=== PATIENT | female | born 1950 | race Caucasian/White ===

== ENCOUNTER 2019-11-30 09:42 | Outpatient (CLI) | payer MEDICARE, OTHER, SELFPAY ==
[2019-11-30 10:26] LABS: Alanine Aminotransferase 16 U/L (4-35); Alkaline Phosphatase 58 U/L (38-126); Aspartate Amino Transferase 25 U/L (14-36); Bilirubin,Total 0.6 mg/dL (0.2-1.3); Blood Urea Nitrogen 17 mg/dL (7-17); Calcium 9.2 mg/dL (8.4-10.2); Carbon Dioxide 34 mmol/L (22-30); Chloride 98 mmol/L (98-107); Estimated Glomerular Filt Rate > 60; Glucose 92 mg/dL (65-105); Phosphorus 3.5 mg/dL (2.5-4.5); Potassium 4.1 mmol/L (3.4-5.0); Sodium 140 mmol/L (137-145)
[2019-11-30 10:38] LABS: Parathyroid Intact 86.3 pg/mL (7.5-53.5)
[2019-11-30 11:07] LABS: Free T4 Free Thyroxine 0.92 ng/mL (0.78-2.19); Vitamin D 25 Hydroxy 61.5 ng/mL
[2019-11-30 13:35] LABS: Cortisol Baseline 7.72 ug/dL
[2019-12-02 04:16] LABS: Ionized Calcium 5.2 mg/dL (4.8-5.6)
[2019-12-02 13:38] LABS: Adrenocorticotropic Hormone 12 pg/mL (6-50)
[2019-12-03 05:27] LABS: Triiodothyronine T3 Free 2.4 pg/mL (2.3-4.2)
[2019-12-03 12:36] LABS: C-Peptide 1.03 ng/mL (0.80-3.85)
== END 2019-11-30 09:43 | disposition home or self-care (01) ==
PROVIDERS: PCP Family Medicine; Visit Provider Internal Medicine Endocrinology, Diabetes & Metabolism
DX: E03.9 Hypothyroidism, unspecified (principal); E21.3 Hyperparathyroidism, unspecified; E16.2 Hypoglycemia, unspecified; E04.9 Nontoxic goiter, unspecified
CPT/HCPCS: 36415; 80053; 80069; 82024; 82306; 82330; 82533; 83970; 84100; 84439; 84443; 84481; 84681

== ENCOUNTER 2020-06-14 13:51 | Outpatient (CLI) | payer MEDICARE, OTHER, SELFPAY ==
[2020-06-14 14:33] LABS: Basophils Percent Auto 0.6 % (0.2-1.2); Eosinophils Absolute Auto 0.1 K/mm3 (0-0.3); Eosinophils Percent Auto 2.2 % (0-4.4); Hematocrit 43.8 % (37.0-47.0); Hemoglobin 14.8 g/dL (12.0-15.0); Immature Granulocyte Absolute 0.01 K/mm3 (0.00-0.031); Immature Granulocyte Percent A 0.2 % (0-0.5); Lymphocytes Absolute Auto 1.14 K/mm3 (0.9-3.2); Lymphocytes Percent Auto 22.4 % (18.3-44.2); Mean Corpuscular HGB Conc 33.8 g/dl (32-36); Mean Corpuscular Hemoglobin 33.1 pg (26-34); Mean Platelet Volume 10.2 fl (7.4-10.4); Monocytes Absolute Auto 0.4 K/mm3 (0.1-0.6); Monocytes Percent Auto 8.4 % (2.6-8.5); Neutrophils Absolute Auto 3.4 K/mm3 (1.3-6.7); Neutrophils Percent Auto 66.2 % (45.5-73.1); Platelet Count Result 189 k/mm3 (150-375); Red Blood Count 4.47 M/mm3 (4.2-5.4); Red Cell Distribution Width 12.4 % (11.5-14.5); White Blood Count 5.1 K/mm3 (4.5-10.0)
[2020-06-14 16:43] LABS: Albumin Level 4.3 g/dL (3.5-5.1); Anion Gap 6 mmol/L (8-16); Blood Urea Nitrogen 19 mg/dL (7-17); Calcium 9.3 mg/dL (8.4-10.2); Carbon Dioxide 31 mmol/L (22-30); Chloride 99 mmol/L (98-107); Estimated Glomerular Filt Rate > 60; Glucose 97 mg/dL (65-105); Sodium 136 mmol/L (137-145)
[2020-06-14 16:55] LABS: Parathyroid Intact 64.6 pg/mL (7.5-53.5)
[2020-06-14 17:02] LABS: Free T4 Free Thyroxine 0.99 ng/mL (0.78-2.19); Vitamin D 25 Hydroxy 66.4 ng/mL
[2020-06-17 05:48] LABS: Triiodothyronine T3 Free 2.3 pg/mL (2.3-4.2)
[2020-06-17 05:50] LABS: Ionized Calcium 5.2 mg/dL (4.8-5.6)
[2020-06-20 23:47] LABS: Calcium/Creatinine Ratio, Ur 328 mg/g creat (10-320); Urine Calcium, Random 4.1 mg/dL (***); Urine Creatinine, Random 13 mg/dL (20-275)
== END 2020-06-14 13:52 | disposition home or self-care (01) ==
PROVIDERS: Internal Medicine Endocrinology, Diabetes & Metabolism; PCP Family Medicine; Visit Provider Internal Medicine Hematology & Oncology
DX: R71.8 Other abnormality of red blood cells (principal); E03.9 Hypothyroidism, unspecified; E21.3 Hyperparathyroidism, unspecified
CPT/HCPCS: 36415; 80069; 82306; 82310; 82330; 82570; 82607; 83970; 84439; 84443; 84481; 85025

== ENCOUNTER 2020-06-28 10:29 | Outpatient (CLI) | payer MEDICARE, OTHER, SELFPAY ==
--- NOTE | 2020-06-28 10:37 | EST_ITS ---
Patient Info Name: Oralia العراقي Age: 69 years : 1950 Gender: Female Ht: 60 in Wt: 109 lbs BSA: 1.45 m2 HR: 48 bpm BP: 152 / 72 mmHg Heart Rhythm: Sinus Rhythm Technical Quality: Excellent Exam Date: 06/28/2020 10:59 AM Exam Location: [facility] Pulmonary Patient Status: Outpatient Admit Date: 06/28/2020 Staff Ordering Physician: Lisy Gayle MD Machine Grainer: Esther Guzman RDCS Attending Provider: Corazon Jameson ANP Referring Physician: Nalini FRANKLIN; Exercise Technologist: Abner Avila RDCS, RT Exam Type: CA stress echo Study Info Indications R07.9 - Chest pain, unspecified Treadmill exercise stress echocardiogram is performed. Summary 1. No abnormal ST/T wave changes with exercise. 2. No arrhythmias were observed during the examination. 3. Normal left ventricular systolic function with no regional wall motion abnormalities noted at rest and estimated EF of 65%. 4. Left ventricular ejection fraction is hyperdynamic with smaller cavity size no wall motion abnormalities, and ejection fraction of 80%.. 5. Atypical stress-induced L breast sensation. 6. Good exercise capacity for age. 7. Normal heart rate blood pressure response to exercise. 8. Overall normal study without evidence of myocardial ischemia by electrocardiogram or by echocardiogram. Stress Echo Findings Left Ventricle Normal left ventricular systolic function with no regional wall motion abnormalities noted at rest and estimated EF of 65%. Left ventricular ejection fraction is hyperdynamic with smaller cavity size no wall motion abnormalities, and ejection fraction of 80%.. Protocol: John Stress ECG Details Stage: REST Duration (min): 5 min : 1 sec Speed (mph): 0.0 Grade (%): 0 HR (bpm): 55 SBP (mmHg): 152 DBP (mmHg): 72 METS: --- Stage: REST Duration (min): 5 min : 40 sec Speed (mph): 0.0 Grade (%): 0 HR (bpm): 49 SBP (mmHg): 152 DBP (mmHg): 72 METS: --- Stage: REST Duration (min): 21 min : 17 sec Speed (mph): 0.0 Grade (%): 0 HR (bpm): 59 SBP (mmHg): 152 DBP (mmHg): 72 METS: --- Stage: STAGE 1 Duration (min): 1 min : 0 sec Speed (mph): 1.7 Grade (%): 10 HR (bpm): 87 SBP (mmHg): 152 DBP (mmHg): 72 METS: --- Stage: STAGE 1 Duration (min): 2 min : 0 sec Speed (mph): 1.7 Grade (%): 10 HR (bpm): 104 SBP (mmHg): 152 DBP (mmHg): 72 METS: --- Stage: STAGE 1 Duration (min): 3 min : 0 sec Speed (mph): 1.7 Grade (%): 10 HR (bpm): 117 SBP (mmHg): 192 DBP (mmHg): 86 METS: --- Stage: STAGE 2 Duration (min): 1 min : 0 sec Speed (mph): 2.5 Grade (%): 12 HR (bpm): 126 SBP (mmHg): 192 DBP (mmHg): 86 METS: --- Stage: STAGE 2 Duration (min): 2 min : 0 sec Speed (mph): 2.5 Grade (%): 12 HR (bpm): 129 SBP (mmHg): 182 DBP (mmHg): 90 METS: --- Stage: STAGE 2 Duration (min): 2 min : 59 sec Speed (mph): 2.5 Grade (%): 12 HR (bpm): 133 SBP (mmHg): 182 DBP (mmHg): 90 METS:
== END 2020-06-28 10:30 | disposition home or self-care (01) ==
PROVIDERS: PCP Family Medicine; Visit Provider Family Medicine
DX: R07.9 Chest pain, unspecified (principal); R53.83 Other fatigue; R60.0 Localized edema
CPT/HCPCS: 93351

== ENCOUNTER 2021-03-02 11:41 | Outpatient (CLI) | payer MEDICARE, OTHER, SELFPAY ==
[2021-03-02 11:59] LABS: Basophils Percent Auto 0.5 % (0.2-1.2); Eosinophils Absolute Auto 0.1 K/mm3 (0-0.3); Hematocrit 45.1 % (37.0-47.0); Hemoglobin 15.3 g/dL (12.0-15.0); Immature Granulocyte Absolute 0.01 K/mm3 (0.00-0.031); Immature Granulocyte Percent A 0.2 % (0-0.5); Lymphocytes Absolute Auto 1.02 K/mm3 (0.9-3.2); Lymphocytes Percent Auto 18.3 % (18.3-44.2); Mean Corpuscular HGB Conc 33.9 g/dl (32-36); Mean Corpuscular Hemoglobin 33.8 pg (26-34); Mean Corpuscular Volume 99.6 fl (80-100); Mean Platelet Volume 10.3 fl (7.4-10.4); Monocytes Absolute Auto 0.5 K/mm3 (0.1-0.6); Monocytes Percent Auto 8.1 % (2.6-8.5); Neutrophils Percent Auto 70.9 % (45.5-73.1); Platelet Count Result 182 k/mm3 (150-375); Red Blood Count 4.53 M/mm3 (4.2-5.4); Red Cell Distribution Width 12.8 % (11.5-14.5); White Blood Count 5.6 K/mm3 (4.5-10.0)
== END 2021-03-02 11:42 | disposition home or self-care (01) ==
LOC: ANHLAB 11:43
PROVIDERS: PCP Family Medicine; Visit Provider Internal Medicine Hematology & Oncology
DX: D75.89 Other specified diseases of blood and blood-forming organs (principal)
CPT/HCPCS: 36415; 82607; 85025

== ENCOUNTER 2021-08-24 11:19 | Outpatient (CLI) | payer MEDICARE, OTHER, SELFPAY ==
[2021-08-24 13:19] LABS: Creatinine Urine 44.3 mg/dL
[2021-08-24 13:25] LABS: Creatinine 24 Hour Urine 0.8 gm/24 (0.8-1.8); Total Volume 24 Hour Urine 1900 ml
[2021-08-29 06:29] LABS: Total Volume 1900 mL; Urine Calcium 6.6 mg/dL
== END 2021-08-24 11:20 | disposition home or self-care (01) ==
PROVIDERS: PCP Family Medicine; Visit Provider Internal Medicine Endocrinology, Diabetes & Metabolism
DX: E21.3 Hyperparathyroidism, unspecified (principal); E21.5 Disorder of parathyroid gland, unspecified; E03.9 Hypothyroidism, unspecified; R82.994 Hypercalciuria
CPT/HCPCS: 81050; 82340; 82570

== ENCOUNTER 2021-10-23 14:14 | Outpatient (CLI) | payer MEDICARE, OTHER, SELFPAY ==
[2021-10-23 15:28] LABS: Free T4 Free Thyroxine 1.28 ng/mL (0.78-2.19)
== END 2021-10-23 14:15 | disposition home or self-care (01) ==
PROVIDERS: PCP Hospitalist; Visit Provider Internal Medicine Endocrinology, Diabetes & Metabolism
DX: E03.9 Hypothyroidism, unspecified (principal)
CPT/HCPCS: 36415; 84439; 84443

== ENCOUNTER 2022-03-01 09:54 | Outpatient (CLI) | payer MEDICARE, OTHER, SELFPAY ==
[2022-03-01 10:52] LABS: Basophils Percent Auto 0.6 % (0.2-1.2); Eosinophils Absolute Auto 0.1 K/mm3 (0-0.3); Eosinophils Percent Auto 1.6 % (0-4.4); Hematocrit 43.9 % (37.0-47.0); Hemoglobin 14.6 g/dL (12.0-15.0); Immature Granulocyte Absolute 0.01 K/mm3 (0.00-0.031); Immature Granulocyte Percent A 0.3 % (0-0.5); Lymphocytes Absolute Auto 0.83 K/mm3 (0.9-3.2); Lymphocytes Percent Auto 26.3 % (18.3-44.2); Mean Corpuscular HGB Conc 33.3 g/dl (32-36); Mean Corpuscular Hemoglobin 34.2 pg (26-34); Mean Corpuscular Volume 102.8 fl (80-100); Mean Platelet Volume 10.8 fl (7.4-10.4); Monocytes Absolute Auto 0.4 K/mm3 (0.1-0.6); Monocytes Percent Auto 11.4 % (2.6-8.5); Neutrophils Absolute Auto 1.9 K/mm3 (1.3-6.7); Neutrophils Percent Auto 59.8 % (45.5-73.1); Platelet Count Result 149 k/mm3 (150-375); Red Blood Count 4.27 M/mm3 (4.2-5.4); Red Cell Distribution Width 12.9 % (11.5-14.5); White Blood Count 3.2 K/mm3 (4.5-10.0)
[2022-03-01 11:04] LABS: Alanine Aminotransferase 19 U/L (6-35); Albumin Level 4.3 g/dL (3.5-5.1); Alkaline Phosphatase 80 U/L (38-126); Anion Gap 6 mmol/L (8-16); Aspartate Amino Transferase 32 U/L (14-36); Bilirubin,Total 0.8 mg/dL (0.2-1.3); Blood Urea Nitrogen 13 mg/dL (7-17); Carbon Dioxide 31 mmol/L (22-30); Chloride 102 mmol/L (98-107); Estimated Glomerular Filt Rate > 60; Glucose 95 mg/dL (65-110); Sodium 139 mmol/L (137-145)
[2022-03-01 12:09] LABS: Vitamin B12 > 1000.0 pg/mL (239-931)
== END 2022-03-01 09:55 | disposition home or self-care (01) ==
LOC: ANHLAB 09:57
PROVIDERS: PCP Hospitalist; Visit Provider Internal Medicine Hematology & Oncology
DX: D75.89 Other specified diseases of blood and blood-forming organs (principal)
CPT/HCPCS: 36415; 80053; 82607; 82746; 85025

== ENCOUNTER 2022-08-29 09:00 | Outpatient (CLI) | payer MEDICARE, OTHER, SELFPAY ==
[2022-08-29 10:15] LABS: Albumin Level 4.3 g/dL (3.5-5.1); Anion Gap 11 mmol/L (8-16); Blood Urea Nitrogen 12 mg/dL (7-17); Calcium 9.1 mg/dL (8.4-10.2); Carbon Dioxide 31 mmol/L (22-30); Chloride 97 mmol/L (98-107); Estimated Glomerular Filt Rate > 60; Glucose 87 mg/dL (65-110); Phosphorus 3.5 mg/dL (2.5-4.5); Potassium 3.8 mmol/L (3.4-5.0); Sodium 139 mmol/L (137-145)
[2022-08-29 10:27] LABS: Parathyroid Intact 78.3 pg/mL (7.5-53.5)
[2022-08-29 13:16] LABS: Vitamin D 25 Hydroxy 72.7 ng/mL
== END 2022-08-29 09:01 | disposition home or self-care (01) ==
PROVIDERS: PCP Internal Medicine; Visit Provider Internal Medicine Endocrinology, Diabetes & Metabolism
DX: E03.9 Hypothyroidism, unspecified (principal); E83.51 Hypocalcemia; M81.0 Age-related osteoporosis without current pathological fracture; R79.89 Other specified abnormal findings of blood chemistry
CPT/HCPCS: 36415; 80069; 82306; 83970; 84439; 84443

== ENCOUNTER 2022-09-27 11:41 | Outpatient (CLI) | payer MEDICARE, OTHER, SELFPAY ==
[2022-09-27 12:21] LABS: Creatinine Urine 46.4 mg/dL
[2022-09-27 14:52] LABS: Creatinine 24 Hour Urine 0.7 gm/24 (0.8-1.8); Total Volume 24 Hour Urine 1600 ml
[2022-10-03 12:42] LABS: Total Volume 1600 mL; Urine Calcium 7.6 mg/dL
== END 2022-09-27 11:42 | disposition home or self-care (01) ==
LOC: ANHLAB 11:46
PROVIDERS: PCP Internal Medicine; Visit Provider Internal Medicine Endocrinology, Diabetes & Metabolism
DX: E21.3 Hyperparathyroidism, unspecified (principal); M81.0 Age-related osteoporosis without current pathological fracture; R82.994 Hypercalciuria
CPT/HCPCS: 81050; 82340; 82570

== ENCOUNTER 2023-03-05 11:03 | Outpatient (CLI) | payer MEDICARE, OTHER, SELFPAY ==
[2023-03-05 11:17] LABS: Basophils Percent Auto 0.8 % (0.2-1.2); Eosinophils Absolute Auto 0.1 K/mm3 (0-0.3); Eosinophils Percent Auto 1.9 % (0-4.4); Hematocrit 41.2 % (37.0-47.0); Hemoglobin 14.6 g/dL (12.0-15.0); Immature Granulocyte Absolute 0.01 K/mm3 (0.00-0.031); Immature Granulocyte Percent A 0.3 % (0-0.5); Lymphocytes Absolute Auto 0.66 K/mm3 (0.9-3.2); Lymphocytes Percent Auto 18.1 % (18.3-44.2); Mean Corpuscular HGB Conc 35.4 g/dl (32-36); Mean Corpuscular Hemoglobin 35.3 pg (26-34); Mean Corpuscular Volume 99.5 fl (80-100); Mean Platelet Volume 10.1 fl (7.4-10.4); Monocytes Absolute Auto 0.3 K/mm3 (0.1-0.6); Monocytes Percent Auto 9.3 % (2.6-8.5); Neutrophils Absolute Auto 2.5 K/mm3 (1.3-6.7); Neutrophils Percent Auto 69.6 % (45.5-73.1); Platelet Count Result 177 k/mm3 (150-375); Red Blood Count 4.14 M/mm3 (4.2-5.4); Red Cell Distribution Width 12.3 % (11.5-14.5); White Blood Count 3.6 K/mm3 (4.5-10.0)
[2023-03-05 14:10] LABS: Alanine Aminotransferase 18 U/L (6-35); Albumin Level 4.3 g/dL (3.5-5.1); Alkaline Phosphatase 54 U/L (38-126); Anion Gap 3 mmol/L (8-16); Aspartate Amino Transferase 29 U/L (14-36); Bilirubin,Total 0.7 mg/dL (0.2-1.3); Blood Urea Nitrogen 15 mg/dL (7-17); Calcium 8.9 mg/dL (8.4-10.2); Carbon Dioxide 36 mmol/L (22-30); Chloride 97 mmol/L (98-107); Estimated Glomerular Filt Rate > 60; Glucose 97 mg/dL (65-110); Potassium 4.1 mmol/L (3.4-5.0); Sodium 136 mmol/L (137-145)
[2023-03-05 14:27] LABS: Free T4 Free Thyroxine 1.27 ng/mL (0.78-2.19)
[2023-03-05 15:17] LABS: Folic Acid 7.8 ng/mL (2.76->20)
== END 2023-03-05 11:04 | disposition home or self-care (01) ==
PROVIDERS: PCP Internal Medicine Endocrinology, Diabetes & Metabolism; Visit Provider Internal Medicine Hematology & Oncology
DX: E03.9 Hypothyroidism, unspecified (principal); M81.0 Age-related osteoporosis without current pathological fracture; E21.3 Hyperparathyroidism, unspecified; R79.89 Other specified abnormal findings of blood chemistry; D75.89 Other specified diseases of blood and blood-forming organs
CPT/HCPCS: 36415; 80053; 82607; 82746; 84439; 84443; 85025

== ENCOUNTER 2024-03-03 11:06 | Outpatient (CLI) | payer MEDICARE, OTHER, SELFPAY ==
[2024-03-03 11:26] LABS: Basophils Percent Auto 0.6 % (0.2-1.2); Eosinophils Percent Auto 0.6 % (0-4.4); Hematocrit 40.9 % (37.0-47.0); Hemoglobin 14.7 g/dL (12.0-15.0); Lymphocytes Absolute Auto 0.67 K/mm3 (0.9-3.2); Lymphocytes Percent Auto 19.4 % (18.3-44.2); Mean Corpuscular HGB Conc 35.9 g/dl (32-36); Mean Corpuscular Hemoglobin 35.2 pg (26-34); Mean Corpuscular Volume 97.8 fl (80-100); Mean Platelet Volume 9.6 fl (7.4-10.4); Monocytes Absolute Auto 0.4 K/mm3 (0.1-0.6); Monocytes Percent Auto 11.3 % (2.6-8.5); Neutrophils Absolute Auto 2.4 K/mm3 (1.3-6.7); Neutrophils Percent Auto 68.1 % (45.5-73.1); Platelet Count Result 193 k/mm3 (150-375); Red Blood Count 4.18 M/mm3 (4.2-5.4); Red Cell Distribution Width 12.2 % (11.5-14.5); White Blood Count 3.5 K/mm3 (4.5-10.0)
[2024-03-03 18:25] LABS: Alanine Aminotransferase 18 U/L (6-35); Albumin Level 4.2 g/dL (3.5-5.1); Alkaline Phosphatase 65 U/L (38-126); Anion Gap 5 mmol/L (4-12); Aspartate Amino Transferase 25 U/L (14-36); Bilirubin,Total 0.7 mg/dL (0.2-1.3); Blood Urea Nitrogen 12 mg/dL (7-17); Calcium 9.1 mg/dL (8.4-10.2); Carbon Dioxide 29 mmol/L (22-30); Chloride 97 mmol/L (98-107); Estimated Glomerular Filt Rate > 60; Glucose 92 mg/dL (65-110); Sodium 131 mmol/L (137-145)
== END 2024-03-03 11:07 | disposition home or self-care (01) ==
LOC: ANHLAB 11:09
PROVIDERS: PCP Internal Medicine Endocrinology, Diabetes & Metabolism; Visit Provider Internal Medicine Hematology & Oncology
DX: D75.89 Other specified diseases of blood and blood-forming organs (principal)
CPT/HCPCS: 36415; 80053; 82607; 82746; 85025

== ENCOUNTER 2025-03-04 11:58 | Outpatient (CLI) | payer MEDICARE, OTHER, SELFPAY ==
--- OUTSIDE RECORDS SUMMARY | 2025-03-04 12:01 | XMS_ITS | Encounter Summary ---
Author Organization [facility] Address [address] [place] [address] Phone Care Team Providers Care Interpreter Translator Name Role Phone Carli Durant MD Primary Care Provider [phone] Jimmy Armando MD Primary Care Provider [phone] Bulmaro Saravia MD Unavailable [phone] Kulwinder Lu MD Unavailable [phone] Horacio Charlton MD Unavailable [phone] Antonio Deras MD Unavailable [phone] Zenobia Laughlin DO Unavailable [phone] Sarahi Taylor MD Unavailable Chanelle Khan MD Primary Care Provider Encounter Details Date Type Department Care Team (Late st Contact Info) Description 06/27/2021 Orders Only [facility] Scanning, Provider Social History Tobacco Use Types Packs/Day Years Used Date Smoking Tobacco: Former Smokeless Tobacco: Never PHQ-2 Answer Date Recorded PHQ-2 Total Score 0 02/21/2021 Comments No Sex and Gender Information Value Date Recorded Sex Assigned at Not on file Legal Sex Female 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 Gender Identity Female 07/15/2019 1:13 PM CDT Sexual Orientation Not on file documented as of this encounter Plan of Treatment Not on file documented as of this encounter Procedures Procedure Name Priority Date/Time Associated Diagnosis Comments SCAN - LABS 06/27/2021 documented in this encounter Results * SCAN - LABS (06/27/2021) us Provider Scanning Final Result documented in this encounter Visit Diagnoses Not on filedocumented in this encounter Additional Health Concerns Infection Onset Date Last Indicated Resolved Time COVID: Suspected 11/01/2021 11/01/2021 11/01/2021 9:05 PM AUTO DAMAGE APPRAISER COVID: Suspected 10/16/2022 10/16/2022 10/16/2022 7:20 PM AUTO DAMAGE APPRAISER documented as of this encounter Care Teams Interpreter Translator Relationship Specialty Start Date End Date Carli Durant MD [address] [place] [id number] PCP - General Internal Medicine 01/03/21 05/27/22 Jimmy Armando MD [address] [place] [address] [id number] PCP - General Internal Medicine 05/28/22 06/08/24 Chanelle Khan MD [address] [place] [address] [phone] PCP - General Internal Medicine 06/09/24 Bulmaro Saravia MD [address] [place] [address] [phone] Consulting Physician Cardiology 09/21/23 Kulwinder Lu MD [address] [place] [address] Referring Physician Dermatology 09/21/23 Horacio Charlton MD [address] [place] [address] Consulting Physician Obstetrics and Gynecology 09/21/23 Antonio Deras MD [address] [place] [phone] Referring Physician Hematology 09/21/23 [place] [address] [place] [address] [address] [place] [address] Consulting Physician Orthopedic Surgery 09/21/23 Sarahi Taylor MD [facility] [address] [place] [address] Consulting Physician Rheumatology 09/21/23 DR. MEGAN DANG 09/19/23 documented as of this encounter
--- OUTSIDE RECORDS SUMMARY | 2025-03-04 12:01 | XMS_ITS | Encounter Summary ---
Author Organization [facility] Address [address] [place] [address] Care Team Providers Care Senior Product Marketing Manager Name Role Phone Jimmy Armando MD Primary Care Provider [phone] Encounter Details Date Type Department Care Team (Latest Contact Info) Description 04/12/2008 Outpatient Historical HIS [facility] Penny Fuller MD [address] [facility] [address] [place] [phone] Unspecified Hypothyroidism Social History Tobacco Use Types Packs/Day Years Used Date Smoking Tobacco: Never Assessed Comments Unknown Sex and Gender Information Value Date Recorded Sex Assigned at Not on file Legal Sex Female 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 Gender Identity Not on file Sexual Orientation Not on file documented as of this encounter Plan of Treatment Upcoming Encounters Date Type Department Care Team (Late st Contact Info) Description 03/08/2025 3:30 PM CDT Office Visit [facility] Oncology and Hematology - [place] [address] [place] [address] [address] [place] [address] Antonio Deras MD [address] [facility] [address] [place] [address] documented as of this encounter Procedures Procedure Name Priority Date/Time Associated Diagnosis Comments TSH REFLEXIVE Routine 04/12/2008 12:41 PM CDT CBC WITHOUT DIFFERENTIAL Routine 04/12/2008 12:41 PM CDT LIPID PANEL Routine 04/12/2008 12:41 PM CDT COMPREHENSIVE METABOLIC PANEL Routine 04/12/2008 12:41 PM CDT documented in this encounter Results * COMPREHENSIVE METABOLIC PANEL (04/12/2008 12:41 PM CDT) CALCIUM 8.7 8.4 - 10.2 mg/dL [facility] CHLORIDE 101 96 - 108 mmol/L [facility] ALBUMIN 4.2 3.4 - 4.8 g/dL [facility] CREATININE 0.65 0.51 - 0.95 mg/dL [facility] SODIUM 139 135 - 145 mmol/L [facility] ALT 14 0 - 31 U/L [facility] ALKALINE PHOSPHATASE 70 35 - 104 U/L [facility] BILIRUBIN TOTAL 0.6 0.2 - 1.0 mg/dL [facility] CO2 27 22 - 30 mmol/L [facility] TOTAL PROTEIN 6.9 6.3 - 8.6 g/dL [facility] POTASSIUM 3.8 3.5 - 4.9 mmol/L [facility] GLUCOSE 86 65 - 99 mg/dL [facility] AST 19 12 - 32 U/L [facility] BUN 13 6 - 20 mg/dL [facility] GFR, >60 >=60 mL/min/1.7 sq meter [facility] GFR >60 >=60 mL/min/1.7 sq meter [facility] Comment: Modification of Diet in Renal Disease (MDRD) study formula. Estimated GFR rate interpretative information for both Americans and non- Americans is available on the [facility] Intranet at: [email or web address] Select: Lab Policies and Procedures Select: Reference Ranges - GFR Blood specimen (specimen) 04/12/2008 12:41 PM CDT 04/12/2008 1:03 PM CDT Penny Kan MD CHEMISTRY ORDERABLES Edited Performing Organization Address [facility] Co de Phone Number [facility] CLIA# [id number] [address] [place] [address] * TSH REFLEXIVE (04/12/2008 12:41 PM CDT) Pathologist [facility] TSH 1.99 0.27 - 4.20 uU/mL [facility] Blood specimen (specimen) 04/12/2008 12:41 PM CDT 04/12/2008 1:03 PM CDT Penny Kan MD CHEMISTRY ORDERABLES Final Resu lt Performing Organization Address [facility]/ZIP Co de Phone Number [facility] CLIA# [id number] [address] [place] [address] * (ABNORMAL) CBC WITHOUT DIFFERENTIAL (04/12/2008 12:41 PM CDT) HEMOGLOBIN 14.6 11.8 - 14.8 g/dL [facility] RDW 12.6 11.5 - 14.5 % [facility] WBC 5.4 4.0 - 9.8 K/uL [facility] MCH 33.3(H) 27.2 - 32.6 pg [facility] MPV 11.1 9.3 - 12.4 fL [facility] HEMATOCRIT 41.8 35.5 - 44.0 % [facility] RDW-STDEV 43.8 37.1 - 48.7 fL [facility] RBC 4.38 3.90 - 4.90 M/uL [facility] MCHC 34.9 31.5 - 35.5 % [facility] MCV 95.4 82.0 - 99.0 fL [facility] PLATELETS 180 140 - 350 K/uL [facility] Blood specimen (specimen) 04/12/2008 12:41 PM CDT 04/12/2008 1:05 PM CDT Penny Kan MD HEMATOLOGY ORDERABLES Final Res ult Performing Organization Address [facility]/ZIP Co de Phone Number [facility] CLIA# [id number] [address] [place] [address] * (ABNORMAL) LIPID PANEL (04/12/2008 12:41 PM CDT) CHOL/HDL RATIO 3.5 2.0 - 5.0 [facility] TRIGLYCERIDE 89 10 - 149 mg/dL [facility] HDL 56 40 - 59 mg/dL [facility] CHOLESTEROL 196 100 - 199 mg/dL [facility] LDL CALCULATED 122(H) <=99 mg/dL [facility] LIPID PANEL COMMENT See Below [facility] Comment: The adult ATP and pediatric NCEP classifications for lipids are available on the [facility] Intranet at: [email or web address] Select: Lab Policies and Procedures,Current Select: Lipid Panel Interpretation Blood specimen (specimen) 04/12/2008 12:41 PM CDT 04/12/2008 1:03 PM CDT Penny Kan MD CHEMISTRY ORDERABLES Edited Performing Organization Address City/[facility]/ZIP Co de Phone Number [facility] CLIA# [id number] [address] [place] [address] documented in this encounter Visit Diagnoses Diagnosis Unspecified hypothyroidism documented in this encounter Care Teams Senior Product Marketing Manager Relationship Specialty Start Date End Date Jimmy Armando MD PCP - General Internal Medicine 03/06/23 documented as of this encounter
--- OUTSIDE RECORDS SUMMARY | 2025-03-04 12:01 | XMS_ITS | Encounter Summary ---
Author Organization [facility] Address [address] [place] [address] Care Team Providers Care Glazing Machine Operator Name Role Phone Jimmy Armando MD Primary Care Provider [phone] Encounter Details Date Type Department Care Team (Latest Contact Info) Description 10/29/2007 Outpatient Historical HIS [facility] Penny Fuller MD [address] [facility] [address] [place] [phone] Unspecified Hypothyroidism Social History Tobacco Use Types Packs/Day Years Used Date Smoking Tobacco: Never Assessed Comments Unknown Sex and Gender Information Value Date Recorded Sex Assigned at Not on file Legal Sex Female 4:53 AM 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 Gender Identity Not on file Sexual Orientation Not on file documented as of this encounter Plan of Treatment Upcoming Encounters Date Type Department Care Team (Late st Contact Info) Description 03/08/2025 3:30 PM CDT Office Visit [facility] Oncology and Hematology - [place] [address] [place] [address] [address] [place] [address] Antonio Deras MD [address] [facility] [address] [place] [address] documented as of this encounter Procedures Procedure Name Priority Date/Time Associated Diagnosis Comments TSH WITH REFLEX FT4 AND FT3 Routine 10/29/2007 12:14 PM 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 LIPID PANEL Routine 10/29/2007 12:14 PM 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 documented in this encounter Results * TSH WITH REFLEX FT4 AND FT3 (10/29/2007 12:14 PM 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) TSH 1.54 0.27 - 4.20 uU/mL INTERFACE SYSTEM 10/29/2007 12:1 4 PM 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 Penny Kan MD CHEMISTRY ORDERABLES Edited Performing Organization Address City/[facility] de Phone Number INTERFACE SYSTEM Refer to clinic/hospital department * (ABNORMAL) LIPID PANEL (10/29/2007 12:14 PM 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) CHOLESTEROL 201(H) 100 - 199 mg/dL INTERFACE SYSTEM TRIGLYCERIDE 114 10 - 149 mg/dL INTERFACE SYSTEM HDL 57 40 - 59 mg/dL INTERFACE SYSTEM CHOL/HDL RATIO 3.5 2.0 - 5.0 INTER FACE SYSTEM LDL CALCULATED 121(H) <=99 mg/dL INTERFACE SYSTEM LIPID PANEL COMMENT See Below INTERFACE SYSTEM Comment: The adult ATP and pediatric NCEP classifications for lipids are available on the [facility] Intranet at: [email or web address] Select: Lab Policies and Procedures,Current Select: Lipid Panel Interpretation 10/29/2007 12:1 4 PM 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 us Penny Kan MD CHEMISTRY ORDERABLES Edited Performing Organization Address City/[facility] Co de Phone Number INTERFACE SYSTEM Refer to clinic/hospital department documented in this encounter Visit Diagnoses Diagnosis Unspecified hypothyroidism documented in this encounter Care Teams Glazing Machine Operator Relationship Specialty Start Date End Date Jimmy Armando MD PCP - General Internal Medicine 03/06/23 documented as of this encounter
--- OUTSIDE RECORDS SUMMARY | 2025-03-04 12:01 | XMS_ITS | Continuity of Care Document ---
Author Organization [facility] [address] [place] [address] Phone Care Team Providers Care Archery Equipment Repairer Name Role Phone Unavailable Unavailable Unavailable Allergies, Adverse Reactions, Alerts Substance Reaction Status Criticality No Known Allergies Active No Inform ation Medications Medication Instructions Dosage Effective Dates (start - stop) Status Comments ranitidine 75 mg tablet take 1 tablet (75MG) by oral route 2 times every day with a glass of water - Active TRAZODONE HCL (unknown strength) take 1 tablet (100MG) by oral route 2 times every day after meals Not Available - Active ARMOUR THYROID (unknown strength) Not Available - Active EVISTA (unknown strength) take 1 tablet (60MG) by oral route every day Not Available - Active ZYRTEC (unknown strength) Not Available - Active MP MAGNESIUM (unknown strength) Not Available - Active CALCIO DAMIAN (unknown strength) Not Available - Active MULTIPLE VITAMINS (unknown strength) take 1 tablet by oral route every day with food Not Available - Active FISH OIL (unknown strength) Not Available - Active hydrochlorothiazide 12.5 mg capsule take 1 capsule by oral route every day 12.5 MG - Active Strattera 80 mg capsule take 1 capsule by oral route every day 80 MG - Active hydrochlorothiazide 12.5 mg capsule take 2 capsule (25MG) by oral route every day 25 MG - No Longer Active PRINIVIL (unknown strength) take 1 tablet (10MG) by oral route every day Not Available - No Longer Active Procedures Procedure Date OFFICE/OUTPATIENT VISIT, EST VISUAL FIELD EXAMINATION(S) OPTIC NERVE HEAD EVAL DONE VISUAL FUNCT STATUS ASSESS OFFICE/OUTPATIENT VISIT, EST GDX Optic Nerve REFRACTION Cataract Glasses OFFICE/OUTPATIENT VISIT, EST VISUAL FIELD EXAMINATION(S) OFFICE/OUTPATIENT VISIT, EST GDX Optic Nerve OFFICE/OUTPATIENT VISIT, EST VISUAL FIELD EXAMINATION(S) OFFICE/OUTPATIENT VISIT, [facility] GDX Optic Nerve REFRACTION Advance Directives Directive Yes / No Effective Date File Name No Information Encounters Encounter Description Practice Location Reason(s) For Visit Diagnoses Date Provider Providers Copied on Encounter OFFICE/OUTPA TIENT VISIT, [facility], [address] [place] [address], [id number], tel:[phone] [facility] Glaucoma, suspect (chief complaint) Lattice degeneration of retinaRetinosc hisisOpen angle with borderline glaucoma findingsSenile nuclear sclerosis 5 No Information OFFICE/OUTPA TIENT VISIT, [facility], [address] [place] [address], [id number], tel:[phone] [facility] Glaucomatous atrophy (cupping) of optic discOpen angle with borderline glaucoma findingsSenile nuclear sclerosisRetin oschisis, unspecifiedLat mino degeneration of retina 4 No Information OFFICE/OUTPA TIENT VISIT, [facility], [address] [place] [address], [id number], tel:[phone] [facility] Glaucomatous atrophy (cupping) of optic discOpen angle with borderline glaucoma findingsSenile nuclear sclerosis 3 No Information OFFICE/OUTPA TIENT VISIT, [facility], [address] [place] [address], [id number], [place] tel:[phone] [facility] Glaucomatous atrophy (cupping) of optic discCataract, Nuclear SclerosisGlauc eden Suspect 2 No Information OFFICE/OUTPA TIENT VISIT, [facility], [address] [address], [place], [place], [id number], tel:[phone] [facility] No Information 2 No Information OFFICE/OUTPA TIENT VISIT, [facility], [address] [address], [place], [place], [id number], tel:[phone] [facility] Senile nuclear sclerosisMyopi aOpen angle with borderline glaucoma findingsGlauco matous atrophy (cupping) of optic discSenile nuclear sclerosis 1 No Information Family History Family Member Type Diagnosis Age At Onset Father Problem (finding) diabetes melli tus in first degree relative Brother Problem (finding) glaucoma Payers Payer name Insurance type Covered democrat ID Authoriza tion(s) [place]IC[place] OF [place] MB [id number] [facility] CI [id number] Social History Type Description Quantity Date Captured Comments Alcohol Use Details Unknown Caffeine Use Details Unknown Tobacco Use Status No Information Smoking Status No Information Sex Female Chief Complaint And Reason For Visit From encounter dated '01/16/2015 14:15'. Glaucoma, suspect (chief complaint). Description: The 64 year old female presents for evaluation ofGlaucoma, suspect in the right eye and left eye. It started about 6 month(s) ago. The symptom is constant. The condition is stable. Reason For Referral Reason For Referral No Information History Of Present Illness Encounter Date Complaint History Of Prese nt Illness Glaucoma, suspect The 64 year ol d female presents for evaluation of Glaucoma, suspect in the right eye and left eye. It started about 6 month(s) ago. The symptom is constant. The condition is stable. Functional Status Date Functional Assessmen t No Information Instructions Date Instruction Additional Infor court Follow up - RTO 6-12 mo for IOP and GDX w/RY Impression/Plan - Co ndition is stable, no treatment at this time. Will continue to monitor. Related to Senile nuclear sclerosis Impression/Plan - Di scussed diagnosis in detail with patient. No treatment is required at this time. Will continue to observe condition and or symptoms. 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 Will continue to observe condition and or symptoms. Reassured patient of current condition and treatment. Call if VA worsens. 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 No treatment is required at this time. Will continue to observe condition and or symptoms. Reassured patient of current condition and treatment. Call if VA worsens. 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 No treatment is required at this time. Will continue to observe condition and or symptoms. 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 Pt is no longer seeing Dr. Box. 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 No treatment is required at this time. Will continue to observe condition and or symptoms. IOP stable, well controlled. GDX no change, will cont to monitor. 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 Explained surgery risks, benefits, procedures and recovery. Patient defers surgery and elects to change glasses first. If there is no improvement, ok to schedule surgery. 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 Related to Glaucoma Suspect Glaucoma Suspect, OU - Glaucoma diagnosis and treatment options were discussed with patient. No treatment is required at the present time. Cornea thin, right VA ok, left VA borderline. Consider drops. Will continue to monitor IOP.VF okay today Related to Glaucoma Suspect Cataract, Nuclear Sc lerosis, OU - Discussed cataract diagnosis with the patient. No treatment is required at this time. Will continue to observe condition and symptoms. Related to Cataract, Nuclear Sclerosis Cataract, Nuclear Sc lerosis, OU - Discussed cataract diagnosis with the patient. No treatment is required at this time. Will continue to observe condition and symptoms. Related to Cataract, Nuclear Sclerosis Glaucomatous atrophy (cupping) of optic disc, OU - Will continue to observe condition and or symptoms. 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 No treatment is required at the present time. Cornea thin, right VA ok, left VA borderline. Consider drops. Will continue to monitor IOP. Related to Glaucoma Suspect - Return in 6 months with Kal Davison MD for IOP check. Related to Glaucoma Suspect Cataract, Nuclear Sc lerosis OU - Educational materials provided:Cataract. Related to Cataract, Nuclear Sclerosis retinal tear, os Cataract, Nuclear Sc lerosis, OU - Discussed cataract diagnosis with the patient. No treatment is required at this time. Will continue to observe condition and symptoms. Related to Cataract, Nuclear Sclerosis Glaucomatous atrophy (cupping) of optic disc, OU - Will continue to observe condition and or symptoms. 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 Related to Glaucoma Suspect Glaucoma Suspect, OU - Glaucoma diagnosis and treatment options were discussed with patient. No treatment is required at the present time. Cornea thin, right VA ok, left VA borderline. Consider drops. Will continue to monitor IOP. Related to Glaucoma Suspect Glaucoma Suspect, OU - Glaucoma diagnosis and treatment options were discussed with patient. Will continue to monitor IOP.GDX is borderline, ry calling pt to come and be cked in 6 months Related to Glaucoma Suspect retinal tear, os Cataract, Nuclear Sc lerosis, OU - Discussed cataract diagnosis with the patient. Will continue to observe condition and symptoms. Related to Cataract, Nuclear Sclerosis Glaucomatous atrophy (cupping) of optic disc, OU - Will continue to observe condition and or symptoms. 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
--- OUTSIDE RECORDS SUMMARY | 2025-03-04 12:01 | XMS_ITS | Clinical Summary ---
Author Organization [facility] [address] Address [address] [place] [address] Care Team Providers Care Yeast Stacker Name Role Phone Bulmaro Saravia MD Unavailable [phone] Kulwinder Lu MD Unavailable [phone] Horacio Charlton MD Unavailable [phone] Antonio Deras MD Unavailable [phone] QianZenobia correia Unavailable [phone] Sarahi Taylor MD Unavailable Chanelle Khan MD Primary Care Provider Allergies Active Allergy Reactions Criticality Noted Date Comments Hydralazine Other (See comments) Low 10/24/2021 Tremors, shaking Hydrocodone Vomiting Low 02/21/2021 Milk Diarrhea Low 02/21/2021 Oxycodone Vomiting Low 09/05/2020 Medications cyanocobalamin (Vitamin B-12) 500 mcg tablet Take 1 tablet (500 mcg total) by mouth 3 (three) times a week Active cholecalcifero l (VITAMIN D-3) 25 mcg (1,000 unit) tablet Take 1 tablet (1,000 Units total) by mouth daily Active simethicone (GAS-X ORAL) Take by mouth daily Active acetaminophen 500 mg capsule Take by mouth every 4 (four) hours as needed for mild pain (pain scale 1-4) Active hydrocortisone 2.5 % cream 10/20/20 23 Active melatonin tablet Take 1 tablet (3 mg total) by mouth daily Active calcium citrate-vitami n D3 200 mg-6.25 mcg (250 unit) tablet 1 tablet Active levothyroxine (SYNTHROID) 50 mcg tablet Take 1 tablet (50 mcg total) by mouth daily 90 tablet 11 03/09/20 24 Active omeprazole (PriLOSEC) 20 mg capsuleIndicat ions:Gastroeso phageal reflux disease without esophagitis Take 1 capsule (20 mg total) by mouth daily 90 capsule 3 06/04/20 24 Active clobetasoL (TEMOVATE) 0.05 % ointment Apply finger tip worth (1-2g) to effected vulvar areas - PRN for flares; taper off after use over a week or 2 60 g 3 07/06/20 24 Active estradioL (ESTRACE) 0.01 % (0.1 mg/gram) vaginal creamIndicatio ns:Atrophy of Vulva,Postmeno pausal Urethral Atrophy USE fingertip worth (1-2g) to urethra, and vaginal opening 1-2 times per week for retirement maintenance 42.5 g 07/06/20 24 Active gabapentin (NEURONTIN) 100 mg capsule TAKE 2 CAPSULES BY MOUTH IN THE MORNING AND 1 CAPSULE IN THE EVENING. 270 capsule 2 09/15/20 24 Active Additional Information Patient taking differently: 100 mg oral 2 times daily, TAKE 1 CAPSULES BY MOUTH IN THE MORNING AND 2 CAPSULE IN THE EVENING., Reported on 02/03/2025 verapamil SR (CALAN SR) 120 mg CR tablet TAKE 1 TABLET BY MOUTH NIGHTLY 90 tablet 1 01/05/20 25 Active UNABLE TO FIND Take 500 each by mouth daily Biotin 500mg Active valsartan-hydr oCHLOROthiazid e (DIOVAN-HCT) 160-12.5 mg per tablet Take 1 tablet by mouth daily 90 tablet 3 02/12/20 25 Active hydroxychloroq uine (PLAQUENIL) 200 mg tablet TAKE 1 TABLET BY MOUTH EVERY DAY 90 tablet 1 02/15/20 25 Active valsartan-hydr oCHLOROthiazid e (DIOVAN-HCT) 160-12.5 mg per tablet TAKE 1 TABLET BY MOUTH EVERY DAY 90 tablet 3 02/09/20 24 025 Discontinued(R eorder) hydroxychloroq uine (PLAQUENIL) 200 mg tablet TAKE 1 TABLET BY MOUTH EVERY DAY 90 tablet 1 08/23/20 24 025 Discontinued Active Problems Problem Noted Date Diagnosed Date History of colon polyps 06/04/2024 Assessment & Plan (01/25/2025 3:00 PM CDT): Last colonoscopy by Dr. Rajput December 2022 with 8 mm polyp in the descending colon removed by cold forceps biopsies and internal hemorrhoids. -repeat colonoscopy December 2027 Assessment & Plan (06/04/2024 12:07 PM CDT): Last colonoscopy by Dr. Rajput December 2022 with 8 mm polyp in the descending colon removed by cold forceps biopsies and internal hemorrhoids. -repeat colonoscopy December 2027 Chronic fatigue 01/14/2024 Systolic murmur 07/09/2023 Assessment & Plan (09/21/2023 11:01 AM BANKING CONSULTANT): Seeing Dr. Saravia, cardiology who is managing/assessing Urethral caruncle 04/28/2023 Assessment & Plan (04/28/2023 5:50 PM CDT): -continue twice weekly pea sized amount to urethra Vaginal atrophy 04/28/2023 Assessment & Plan (04/28/2023 5:52 PM CDT): -continue twice weekly VET Rheumatoid arthritis involvi ng multiple sites with positive rheumatoid factor ([facility]/HCC) (NOLA Taylor 03/27/2023 Assessment & Plan (09/21/2023 11:13 AM BANKING CONSULTANT): Monitored and managed by rheumatology Dr. Taylor. Stable. Continue hydroxychloroquine and gabapentin Pelvic floor dysfunction 01/30/2023 Assessment & Plan (04/28/2023 5:49 PM CDT): Continue PFPT exercises Bilateral myofascial pain 01/30/2023 Urge incontinence of urine 07/30/2022 Assessment & Plan (04/28/2023 5:52 PM CDT): -95% improved with PFPT and lifestyle modifications Assessment & Plan (07/30/2022 6:38 PM CDT): Has some urethral prolapse. Refer to urogyn and follow up with net programmer analyst Hematuria 07/30/2022 Chronic right shoulder pain 07/02/2022 History of hypoglycemia 05/28/2022 Assessment & Plan (07/30/2022 5:26 PM CDT): Diet controlled. Insomnia 04/25/2022 Assessment & Plan (04/25/2022 2:24 PM CDT): Down to 50 mg from 75 mg of trazodone Lichen sclerosus et atrophicus 03/27/2022 Assessment & Plan (04/28/2023 5:52 PM CDT): -continue twice weekly clobetasol -follow up with RELAY TESTER HELPER Assessment & Plan (04/25/2022 2:33 PM CDT): Sees Dr. Bolanos and uses triamcinolone prn Mixed hyperlipidemia 09/05/2021 Assessment & Plan (09/21/2023 11:04 AM BANKING CONSULTANT): LDL 165 in 06/27/21. Since then LDL has come down with last checked 03/03/23 at 112 Assessment & Plan (03/27/2023 11:07 AM CDT): Controlled. Cont diet and thyroid meds Medication side effects 09/05/2021 ADHD 02/22/2021 Overview (08/23/2021): Did not tolerate strattera Assessment & Plan (09/21/2023 11:04 AM BANKING CONSULTANT): Stable managing without medication Assessment & Plan (04/25/2022 3:49 PM CDT): Not doing CBD any longer Feeling stable in this regard Assessment & Plan (10/24/2021 9:20 PM BANKING CONSULTANT): Did not start effexor Cont cbd Assessment & Plan (08/23/2021 8:30 AM CDT): Feel reasonable to try low dose effexor- side effects were discussed. Advised it may take several weeks to improve symptoms. Assessment & Plan (02/22/2021 11:29 AM CDT): Did not tolerate strattera Not med managed currently GERD (gastroesophageal reflux disease) Assessment & Plan (01/25/2025 3:00 PM CDT): Well controlled on daily omeprazole. -Continue medication at this time. -Educated on certain foods to avoid Assessment & Plan (06/04/2024 12:01 PM CDT): Chronic, well controlled with PPI daily. -continue omeprazole 20mg po daily -RECOMMENDATIONS given include: anti-reflux maneuvers, Avoid acidic foods like oranges and tomatoes., avoidance of spicy foods, avoid eating 3-4 hours before bed, elevation of the head of the bed, and weight loss Assessment & Plan (09/21/2023 11:03 AM BANKING CONSULTANT): Controlled/stable. Continue current meds and plan (Pepcid) Assessment & Plan (04/25/2022 2:23 PM CDT): Twice a day pepcid HTN (hypertension), benign 07/05/2020 Overview (10/24/2021): Cant use amlodopine dt leg swelling Hydralazine- tingling in legs Assessment & Plan (09/21/2023 11:02 AM BANKING CONSULTANT): Controlled/stable. Continue current meds and plan continue Valsartan/HCTZ 160/12.5 mg daily, verapamil 120 mg daily Assessment & Plan (03/27/2023 11:07 AM CDT): Controlled/stable. Continue current meds and plan Assessment & Plan (07/30/2022 6:38 PM CDT): Controlled. monitor Assessment & Plan (04/25/2022 3:48 PM CDT): On hctz-valsartan- doing well, would cont Assessment & Plan (10/24/2021 9:21 PM BANKING CONSULTANT): Controlled Stay off hydralazine Assessment & Plan (08/23/2021 8:34 AM CDT): Taking hydralazine- feels her b/l leg tingling is dt this, suggested starting b6. Cont christian Sees Chris Calle in a few weeks, if tingling doesn't improve by then, advise she discuss with him next options Already on ccb, HR low- cant start bb Assessment & Plan (04/26/2021 11:02 AM CDT): Reached out to cards regarding stopping arb For now, cont hydralazine and arb Wouldn't inc verapamil with baseline chronic miguelito No norvasc dt leg swelling Assessment & Plan (02/22/2021 11:28 AM CDT): Cont valsartan but increasing to BID for more optimal control Cont verapamil Acquired hypothyroidism 07/05/2020 Assessment & Plan (09/21/2023 11:03 AM BANKING CONSULTANT): Controlled/stable. Continue current meds and plan (levothyroxine) Assessment & Plan (03/27/2023 11:08 AM CDT): Controlled/stable. Continue current meds and plan Assessment & Plan (04/25/2022 3:48 PM CDT): On Synthroid labs were normal 06/27/2021 Assessment & Plan (08/23/2021 8:30 AM CDT): Cont synthroid, stable- 06/27/2021 Assessment & Plan (02/22/2021 11:28 AM CDT): Cont synthroid 50 mcg/da Age-related osteoporosis wit hout current pathological fracture (seeing Dr. Cruz) 05/07/2018 Overview (02/03/2025): Ms. ROMAN is here for follow-up on her bone health in the setting of primary hyperparathyroidism (determined to be likely parathyroid hyperplasia). She is currently on citracal 3 tablets per day and vitamin D 2500 IU per day. She received IV Reclast in 07/06 and 08/06 and 01/09. She's been diagnosed with RA and is seeing rheumatology. She currently does stay physically active in her activities of daily living. She's had no falls nor fractures. 06/2021 25-OH vit D 71 ng/ml. 06/2021 normal calcium and normal PTH. Calcium/creatinine ratio still elevated at 400 mg/g creatinine. Assessment & Plan (02/03/2025 2:56 PM CDT): Ms. 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 Her bone density has worsened in the hip and I'll redose her IV Reclast now. Assessment & Plan (01/22/2024 2:27 PM CDT): Ms. 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 Her bone density remains stable after 3 doses of IV Reclast and we'll hold off on additional therapy for now. Assessment & Plan (09/21/2023 11:13 AM BANKING CONSULTANT): Managed and monitored by Dr. Cruz. Getting infusions Assessment & Plan (08/01/2022 3:00 PM CDT): Ms. 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 Her bone density remains stable after 2 doses of IV Reclast. I'd like to redose her IV Reclast now since she's been off of therapy for 4 years. Assessment & Plan (08/23/2021 8:31 AM CDT): Recent dexa repeated-07/26/2021 Dr. Cruz does not wish to change anything as of now Assessment & Plan (07/26/2021 5:16 PM CDT): Ms. 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 Her bone density remains stable after 2 doses of IV Reclast. I'll hold off on additional therapy this year because her PTH levels are normalized at this time. Assessment & Plan (02/22/2021 11:29 AM CDT): Had reclast in '18 and ;17 Follows with Endo Cont vitamin d Assessment & Plan (07/13/2020 2:50 PM CDT): Ms. 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 Her bone density remains stable after 2 doses of IV Reclast. I'll hold off on additional therapy this year because her PTH levels are improving. Assessment & Plan (07/29/2019 11:53 AM CDT): Ms. 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 Her bone density has improved on the 2 doses of IV Reclast. I'll hold off on additional therapy this year. Assessment & Plan (05/07/2018 3:19 PM CDT): Ms. 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 Her bone density has improved on the IV Reclast and we'll dose it again this year. Hyperparathyroidism 05/07/2018 Overview (05/07/2018): She's had worsening bone density associated with parathyroid hyperplasia with normal serum calcium levels and normal urinary calcium. PTHs in the range of 100-200 over the past few years. Neck u/s and parathryoid SPECT scans didn't find any adenoma. Assessment & Plan (09/21/2023 11:02 AM BANKING CONSULTANT): Seeing bone specialist. Who is managing/monitoring. Hyperparathyroidism thought secondary to vitamin-D deficiency Assessment & Plan (08/23/2021 8:31 AM CDT): Seeing Dr. cruz- PTH is much better controlled for now Assessment & Plan (02/22/2021 11:28 AM CDT): Being monitored by Dr. Georges, no medication or surgery needed so far Assessment & Plan (05/07/2018 3:12 PM CDT): Medical treatment of her hyperparathyroidism with IV Reclast to be repeated again this year. Resolved Problems Problem Noted Date Diagnosed Date Resolved Date Right upper quadrant pain 06/04/2024 Assessment & Plan (06/04/2024 12:07 PM CDT): Patient has been having upper abdominal pain, mainly in the epigastric/RUQ region that started 10/2023. Has chronic GERD, PCP started omeprazole 12/2023 which seems to help. Abdominal pain occurs daily, no relation to meals or BM, worse with sitting. Differential includes GERD versus peptic ulcer disease versus gallstones versus musculoskeletal pain. -avoid NSAIDs -continue omeprazole 20 mg p.o. daily -schedule EGD -The risks (risks of bleeding, infection, perforation requiring surgery, missed polyps/cancer, dental injury, aspiration pneumonia, anesthesia complications such as drug reaction and cardiopulmonary complications including rare chance of ), benefits, and alternatives of the planned procedure were explained to the patient who understands and consents to having procedure done. Abnormal ultrasound of abdomen 06/04/2024 10/04/2024 Assessment & Plan (06/04/2024 12:07 PM CDT): Ultrasound December 2023 with 3 mm sludge ball versus polyp. -repeat abdominal ultrasound to assess further Right elbow pain 07/02/2022 10/27/2024 Encounter for Medicare annual wellness exam 08/23/2021 10/27/2024 Assessment & Plan (04/25/2022 3:49 PM CDT): Done today utd on vaccinations Flu shot gets every year natalia soliz has had 2 boosters Assessment & Plan (08/23/2021 8:32 AM CDT): utd on cscope, mammo, labwork Check flp 6 months rtc 6 months High fall risk Dyslipidemia 07/06/2020 09/05/2021 Assessment & Plan (08/23/2021 8:31 AM CDT): 6 months check again Phenomenal improvement on healthier low cholesterol diet- she wishes to continue diet management Assessment & Plan (04/26/2021 11:02 AM CDT): Check flp now Other chest pain 07/05/2020 10/27/2024 Encounters Date Type Department Care Team Description 02/15/2025 Orders Only [address] [place] [id number] Harika Cruz MD Age-related osteoporosis without current pathological fracture (seeing Dr. Cruz) (Primary Dx) 02/14/2025 Orders Only [id number] [place] [address] Dora Stewart RN 02/11/2025 Orders Only [address] [place] [address] Harika Cruz MD Age-related osteoporosis without current pathological fracture (Primary Dx) 02/10/[address] [place] [address] Harika Cruz MD 02/10/[address] [place] [address] Harika Cruz MD 02/10/2025 Orders Only [address] [place] [address] Harika Cruz MD 02/04/2025 12:01 PM CDT - 02/04/2025 11:59 PM CDT Hospital Encounter [facility] [address] [place] [address] Age-related osteoporosis without current pathological fracture (seeing Dr. Cruz) Discharge Disposition: Discharge to home or self care 02/04/2025 12:00 PM CDT Lab [facility] Outpatient Lab at [address] [address] HTN (hypertension), benign (Primary Dx) 02/04/[address] [place] [address] Harika Cruz MD Treatment Plan Update (New reclast ) 02/03/2025 2:40 PM CDT Office Visit [address] [place] [address] Harika Cruz MD Age-related osteoporosis without current pathological fracture (seeing Dr. Cruz) (Primary Dx) 02/03/2025 2:10 PM CDT Clinical Support [address] [place] [address] Age-related osteoporosis without current pathological fracture (Primary Dx) 01/25/2025 2:30 PM CDT Office Visit [facility] Gastroenterology at [address] [place] [address] Tisha Holm NP Gastroesophageal reflux disease without esophagitis (Primary Dx); History of colon polyps 01/18/2025 1:20 PM CDT Office Visit [facility] Rheumatology [address] [place] [address] 5th [place] [address] [place] [address] Sarahi Taylor MD Rheumatoid arthritis involving multiple sites with positive rheumatoid factor (HCC) (Primary Dx) from Last 3 Months Immunizations Immunization Administration Dates Next Due COVID-19 mRNA ([employer]) 0.3 m L (30 mcg) vaccine (12 years and up) 08/13/2023 Influenza, Quad, Adjuvantate d, Intramuscular 08/13/2023,07/25/2020 Influenza, Quadrivalent, Hig h Dose, Preservative Free, Intrr 08/13/2023,07/22/2022 Influenza, Quadrivalent, Spl it, Preservative Free, Intramuscular 07/13/2014 Influenza, Trivalent, Adjuva nted, Intramuscular 07/21/2024 Influenza, Trivalent, High D ose, Split, Preservative Free, Intramuscular 07/28/2019,08/01/2018,07/31/2018,08/10,09/08/2016,09/08/2015 Influenza, Trivalent, IM (MDV) 08/24/2013,2011,07/20/2012 Influenza, Unspecified 07/20/2022,07/31/2021 Moderna SARS-CoV-2 Monovalen t Vaccination (12+ YRS) 02/07/2022,01/04/2021,12/07/2020 Pneumococcal Conjugate PCV 13 05/11/2019 Pneumococcal Polysaccharide PPV23 05/10/2020 RSV Vaccine, Pref, Recombina nt, Subunit, Adjuvanted, PF, IM (Arexvy) 11/14/2023 Tdap 05/06/2019 ZOSTER Recombinant 07/15/2019,04/26/2019 Surgical History Surgery Date Site/Laterality Comments OVARIAN CYST REMOVAL 09/19/1982 - 10/19/1982 HEMORRHOID SURGERY 05/10/2017 TUBAL LIGATION HYSTEROSCOPY pt stated this is untrue COLONOSCOPY Medical History Medical History Date Comments Hypertension Arthritis Hypothyroidism Hypoglycemia Lichen sclerosus 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 GERD (gastroesophageal reflux disease) 0 Osteoporosis 2001 Hypercholesteremia Rheumatoid arthritis (HCC) diagn osed 11/22/22 Family History Medical History Relation Name Comments No Known Problems Brother No Known Problems Daughter Cancer Father Jr Diabetes Father Jr Heart attack Father Jr Hypertension Father Jr heart attack Father Jr Alzheimer's disease Mother Kerri Dementia Mother Kerri Memory loss Mother Kerri lost height Mother Kerri Breast cancer Neg Hx Broken bones Neg Hx Hip fracture Neg Hx Kyphosis Neg Hx Osteoporosis Neg Hx Ovarian cancer Neg Hx Scoliosis Neg Hx Relation Name Status Comments Brother Alive Daughter Alive Father Jr Mother Kerri Social History Tobacco Use Types Packs/Day Years Used Date Smoking Tobacco: Former Cigarettes Smokeless Tobacco: Never Tobacco Cessation:Counseling Given: Not Answered AUDIT-C Answer Date Recorded Q1: How often do you have a drink containing alc ohol? Monthly or less 07/26/2024 Q2: How many drinks containi ng alcohol do you have on a typical day when you are drinking? 1 or 2 07/26/2024 Q3: How often do you have si x or more drinks on one occasion? Never 07/26/2024 PHQ-2 Answer Date Recorded PHQ-2 Total Score (If total score is 3 or more points, staff should administer the PHQ-9) 0 10/27/2024 Personal Safety Answer Date Recorded Have you ever been in or are you currently in a harmful physical or emotional relationship or is someone making you feel afraid or unsafe? 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1 kg (106 lb) 02/03/2025 2:13 PM CDT Height 147.3 cm (4' 10 ) 02/03/2025 2:13 PM CDT Body Mass Index 22.15 02/03/2025 2:13 PM CDT Plan of Treatment Health Maintenance Due Date Last Done Comments Hepatitis B Screening 1968 Covid-19 Vaccine (8 - Modern a risk ) 12/17/2024 06/16/2024, 08/13/2023, 07/31/2022, Additional history exists Fall Risk Assessment 03/09/2025 03/09/2024, 09/08/2023, 01/14/2023, Additional history exists Well Visit 65+ 07/06/2025 07/06/2024, 08/21, 04/25/2022, Additional history exists Depression Screening 10/27/2025 10/27/2024, 03/09/2024, 12/31/2023, Additional history exists Osteoporosis Screening-Bone Density Scan 02/03/2027 02/03/2025, 01/22/2024, 08/01/2022, Additional history exists DTaP/Tdap/Td Vaccine (2 - Td or Tdap) 05/06/2029 05/06/2019 Zoster Vaccine Completed 07/15/2019, 04/26/2019 Pneumococcal vaccine 65+ Completed 05/10/2020, 04/20 Colon Cancer Screening-CT Colonography Discontinued 01/14/2023, 09/07/2012 Colon Cancer Screening-Colonoscopy Discontinued 01/14/2023, 09/07/2012 Colon Cancer Screening-DNA Stool Discontinued 01/15/20 23, 09/07/2012 Colon Cancer Screening-FIT Discontinued 01/14/2023, Colon Cancer Screening-FOBT Discontinued 01/14/2023, 1 11/07/2011 Colon Cancer Screening-Sigmoidoscopy Discontinued 01/14/2023, 09/07/2012 Colorectal Cancer Screening Discontinued Hepatitis C Screening Completed 03/03/2023 Influenza Vaccine Completed 07/21/2024, , 08/13/2023, Additional history exists Breast Cancer Screening-Mammogram Discontinued 07/29/2024, 07/29/2023, 06/13/2022, Additional history exists Medical Devices Implanted Type Area Picking Belt Operator Device Identifier Shelf Expiration Date Model / Serial / Lot [employer] Instinct Plus Endoscopic Clip Hemostatic [id number] - [id number] Implanted:Qty: 1 on 01/14/2023 by Ariela Rajput MD at [facility] [id number] 10/01/2025 [id number] / / [id number] Procedures Procedure Name Priority Date/Time Associated Diagnosis Comments EGFR Routine 02/04/2025 12:01 PM CDT Age-related osteoporosis without current pathological fracture (seeing Dr. Cruz) BASIC METABOLIC PANEL Routine 02/04/2025 12:01 PM CDT Age-related osteoporosis without current pathological fracture (seeing Dr. Cruz) PTH Routine 02/04/2025 12:01 PM CDT Age-related osteoporosis without current pathological fracture (seeing Dr. Cruz) VITAMIN D 25 HYDROXY Routine 02/04/2025 12:01 PM CDT Age-related osteoporosis without current pathological fracture (seeing Dr. Cruz) DEXA TBS AXIAL SKELETON BONE DENSITY 1 OR MORE SITES Schedule Routine, Read Routine (OP Routine) 02/03/2025 1:59 PM CDT Age-related osteoporosis without current pathological fracture SCREENING MAMMOGRAM BILATERAL W NADIR Schedule Routine, Read Routine (OP Routine) 07/29/2024 2:16 PM CDT Encounter for screening mammogram for malignant neoplasm of breast HEPATITIS C ANTIBODY Routine 03/03/2023 4:37 PM CDT Need for hepatitis C screening test COLONOSCOPY 01/14/2023 10:23 AM CDT from Last 3 Months or Most Recently Relevant to Health Maintenance Results * eGFR (02/04/2025 12:01 PM CDT) eGFR >90 >=60 mL/min/1. 73 m2 Comment: Interpretive Data Reference Interval Normal >/= 90 mL/min/1.73m2 Mildly decreased* 60 - 89 mL/min/1.73m2 Mildly to moderately decreased 45 - 59 mL/min/1.73m2 Moderately to severely decreased 30 - 44 mL/min/1.73m2 Severely decreased 15 - 29 mL/min/1.73m2 Kidney Failure < 15 mL/min/1.73m2 *Relative to young adult level Estimated glomerular filtration rate is determined by the 2020 CKD-EPI equation recommended by the National [employer] (A Unifying Approach to GFR Estimation: Recommendations of the NKF-ASK Task Force on Reassessing the Inclusion of Race in Diagnosing Kidney Disease, JASN 202). The CKD-EPI equation should not be used for patients with unstable renal function and has not been validated in children and those over 70. Current interpretive data was last reviewed 2021. Blood 02/04/2025 12:0 1 PM CDT 02/04/2025 8:47 PM CDT Harika Cruz MD LAB BLOOD ORDERABLES Final Result Performing Organization Address City/[facility] Co de Phone Number MILAGROSSHARI MORGAN [address] [place] [address] * Vitamin D 25 hydroxy (02/04/2025 12:01 PM CDT) Vitamin D 25-OH 56 30 - 80 ng/mL Blood 02/04/2025 12:0 1 PM CDT 02/04/2025 8:47 PM CDT Harika Cruz MD LAB BLOOD ORDERABLES Final Result Performing Organization Address City/[facility] Co de Phone Number JOANN [phone] [address] Department [place] [email or web address] [address] * (ABNORMAL) PTH (02/04/2025 12:01 PM CDT) PTH 156(H) 15 - 65 pg/mL Blood 02/04/2025 12:0 1 PM CDT 02/04/2025 8:47 PM CDT Harika Cruz MD LAB BLOOD ORDERABLES Final Result Performing Organization Address City/[facility] Co de Phone Number JOANN [phone] [address] Department [place] [address] * (ABNORMAL) Basic metabolic panel (02/04/2025 12:01 PM CDT) Sodium 132(L) 135 - 145 mmol/L Potassium, pl 4.3 3.3 - 4.9 mmol/L [facility] Chloride 94(L) 97 - 110 mmol/L [facility] CO2 28 22 - 32 mmol/L [facility] Anion gap 10 2 - 15 mmol/L [facility] BUN 12 6 - 25 mg/dL [facility] Creatinine 0.64 0.60 - 1.10 mg/dL [facility] Glucose 83 70 - 199 mg/dL [facility] Comment: Interpretive Data Fasting glucose >/= 126 mg/dl is diagnostic for diabetes. Fasting is defined as no caloric intake for at least 8 hours. Fasting glucose between 100 mg/dl to 125 mg/dl is diagnostic of prediabetes. In a patient with classic symptoms of hyperglycemia or hyperglycemic crisis, a random glucose >/= 200 mg/dl is diagnostic for diabetes. In the absence of unequivocal hyperglycemia, results should be confirmed by repeat testing. The classification and Diagnosis of Diabetes Diabetes Care 2021; 46: S19-S40. Current interpretive data was last revised 2022. Calcium 9.0 8.5 - 10.3 mg/dL [facility]ER Blood 02/04/2025 12:0 1 PM CDT 02/04/2025 8:47 PM CDT Harika Cruz MD LAB BLOOD ORDERABLES Final Result [facility] [address] [address] [place] [address] * Dexa TBS Axial Skeleton Bone Density 1 or more sites (02/03/2025 1:59 PM CDT) Anatomical Region Laterality Modality Wrist, Body N/A Radiographic Meghna ging Narrative 02/03/2025 3:15 PM CDT Patient Name: Shawnee Roman Date of : 1950 Date of scan: 02/03/2025 Bone mineral density was performed on a Hologic Discovery Densitometer. Based on machine cross-calibration and precision studies the least significant changes of this densitometer is 0.024 g/cm2 at the spine, 0.020 g/cm2 at the total proximal femur, and 0.014g/cm2 at the forearm. HISTORY: This is a 74 y.o. postmenopausal female with a history of hyperparathyroidism, osteoporosis, and thyroid disease. She reports that she has quit smoking. Her smoking use included cigarettes. She has never used smokeless tobacco. Currently on treatment with calcium, [id number]|2025-03-04 12:02:00|2025-03-04 12:01:00|XMS_ITS|NEETA BURNETT|External Medical Summaries|[id number]|" Encounter Summary Created on: March 04, 2025 Shawnee Roman : 1950 Sex: Female Author Organization [employer] [facility] Address 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 Gender Identity Not on file Sexual Orientation Not on file documented as of this encounter Plan of Treatment Upcoming Encounters Date Type Department Care Team (Late st Contact Info) Description 03/08/2025 3:30 PM CDT Office Visit [facility] Oncology and Hematology - [place] [address] [facility] [address] [place] [address] Antonio Deras MD [address] [facility] [address] [place] [address] documented as of this encounter Visit Diagnoses Diagnosis Other ovarian dysfunction- Primary documented in this encounter Care Teams Yeast Stacker Relationship Specialty Start Date End Date Jimmy Armando MD PCP - General Internal Medicine 03/06/23 documented as of this encounter "
--- OUTSIDE RECORDS SUMMARY | 2025-03-04 12:01 | XMS_ITS | Encounter Summary ---
Author Organization [facility] Address [address] [place] [address] Care Team Providers Care Torsion [place] Coiling Machine Setter Name Role Phone Jimmy Armando MD Primary Care Provider Encounter Details Date Type Department Care Team (Late st Contact Info) Description 09/01/2007 Outpatient [facility] [address] [place] [address]. 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 Gender Identity Not on file Sexual Orientation Not on file documented as of this encounter Plan of Treatment Upcoming Encounters Date Type Department Care Team (Late st Contact Info) Description 03/08/2025 3:30 PM CDT Office Visit [facility] Oncology and Hematology - [place] [address] [place] [address] [address] [place] [address] Antonio Deras MD [address] [facility] [address] [place] [address] documented as of this encounter Visit Diagnoses Not on filedocumented in this encounter Care Teams T[place]ion [place] Coiling Machine Setter Relationship Specialty Start Date End Date Jimmy Armando MD PCP - General Internal Medicine 03/06/23 documented as of this encounter
--- OUTSIDE RECORDS SUMMARY | 2025-03-04 12:01 | XMS_ITS | Encounter Summary ---
Author Organization [facility] Address [address] [place] [address] Care Team Providers Care Community Development Aide Name Role Phone Jimmy Armando MD Primary Care Provider Encounter Details Date Type Department Care Team (Late st Contact Info) Description 07/14/2008 Outpatient Historical [place] 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 Gender Identity Not on file Sexual Orientation Not on file documented as of this encounter Plan of Treatment Upcoming Encounters Date Type Department Care Team (Late Contact Info) Description 03/08/2025 3:30 PM CDT Office Visit [facility] Oncology and Hematology - [place] [address] [facility] [address] [place] [address] Antonio Deras MD [address] [facility] [address] [place] [address] documented as of this encounter Procedures Procedure Name Priority Date/Time Associated Diagnosis Comments US PELVIS + TRANSVAG NON OB Timed Study 07/15/2008 11:26 AM CDT documented in this encounter Results * US PELVIS + TRANSVAG NON OB (07/15/2008 11:26 AM CDT) Anatomical Region Laterality Modality Pelvis Other 07/15/2008 11:2 6 AM CDT Narrative 07/15/2008 12:31 PM CDT [facility] [address] [place], [place] [address] Admit Date: 07/14/2008 [facility] Sex: F Admit Prov: GAYLE MACIAS Date: 1950 Primary Care Prov: ADRIA KAUFFMAN CMRN: [id number] Room: [facility] SSN: [id number] IMAGING SERVICES Ordering Prov: N/A Accession Number: [id number] Interpretation EXAMINATION: ULTRASOUND OF THE PELVIS, 07/15/08 Clinical History: Possible soft tissue mass at endocervical canal. Findings: The uterus is normal in size and echotexture. Endocervical mass described on the prior study is not clearly seen on the current examination. Uterus measures 6.9 x 2.0 x 4.1 cm. Additional findings will be described at ultrasound endovaginal study. EXAMINATION: ULTRASOUND ENDOVAGINAL STUDY, 07/15/08 Clinical History: Possible endocervical mass. Findings: Transabdominal and endovaginal images were obtained. Examination of the endocervical region is limited, but within this limitation, no distinct mass is seen. The left ovary is normal in size and echotexture measuring 2.2 x 1.7 x 1.4 cm. Right ovary measures 1.4 x 1.2 x 0.7 cm. Endometrium measures 2 mm in thickness. Impression: Sonographically normal uterus and ovaries. No free pelvic fluid is seen. . Dictated by: Yazan STRAUSS 07/15/2008 12:13 Electronically signed by: Yazan STRAUSS 07/15/2008 12:30 Transcribed: 07/15/2008 12:28 LE Procedure Note Gordo Strauss MD - 07/15/2008 [place] [address] [place] [address] Admit Date: 07/14/2008 [facility] Sex: F Admit Prov: GAYLE MACIAS Date: 1950 Primary Care Prov: ADRIA KAUFFMAN CMRN: [id number] Room: [facility] SSN: [id number] IMAGING SERVICES Ordering Prov: N/A Interpretation EXAMINATION: ULTRASOUND OF THE PELVIS, 07/15/08 Clinical History: Possible soft tissue mass at endocervical canal. Findings: The uterus is normal in size and echotexture. Endocervical massdescribed on the prior study is not clearly seen on the current examination. Uterus measures 6.9 x 2.0 x 4.1 cm. Additional findings will bedescribed at ultrasound endovaginal study. EXAMINATION: ULTRASOUND ENDOVAGINAL STUDY, 07/15/08 Clinical History: Possible endocervical mass. Findings: Transabdominal and endovaginal images were obtained.Examination of the endocervical region is limited, but within this limitation,no distinct mass is seen. The left ovary is normal in size andechotexture measuring 2.2 x 1.7 x 1.4 cm. Right ovary measures 1.4 x 1.2 x 0.7cm. Endometrium measures 2 mm in thickness. Impression: Sonographically normal uterus and ovaries. No free pelvic fluid isseen. . Dictated by: Yazan STRAUSS 07/15/2008 12:13 Electronically signed by: Yazan STRAUSS 07/15/2008 12:30 Transcribed: 07/15/2008 12:28 LE us Gayle Macias MD US ORDERABLES Final Resul t documented in this encounter Visit Diagnoses Diagnosis Abdominal pain, other specified site documented in this encounter Care Teams Community Development Aide Relationship Specialty Start Date End Date Jimmy Armando MD PCP - General Internal Medicine 03/06/23 documented as of this encounter
--- OUTSIDE RECORDS SUMMARY | 2025-03-04 12:01 | XMS_ITS | Encounter Summary ---
Author Organization [facility] Address [address] [place] [address] Care Team Providers Care Forklift Truck Operator Name Role Phone Jimmy Armando MD Primary Care Provider [phone] Encounter Details Date Type Department Care Team (Latest Contact Info) Description 10/29/2007 Outpatient Historical [facility] Jacobs, Grant Zapata MD [address] [place] [address] Encounter for Long-Term (Current) Use of Other Medications Social History Tobacco Use Types Packs/Day Years Used Date Smoking Tobacco: Never Assessed Comments Unknown Sex and Gender Information Value Date Recorded Sex Assigned at Not on file Legal Sex Female 4:53 AM BULK SUGAR HANDLER Gender Identity Not on file Sexual Orientation Not on file documented as of this encounter Plan of Treatment Upcoming Encounters Date Type Department Care Team (Late st Contact Info) Description 03/08/2025 3:30 PM CDT Office Visit [facility] Oncology and Hematology - [place] [address] [facility] [address] [place] [address] Antonio Deras MD [address] [facility] [address] [place] [address] documented as of this encounter Procedures Procedure Name Priority Date/Time Associated Diagnosis Comments CBC WITH DIFFERENTIAL Routine 10/29/2007 12:14 PM BULK SUGAR HANDLER CBC WITH DIFFERENTIAL Routine 10/29/2007 12:14 PM BULK SUGAR HANDLER BUN Routine 10/29/2007 12:14 PM BULK SUGAR HANDLER CREATININE Routine 10/29/2007 12:14 PM BULK SUGAR HANDLER HEPATIC FUNCTION PANEL Routine 10/29/2007 12:14 PM BULK SUGAR HANDLER documented in this encounter Results * CBC WITH DIFFERENTIAL (10/29/2007 12:14 PM BULK SUGAR HANDLER) NEUTROPHILS 69 45 - 70 % INTERFAC E SYSTEM LYMPHOCYTES 25 16 - 45 % INTERFAC E SYSTEM MONOCYTES 5 3 - 13 % INTERFACE SYSTEM EOSINOPHILS 0 0 - 7 % INTERFAC E SYSTEM BASOPHILS 0 0 - 2 % INTERFACE SYSTEM NEUTROPHIL ABSOLUTE 4.19 1.90 - 7.00 K/uL INTERFACE SYSTEM LYMPHOCYTE ABSOLUTE 1.51 0.70 - 4.50 K/uL INTERFACE SYSTEM MONOCYTE ABSOLUTE 0.30 0.10 - 1.30 K/uL INTERFACE SYSTEM EOSINOPHIL ABSOLUTE 0.02 0.00 - 0.70 K/uL INTERFACE SYSTEM BASOPHILS ABSOLUTE 0.02 0.00 - 0.20 K/uL INTERFACE SYSTEM 10/29/2007 12:1 4 PM BULK SUGAR HANDLER us Grant Jacobs MD HEMATOLOGY ORDERABLES Edit ed INTERFACE SYSTEM Refer to clinic/hospital department * (ABNORMAL) CBC WITH DIFFERENTIAL (10/29/2007 12:14 PM BULK SUGAR HANDLER) WBC 6.0 4.0 - 9.8 K/uL INTERFACE SYSTEM RBC 4.34 3.90 - 4.90 M/uL INTERFACE SYSTEM HEMOGLOBIN 14.2 11.8 - 14.8 g/dL INTERFACE SYSTEM HEMATOCRIT 41.2 35.5 - 44.0 % INTERFACE SYSTEM MCV 94.9 82.0 - 99.0 fL INTERFACE SYSTEM MCH 32.7(H) 27.2 - 32.6 pg INTERFACE SYSTEM MCHC 34.5 31.5 - 35.5 % INTERFACE SYSTEM RDW 12.6 11.5 - 14.5 % INTERFACE SYSTEM RDW-STDEV 43.6 37.1 - 48.7 fL INTERFACE SYSTEM PLATELETS 200 140 - 350 K/uL INTERFACE SYSTEM MPV 10.7 9.3 - 12.4 fL INTERFACE SYSTEM 10/29/2007 12:1 4 PM BULK SUGAR HANDLER Grant Jacobs MD HEMATOLOGY ORDERABLES Edit ed Performing Organization Address [facility] Phone Number INTERFACE SYSTEM Refer to clinic/hospital department * CREATININE (10/29/2007 12:14 PM BULK SUGAR HANDLER) CREATININE 0.60 0.51 - 0.95 mg/dL INTERFACE SYSTEM 10/29/2007 12:1 4 PM BULK SUGAR HANDLER Grant Jacobs MD CHEMISTRY ORDERABLES Edite d Performing Organization Address [facility] Phone Number INTERFACE SYSTEM Refer to clinic/hospital department * BUN (10/29/2007 12:14 PM BULK SUGAR HANDLER) BUN 12 6 - 20 mg/dL INTERFACE SYSTEM 10/29/2007 12:1 4 PM BULK SUGAR HANDLER Grant Jacobs MD CHEMISTRY ORDERABLES Edite d Performing Organization Address [facility] Phone Number INTERFACE SYSTEM Refer to clinic/hospital department * HEPATIC FUNCTION PANEL (10/29/2007 12:14 PM BULK SUGAR HANDLER) ALKALINE PHOSPHATASE 64 35 - 104 U/L INTERFACE SYSTEM AST 21 12 - 32 U/L INTERFACE SYSTEM ALT 14 0 - 31 U/L INTERFACE SYSTEM TOTAL PROTEIN 7.0 6.3 - 8.6 g/dL INTERFACE SYSTEM ALBUMIN 4.1 3.4 - 4.8 g/dL INTERFACE SYSTEM BILIRUBIN TOTAL 0.7 0.2 - 1.0 mg/dL INTERFACE SYSTEM BILIRUBIN DIRECT 0.1 0.0 - 0.3 mg/dL INTERFACE SYSTEM 10/29/2007 12:1 4 PM BULK SUGAR HANDLER Grant Jacobs MD CHEMISTRY ORDERABLES Edite d Performing Organization Address [facility] Phone Number INTERFACE SYSTEM Refer to clinic/hospital department documented in this encounter Visit Diagnoses Diagnosis Encounter for long-term (current) use of other medications documented in this encounter Care Teams Forklift Truck Operator Relationship Specialty Start Date End Date Jimmy Armando MD PCP - General Internal Medicine 03/06/23 documented as of this encounter
--- OUTSIDE RECORDS SUMMARY | 2025-03-04 12:01 | XMS_ITS | Encounter Summary ---
Author Organization [facility] Address [address] [place] [address] Care Team Providers Care Card Boxer Name Role Phone Jimmy Armando MD Primary Care Provider [phone] Encounter Details Date Type Department Care Team (Late st Contact Info) Description 08/19/2008 Outpatient Historical [facility] AUDIOLOGY Penny Kan MD [address] [facility] [address] [place] [address] Social History Tobacco Use Types Packs/Day Years Used Date Smoking Tobacco: Never Assessed Comments No Sex and Gender Information Value Date Recorded Sex Assigned at Not on file Legal Sex Female 4:53 AM AUDIO EXPERIENCE EXPERT Gender Identity Not on file Sexual Orientation Not on file documented as of this encounter Plan of Treatment Upcoming Encounters Date Type Department Care Team (Late st Contact Info) Description 03/08/2025 3:30 PM CDT Office Visit [facility] Oncology and Hematology - [place] [address] [facility] [address] [place] [address] Antonio Deras MD [address] [facility] [address] [place] [address] documented as of this encounter Visit Diagnoses Not on filedocumented in this encounter Care Teams Card Boxer Relationship Specialty Start Date End Date Jimmy Armando MD PCP - General Internal Medicine 03/06/23 documented as of this encounter
--- OUTSIDE RECORDS SUMMARY | 2025-03-04 12:01 | XMS_ITS | Encounter Summary ---
Author Organization [facility] Address [address] [place] [address] Care Team Providers Care Dry Sander Name Role Phone Jimmy Armando MD Primary Care Provider [phone] Encounter Details Date Type Department Care Team (Latest Contact Info) Description 01/01/2008 Outpatient Historical HIS [facility] Jacobs, Grant Zapata MD [address] [place] [address] Encounter for Long-Term (Current) Use of Other Medications Social History Tobacco Use Types Packs/Day Years Used Date Smoking Tobacco: Never Assessed Comments Unknown Sex and Gender Information Value Date Recorded Sex Assigned at Not on file Legal Sex Female 4:53 AM SOCIAL SERVICES COORDINATOR Gender Identity Not on file Sexual Orientation Not on file documented as of this encounter Plan of Treatment Upcoming Encounters Date Type Department Care Team (Late st Contact Info) Description 03/08/2025 3:30 PM CDT Office Visit [facility] Oncology and Hematology - [place] [address] [facility] [address] [place] [address] Antonio Deras MD [address] [facility] [address] [place] [address] documented as of this encounter Procedures Procedure Name Priority Date/Time Associated Diagnosis Comments CBC WITH DIFFERENTIAL Routine 01/01/2008 12:10 PM CDT BUN Routine 01/01/2008 12:10 PM CDT CREATININE Routine 01/01/2008 12:10 PM CDT HEPATIC FUNCTION PANEL Routine 01/01/2008 12:10 PM CDT documented in this encounter Results * HEPATIC FUNCTION PANEL (01/01/2008 12:10 PM CDT) TOTAL PROTEIN 7.2 6.3 - 8.6 g/dL [facility] BILIRUBIN DIRECT 0.1 0.0 - 0.3 mg/dL [facility] AST 19 12 - 32 U/L [facility] ALBUMIN 4.3 3.4 - 4.8 g/dL [facility] ALT 15 0 - 31 U/L [facility] BILIRUBIN TOTAL 0.5 0.2 - 1.0 mg/dL [facility] ALKALINE PHOSPHATASE 71 35 - 104 U/L [facility] Blood specimen (specimen) 01/01/2008 12:10 PM CDT 01/01/2008 12:41 PM CDT us Grant Jacobs MD CHEMISTRY ORDERABLES Final Result [facility] [address] [facility] [place] [address] * CREATININE (01/01/2008 12:10 PM CDT) CREATININE 0.70 0.51 - 0.95 mg/dL [facility] GFR, >60 >=60 mL/min/1.7 sq meter [facility] GFR >60 >=60 mL/min/1.7 sq meter [facility] Comment: Estimated GFR rate interpretative information for both Americans and non- Americans is available on the [facility] Intranet at: [email or web address] Select: Lab Policies and Procedures Select: Reference Ranges - GFR Blood specimen (specimen) 01/01/2008 12:10 PM CDT 01/01/2008 12:41 PM CDT Grant Jacobs MD CHEMISTRY ORDERABLES Edite d [facility] [address] [facility] [address] [place] [address] * (ABNORMAL) CBC WITH DIFFERENTIAL (01/01/2008 12:10 PM CDT) MCV 96.4 82.0 - 99.0 fL [facility] PLATELETS 209 140 - 350 K/uL [facility] HEMOGLOBIN 15.0(H) 11.8 - 14.8 g/dL [facility] RDW 12.9 11.5 - 14.5 % [facility] WBC 6.1 4.0 - 9.8 K/uL [facility] MCH 33.3(H) 27.2 - 32.6 pg [facility] MPV 11.0 9.3 - 12.4 fL [facility] HEMATOCRIT 43.4 35.5 - 44.0 % [facility] RDW-STDEV 44.7 37.1 - 48.7 fL [facility] RBC 4.50 3.90 - 4.90 M/uL [facility] MCHC 34.6 31.5 - 35.5 % [facility] NEUTROPHILS 65 45 - 70 % [facility] NEUTROPHIL ABSOLUTE 3.92 1.90 - 7.00 K/uL [facility] EOSINOPHILS 1 0 - 7 % [facility] EOSINOPHIL ABSOLUTE 0.04 0.00 - 0.70 K/uL [facility] LYMPHOCYTES 26 16 - 45 % [facility] LYMPHOCYTE ABSOLUTE 1.55 0.70 - 4.50 K/uL [facility] BASOPHILS 0 0 - 2 % [facility] BASOPHILS ABSOLUTE 0.02 0.00 - 0.20 K/uL [facility] MONOCYTES 9 3 - 13 % [facility] MONOCYTE ABSOLUTE 0.55 0.10 - 1.30 K/uL [facility] Blood specimen (specimen) 01/01/2008 12:10 PM CDT 01/01/2008 12:41 PM CDT Grant Jacobs MD HEMATOLOGY ORDERABLES Edit ed Performing Organization Address City/[facility] de Phone Number INTERFACE SYSTEM Refer to clinic/hospital department [facility] [address] [place] [address] * BUN (01/01/2008 12:10 PM CDT) BUN 15 6 - 20 mg/dL [facility] Blood specimen (specimen) 01/01/2008 12:10 PM CDT 01/01/2008 12:41 PM CDT Grant Jacobs MD CHEMISTRY ORDERABLES Final Result Performing Organization Address [facility] de Phone Number [facility] [address] [place] [address] documented in this encounter Visit Diagnoses Diagnosis Encounter for long-term (current) use of other medications documented in this encounter Care Teams Dry Sander Relationship Specialty Start Date End Date Jimmy Armando MD PCP - General Internal Medicine 03/06/23 documented as of this encounter
--- OUTSIDE RECORDS SUMMARY | 2025-03-04 12:01 | XMS_ITS | Clinical Summary ---
Author Organization [facility] Address [address] [place] [address] Phone Care Team Providers Care Social Media Content Specialist Name Role Phone Jimmy Armando MD Primary Care Provider [phone] Allergies Active Allergy Reactions Criticality Noted Date Comments Hydralazine Other (See Comments) Low 10/24/2021 Tremors, shaking Hydrocodone Nausea and Vomiting Low 02/21/2021 Milk Diarrhea Low 02/21/2021 Oxycodone Nausea and Vomiting Low 09/05/2020 Medications levothyroxine 50 mcg tablet TAKE 1 TABLET BY MOUTH EVERY DAY 1 8 Active verapamiL (CALAN SR) 120 mg Sustained Release tablet TAKE 1 TABLET BY MOUTH EVERY DAY IN THE EVENING 0 Active calcium citrate/vitamin D3 (CITRACAL-D3 PETITES ORAL) Active cyanocobalamin (Vitamin B-12) 500 mcg tablet Activ e valsartan (DIOVAN) 80 mg tablet Take 240 mg by mouth daily. 2 Active hydrOXYchloroQU INE (PLAQUENIL) 200 mg tablet Take 200 mg by mouth daily. 3 Active estradioL (ESTRACE) 0.01% (0.1 mg/g) vaginal cream USE 1/4 (ONE-FOURTH) OF APPLICATOR NIGHTLY FOR 2 WEEKS, THEN TWICE WEEKLY AFTER THAT 3 Active clobetasoL (TEMOVATE) 0.05 % Ointment Apply to affected area 2 times daily. 3 Active valsartan-hydro CHLOROthiazide (DIOVAN HCT) 160-12.5 mg tablet Take 1 Tablet by mouth daily. 3 Active diphenhydrAMINE (BENADRYL) 12.5 mg/5 mL Elixir Take 12.5 mg by mouth every 6 hours as needed for Allergies. Active gabapentin (NEURONTIN) 100 mg capsule Take 100 mg by mouth 3 times daily. Two pills Am 1 IN pm Active Active Problems Problem Noted Date Diagnosed Date Macrocytosis without anemia 06/14/2020 Hypoglycemia 12/15/2013 Overview (12/15/2013): Non diabetic; Osteoporosis 06/16/2013 Hemorrhoid 06/16/2013 Hyperlipidemia 01/11/2011 Hypothyroidism 11/29/2008 Hypertension 11/29/2008 Pain in joint, multiple sites 11/29/2008 Insomnia 11/29/2008 Resolved Problems Problem Noted Date Diagnosed Date Resolved Date Rectal bleeding 09/07/2012 06/16/2013 Encounters Date Type Department Care Team Description 01/05/2025 External Device Data STL ABSTRACTION Provider, Abstract 12/25/2024 External Device Data STL ABSTRACTION Provider, Abstract 12/24/2024 External Device Data STL ABSTRACTION Provider, Abstract 12/22/2024 External Device Data STL ABSTRACTION Provider, Abstract 12/08/2024 External Device Data STL ABSTRACTION Provider, Abstract from Last 3 Months Immunizations Immunization Administration Dates Next Due Influenza Seasonal Unspecifi ed Formulation IM 08/24/2013,07/30/2012,07/20/2012 Influenza Vaccine Quad Split 3+ Yrs Pf Im 2013 Family History Medical History Relation Name Comments Glaucoma Brother Hypertension Brother Diabetes Father High Cholesterol Father Hypertension Father Lung Cancer Father Dementia Mother Breast Cancer Neg Hx Cancer Neg Hx Colon Cancer Neg Hx Ovarian Cancer Neg Hx Relation Name Status Comments Brother Alive Father Mother Social History Tobacco Use Types Packs/Day Years Used Date Smoking Tobacco: Former Cigarettes Q uit: 10/20/1969 Smokeless Tobacco: Never Tobacco Cessation:Counseling Given: Not Answered Alcohol Use Standard Drinks/Week Comments No 0 (1 standard drink = 0.6 oz pur e alcohol) Comments No Sex and Gender Information Value Date Recorded Sex Assigned at Not on file 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 Gender Identity Not on file Sexual Orientation Not on file Occupation Industry Job Start Date Job End Date Not on file Not on file Not on file Not on file Last Filed Vital Signs Vital Sign Reading Time Taken Comments Blood Pressure 116/77 03/08/2024 3:24 PM CDT Pulse 68 03/08/2024 3:24 PM CDT Temperature 35.8 C (96.5 F) 03/08/2024 3:24 PM CDT Respiratory Rate 16 03/08/2024 3:24 PM CDT Oxygen Saturation 97% 03/08/2024 3:24 PM CDT Inhaled Oxygen Concentration - - Weight 48.9 kg (107 lb 12.8 oz) 03/08/2024 3:24 PM CDT Height 149.9 cm (4' 11 ) 03/06/2022 3:37 PM CDT Body Mass Index 21.77 03/06/2022 3:37 PM CDT Plan of Treatment Upcoming Encounters Date Type Department Care Team (Late st Contact Info) Description 03/08/2025 3:30 PM CDT Office Visit [facility] Oncology and Hematology - [place] [address] [facility] [address] [place] [address] Antonio Deras MD [address] [facility] [address] [place] [address] Health Maintenance Due Date Last Done Comments RSV VACCINE (60+ or ) (1 - 1-dose 75+ series) 2023 INFLUENZA VACCINE (#1) 2024 0, 07/28/2019, 08/01/2018, Additional history exists OSTEOPOROSIS SCREENING 08/01/2027 2, 08/01/2022, 07/26/2021, Additional history exists DTAP/TDAP/TD VACCINES (2 - T d or Tdap) 05/06/2029 05/06/2019 ZOSTER VACCINE Completed 07/15/2019, 04/26/2019 PNEUMOCOCCAL VACCINE 50+ YEARS Completed 05/10/2020 , 05/11/2019 COLORECTAL SCREENING Discontinued 01/14/2023, 01/14/2023, 01/14/2023, Additional history exists Colorectal Cancer Screening Discontinued FIT-DNA Q 3 years Discontinued FIT/FOBT Q 1 year Discontinued Flex Sig/CT Colonography Q 5 years Discontinued Medical Devices Implanted Type Area Cushion Assembler Device Identifier Shelf Expiration Date Model / Serial / Lot Hemostatic Gelfoam Spng 12-7mm [id number] - [facility] [place] - [id number] Implanted:Qty : 1 on 05/08/2017 by Andreia Flores MD at [facility] Hemostatic N/A: Perianal PFIZER- PHARM [id number] 09/18/2019 [id number] / / [id number] Procedures Procedure Name Priority Date/Time Associated Diagnosis Comments XR DEXA BONE DENSITY AXIAL 1 OR MORE SITES Routine 07/12/2013 11:15 AM CDT Symptomatic menopausal or female climacteric states from Last 3 Months or Most Recently Relevant to Health Maintenance Results * XR DEXA BONE DENSITY AXIAL 1 OR MORE SITES (07/12/2013 11:15 AM CDT) Anatomical Region Laterality Modality Digital Radiogra phy 07/12/2013 11:0 6 AM CDT Narrative 07/12/2013 11:37 AM CDT Examination: Bone Density Study (DXA) Clinical History: 62 year-old postmenopausal female. Compared to the prior bone density performed 05/29/2011 Findings: Lumbar Spine (L1-L4) T-score -1.0 1.06 g/sq cm Prior: 1.07 g/sq cm -0.5 % change Left femoral neck T-score -2.4 0.70 g/sq cm Prior: 0.73 g/sq cm -4.0 % change Right femoral neck T-score -2.5 0.69 g/sq cm Prior: 0.72 g/sq cm -3.9 % change IMPRESSION Abnormal with osteoporotic right femoral neck bone mineral density. Comments: The left femoral neck is within one quarter standard deviation of osteoporosis. Detailed report to follow. Dictated by Dr. Robert Heard MD Dictated from Location 1. Procedure Note Robert Heard MD - 07/12/2013 Examination: Bone Density Study (DXA) Clinical History: 62 year-old postmenopausal female. Compared to the prior bone density performed 05/29/2011 Findings: Lumbar Spine (L1-L4) T-score -1.0 1.06 g/sq cm Prior: 1.07 g/sq cm -0.5 % change Left femoral neck T-score -2.4 0.70 g/sq cm Prior: 0.73 g/sq cm -4.0 % change Right femoral neck T-score -2.5 0.69 g/sq cm Prior: 0.72 g/sq cm -3.9 % change IMPRESSION Abnormal with osteoporotic right femoral neck bone mineral density. Comments: The left femoral neck is within one quarter standard deviation of osteoporosis. Detailed report to follow. Dictated by Dr. Robert Heard MD Dictated from Location 1. Omaiar Montgomery MD DIAGNOSTIC IMAGING ORDERABLES F inal Result from Last 3 Months or Most Recently Relevant to Health Maintenance Insurance MEDICARE PART A AND B [facility] RX [employer] RX Member Subscriber Plan / Payer (Ef fective 2014-Present) Name:Oralia العراقي Relation to Subscriber:Self Name:Oralia العراقي Payer ID:Not on file Group ID:Not on file Type:RX Medicare Part D Address: [place] MEDICARE PART A AND B [facility] Advance Directives For more information, please contact: [phone] Documents on File Type Date Recorded Patient Dry Starch Supervisor Expl anation Advance Directive POA 05/08/2017 6:44 AM * Full Code (Latest Code Status on File) Date Activated Date Inactivated Comments 05/08/2017 8:10 AM 05/08/2017 6:23 PM * Full Code Date Activated Date Inactivated Comments 09/07/2012 7:42 AM 09/07/2012 12:25 PM Care Teams Social Media Content Specialist Relationship Specialty Start Date End Date Jimmy Armando MD PCP - General Internal Medicine 03/06/23
--- OUTSIDE RECORDS SUMMARY | 2025-03-04 12:01 | XMS_ITS | Encounter Summary ---
Author Organization [facility] Address [address] [place] [address] Phone Care Team Providers Care Child Development Teacher Name Role Phone Bulmaro Saravia MD Unavailable [phone] Kulwinder Lu MD Unavailable [phone] Horacio Charlton MD Unavailable [phone] Antonio Deras MD Unavailable [phone] Zenobia Laughlin DO Unavailable [phone] Sarahi Taylor MD Unavailable Chanelle Khan MD Primary Care Provider Encounter Details Date Type Department Care Team (Late st Contact Info) Description 02/10/2025 Treatment [facility] [address] [facility] Medical Office Building [address] [place] [address] Harika Bishop MD [address] [place] [address] [address] [place] [address] Social History Tobacco Use Types Packs/Day Years Used Date Smoking Tobacco: Former Cigarettes Smokeless Tobacco: Never AUDIT-C Answer Date Recorded Q1: How often [...] on file 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 Gender Identity Female 07/15/2019 1:13 PM CDT Sexual Orientation Not on file 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 Not on file Not on file N ot on file documented as of this encounter Plan of Treatment Not on file documented as of this encounter Visit Diagnoses Not on filedocumented in this encounter Care Teams Child Development Teacher Relationship Specialty Start Date End Date Chanelle Khan MD [address] [place] [address] PCP - General Internal Medicine 06/09/24 Bulmaro Saravia MD Consulting Physician Cardiology 09/21/23 Kulwinder Lu MD Referring Physician Dermatology 09/21/23 Horacio Charlton MD Consulting Physician Obstetrics and Gynecology 09/21/23 Antonio Deras MD [address] [place] [phone] Referring Physician Hematology 09/21/23 Zenobia Laughlin DO [address] [facility] [address] [place] [address] Consulting Physician Orthopedic Surgery 09/21/23 Sarahi Taylor MD [address] [facility] [address] [place] [address] Consulting Physician Rheumatology 09/21/23 DR. MEGAN DANG 09/19/23 documented as of this encounter
--- OUTSIDE RECORDS SUMMARY | 2025-03-04 12:01 | XMS_ITS | Encounter Summary ---
Author Organization [facility] Address [address] [place] [address] Care Team Providers Care Fireworks Maker Name Role Phone Jimmy Armando MD Primary Care Provider [phone] Encounter Details Date Type Department Care Team (Latest Contact Info) Description 10/24/2008 Outpatient Historical HIS [facility] Jacobs, Grant Zapata MD [address] [place] [address] Encounter for Long-Term (Current) Use of Other Medications Social History Tobacco Use Types Packs/Day Years Used Date Smoking Tobacco: Never Assessed Comments No Sex and Gender Information Value Date Recorded Sex Assigned at Not on file Legal Sex Female 4:53 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 Gender Identity Not on file Sexual Orientation Not on file documented as of this encounter Plan of Treatment Upcoming Encounters Date Type Department Care Team (Late st Contact Info) Description 03/08/2025 3:30 PM CDT Office Visit [facility] Oncology and Hematology - [place] [address] [facility] [address] [place] [address] Antonio Deras MD [address] [facility] [address] [place] [address] documented as of this encounter Procedures Procedure Name Priority Date/Time Associated Diagnosis Comments HEPATIC FUNCTION PANEL Routine 10/24/2008 12:22 PM ACCOUNTS SUPERVISOR documented in this encounter Results * (ABNORMAL) HEPATIC FUNCTION PANEL (10/24/2008 12:22 PM ACCOUNTS SUPERVISOR) BILIRUBIN TOTAL 0.4 0.2 - 1.0 mg/dL [facility] ALKALINE PHOSPHATASE 107(H) 35 - 104 U/L [facility] TOTAL PROTEIN 6.4 6.3 - 8.6 g/dL [facility] BILIRUBIN DIRECT 0.1 0.0 - 0.3 mg/dL [facility] AST 25 12 - 32 U/L [facility] ALBUMIN 4.0 3.4 - 4.8 g/dL [facility] ALT 27 0 - 31 U/L [facility] Blood specimen (specimen) 10/24/2008 12:22 PM ACCOUNTS SUPERVISOR 10/24/2008 12:48 PM ACCOUNTS SUPERVISOR Grant Jacobs MD CHEMISTRY ORDERABLES Final Result INTERFACE SYSTEM Refer to clinic/hospital department [facility] CLIA# [id number] [address] [place] [address] documented in this encounter Visit Diagnoses Diagnosis Encounter for long-term (current) use of other medications documented in this encounter Care Teams Fireworks Maker Relationship Specialty Start Date End Date Jimmy Armando MD PCP - General Internal Medicine 03/06/23 documented as of this encounter
--- OUTSIDE RECORDS SUMMARY | 2025-03-04 12:01 | XMS_ITS | Encounter Summary ---
Author Organization [facility] Address [address] [place] [address] Care Team Providers Care Alliances Consultant Name Role Phone iJmmy Armando MD Primary Care Provider [phone] Encounter Details Date Type Department Care Team (Late st Contact Info) Description 04/07/2008 Outpatient Historical HIS [facility] Penny Kan MD [address] [facility] [address] [place] [address] Unspecified Hearing Loss; Central Hearing Loss Social History Tobacco Use Types Packs/Day Years Used Date Smoking Tobacco: Never Assessed Comments Unknown Sex and Gender Information Value Date Recorded Sex Assigned at Not on file 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 Female 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 Gender Identity Not on file Sexual Orientation Not on file documented as of this encounter Plan of Treatment Upcoming Encounters Date Type Department Care Team (Late st Contact Info) Description 03/08/2025 3:30 PM CDT Office Visit [facility] Oncology and Hematology - [place] [address] [facility] [address] [place] [address] Antonio Deras MD [address] [facility] [address] [place] [address] documented as of this encounter Visit Diagnoses Diagnosis Unspecified hearing loss Central hearing loss documented in this encounter Care Teams Alliances Consultant Relationship Specialty Start Date End Date Jimmy Armando MD PCP - General Internal Medicine 03/06/23 documented as of this encounter
--- OUTSIDE RECORDS SUMMARY | 2025-03-04 12:01 | XMS_ITS | Encounter Summary ---
Author Organization [facility] Address [address] [place] [address] Care Team Providers Care Teletypewriter Operator Name Role Phone Jimmy Armando MD Primary Care Provider [phone] Encounter Details Date Type Department Care Team (Latest Contact Info) Description 04/15/2008 Outpatient Historical HIS [facility] [address] [place] [address] Other Screening Mammogram Social History Tobacco Use Types Packs/Day Years Used Date Smoking Tobacco: Never Assessed Comments Unknown Sex and Gender Information Value Date Recorded Sex Assigned at Not on file 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 Gender Identity Not on file Sexual Orientation Not on file documented as of this encounter Plan of Treatment Upcoming Encounters Date Type Department Care Team (Late st Contact Info) Description 03/08/2025 3:30 PM CDT Office Visit [facility] Oncology and Hematology - [place] [address] [facility] [address] [place] [address] Antonio Deras MD [address] [facility] [address] [place] [address] documented as of this encounter Procedures Procedure Name Priority Date/Time Associated Diagnosis Comments MAMMO SCREEN BILAT W OR WO CAD Routine 04/15/2008 12:17 PM CDT documented in this encounter Results * MAMMO DIGITAL SCREEN BILAT (04/15/2008 12:17 PM CDT) Anatomical Region Laterality Modality Breast Bilateral Other 04/15/2008 12:1 7 PM CDT Narrative 04/18/2008 7:30 AM CDT [address] [address] Admit Date: 04/15/2008 [facility] Sex: F Admit Prov: SYLVIA PICKERING Date: 1950 Primary Care Prov: ADRIA KAUFFMAN CMRN: [id number] Room: BELKYSJuan R N: [id number] IMAGING SERVICES Ordering Prov: SYLVIA PICKERING Accession Number: [id number] Interpretation BILATERAL FULL FIELD DIGITAL SCREENING MAMMOGRAM WITH CAD. Date: 04/15/2008 History: Routine Screening. Technique: Full field digital craniocaudal and mediolateral oblique projections of both breasts were obtained. Computer aided diagnosis was performed. Comparison: 03/2007, 02/2006, 11/2004 Breast Parenchymal Composition: Scattered fibroglandular densities. Findings: No suspicious mass, suspicious microcalcifications, or architectural distortion in either breast is identified. Since the prior study, there has been no significant interval change. The computer aided diagnosis detects no significant abnormality. Overall Assessment: BI-RADS category 1: Negative. Recommendation: Annual mammography is recommended. Assessment BIRADS: 1-Negative Recommendation: Normal interval follow-up Dictated by: SAKSHI PARSONS Electronically signed by: SAKSHI PARSONS 04/18/2008 07:29 Transcribed: 04/15/2008 20:23 AMK Procedure Note Sakshi Parsons - 04/18/[address] [address] Admit Date: 04/15/2008 [facility] Sex: F Admit Prov: SYLVIA PICKERING Date: 1950 Primary Care Prov: ADRIA KAUFFMAN CMRN: [id number] Room: BELKYSJuan R SSN: [id number] IMAGING SERVICES Ordering Prov: SYLVIA PICKERING Interpretation BILATERAL FULL FIELD DIGITAL SCREENING MAMMOGRAM WITH CAD. Date: 04/15/2008 History: Routine Screening. Technique: Full field digital craniocaudal and mediolateral oblique projections of both breasts were obtained. Computer aided diagnosiswas performed. Comparison: 03/2007, 02/2006, 11/2004 Breast Parenchymal Composition: Scattered fibroglandular densities. Findings: No suspicious mass, suspicious microcalcifications, or architectural distortion in either breast is identified. Since theprior study, there has been no significant interval change. The computeraided diagnosis detects no significant abnormality. Overall Assessment: BI-RADS category 1: Negative. Recommendation: Annual mammography is recommended. Assessment BIRADS: 1-Negative Recommendation: Normal interval follow-up Dictated by: SAKSHI PARSONS Electronically signed by: SAKSHI PARSONS 04/18/2008 07:29 Transcribed: 04/15/2008 20:23 AMK Sylvia Pickering MD MAMMO ORDERABLES Final Result documented in this encounter Visit Diagnoses Diagnosis Other screening mammogram documented in this encounter Care Teams Teletypewriter Operator Relationship Specialty Start Date End Date Jimmy Armando MD PCP - General Internal Medicine 03/06/23 documented as of this encounter
--- OUTSIDE RECORDS SUMMARY | 2025-03-04 12:01 | XMS_ITS | Encounter Summary ---
Author Organization [facility] Address [address] [place] [address] Care Team Providers Care Laborer Prestressed Concrete Name Role Phone Jimmy Armando MD Primary Care Provider [phone] Encounter Details Date Type Department Care Team (Latest Contact Info) Description 09/19/2008 Outpatient Historical HIS [facility] Jacobs, Grant Zapata MD [address] [place] [address] Encounter for Long-Term (Current) Use of Other Medications Social History Tobacco Use Types Packs/Day Years Used Date Smoking Tobacco: Never Assessed Comments No Sex and Gender Information Value Date Recorded Sex Assigned at Not on file 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 Gender Identity Not on file Sexual Orientation Not on file documented as of this encounter Plan of Treatment Upcoming Encounters Date Type Department Care Team (Late st Contact Info) Description 03/08/2025 3:30 PM CDT Office Visit [facility] Oncology and Hematology - [place] [address] [facility] [address] [place] [address] Antonio Deras MD [address] [facility] [address] [place] [address] documented as of this encounter Procedures Procedure Name Priority Date/Time Associated Diagnosis Comments HEPATIC FUNCTION PANEL Routine 09/19/2008 4:39 PM BRAKE REPAIRER BUS documented in this encounter Results * (ABNORMAL) HEPATIC FUNCTION PANEL (09/19/2008 4:39 PM BRAKE REPAIRER BUS) BILIRUBIN DIRECT 0.1 0.0 - 0.3 mg/dL [facility] TOTAL PROTEIN 7.6 6.3 - 8.6 g/dL [facility] AST 33(H) 12 - 32 U/L [facility] ALBUMIN 4.4 3.4 - 4.8 g/dL [facility] ALT 43(H) 0 - 31 U/L [facility] BILIRUBIN TOTAL 0.3 0.2 - 1.0 mg/dL [facility] ALKALINE PHOSPHATASE 113(H) 35 - 104 U/L [facility] Blood specimen (specimen) 09/19/2008 4:39 PM BRAKE REPAIRER BUS 09/19/2008 5:26 PM BRAKE REPAIRER BUS us Grant Jacobs MD CHEMISTRY ORDERABLES Final Result INTERFACE SYSTEM Refer to clinic/hospital department [facility] CLIA# [id number] [address] [place] [address] documented in this encounter Visit Diagnoses Diagnosis Encounter for long-term (current) use of other medications documented in this encounter Care Teams Laborer Prestressed Concrete Relationship Specialty Start Date End Date Jimmy Armando MD PCP - General Internal Medicine 03/06/23 documented as of this encounter
--- OUTSIDE RECORDS SUMMARY | 2025-03-04 12:01 | XMS_ITS | Encounter Summary ---
Author Organization [facility] Address [address] [place] [address] Care Team Providers Care Physician Aide Name Role Phone Jimmy Armando MD Primary Care Provider [phone] Encounter Details Date Type Department Care Team (Latest Contact Info) Description 09/14/2008 Outpatient Historical [facility] Jacobs, Grant Zapata MD [address] [place] [address] Encounter for Long-Term (Current) Use of Other Medications Social History Tobacco Use Types Packs/Day Years Used Date Smoking Tobacco: Never Assessed Comments No Sex and Gender Information Value Date Recorded Sex Assigned at Not on file Legal Sex Female 4:53 AM ASSOCIATE SALES Gender Identity Not on file Sexual Orientation Not on file documented as of this encounter Plan of Treatment Upcoming Encounters Date Type Department Care Team (Late st Contact Info) Description 03/08/2025 3:30 PM CDT Office Visit [facility] Oncology and Hematology - [place] [address] [facility] [address] [place] [address] Antonio Deras MD [address] [facility] [address] [place] [address] documented as of this encounter Procedures Procedure Name Priority Date/Time Associated Diagnosis Comments CBC WITH DIFFERENTIAL Routine 09/14/2008 4:36 PM ASSOCIATE SALES COMPREHENSIVE METABOLIC PANEL Routine 09/14/2008 4:36 PM ASSOCIATE SALES documented in this encounter Results * (ABNORMAL) COMPREHENSIVE METABOLIC PANEL (09/14/2008 4:36 PM ASSOCIATE SALES) TOTAL PROTEIN 7.4 6.3 - 8.6 g/dL [facility] POTASSIUM 3.6 3.5 - 4.9 mmol/L [facility] GLUCOSE 89 65 - 99 mg/dL [facility] AST 49(H) 12 - 32 U/L [facility] BUN 16 6 - 20 mg/dL [facility] CALCIUM 10.3(H) 8.6 - 10.2 mg/dL [facility] CHLORIDE 100 96 - 108 mmol/L [facility] ALBUMIN 4.6 3.4 - 4.8 g/dL [facility] CREATININE 0.65 0.51 - 0.95 mg/dL [facility] SODIUM 142 135 - 145 mmol/L [facility] ALT 46(H) 0 - 31 U/L [facility] ALKALINE PHOSPHATASE 111(H) 35 - 104 U/L [facility] BILIRUBIN TOTAL 0.3 0.2 - 1.0 mg/dL [facility] CO2 30 22 - 30 mmol/L [facility] GFR, >60 >=60 mL/min/1. 7 sq meter [facility] GFR >60 >=60 mL/min/1. 7 sq meter [facility] Comment: Modification of Diet in Renal Disease (MDRD) study formula. Estimated GFR rate interpretative information for both Americans and non- Americans is available on the [facility] [facility] at: [email or web address] Select: Lab Policies and Procedures Select: Reference Ranges - GFR Blood specimen (specimen) 09/14/2008 4:36 PM ASSOCIATE SALES 09/14/2008 5:04 PM ASSOCIATE SALES Grant Jacobs MD CHEMISTRY ORDERABLES Edite d INTERFACE SYSTEM Refer to clinic/hospital department [facility] CLIA# [id number] [address] [facility] [place] [address] * (ABNORMAL) CBC WITH DIFFERENTIAL (09/14/2008 4:36 PM ASSOCIATE SALES) MCHC 35.1 31.5 - 35.5 % [facility] RBC 4.55 3.90 - 4.90 M/uL [facility] MCV 93.8 82.0 - 99.0 fL [facility] PLATELETS 199 140 - 350 K/uL [facility] HEMOGLOBIN 15.0(H) 11.8 - 14.8 g/dL [facility] RDW 12.9 11.5 - 14.5 % [facility] MCH 33.0(H) 27.2 - 32.6 pg [facility] MPV 11.3 9.3 - 12.4 fL [facility] WBC 6.2 4.0 - 9.8 K/uL [facility] HEMATOCRIT 42.7 35.5 - 44.0 % [facility] RDW-STDEV 43.8 37.1 - 48.7 fL [facility] MONOCYTE ABSOLUTE 0.44 0.10 - 1.30 K/uL [facility] NEUTROPHILS 60 45 - 70 % [facility] NEUTROPHIL ABSOLUTE 3.74 1.90 - 7.00 K/uL [facility] EOSINOPHILS 1 0 - 7 % [facility] EOSINOPHIL ABSOLUTE 0.06 0.00 - 0.70 K/uL [facility] LYMPHOCYTES 32 16 - 45 % [facility] LYMPHOCYTE ABSOLUTE 1.97 0.70 - 4.50 K/uL [facility] BASOPHILS 1 0 - 2 % [facility] BASOPHILS ABSOLUTE 0.03 0.00 - 0.20 K/uL [facility] MONOCYTES 7 3 - 13 % [facility] Blood specimen (specimen) 09/14/2008 4:36 PM ASSOCIATE SALES 09/14/2008 5:04 PM ASSOCIATE SALES us Grant Jacobs MD HEMATOLOGY ORDERABLES Edit ed INTERFACE SYSTEM Refer to clinic/hospital department [facility] CLIA# [id number] [address] [facility] [place] [address] documented in this encounter Visit Diagnoses Diagnosis Encounter for long-term (current) use of other medications documented in this encounter Care Teams Physician Aide Relationship Specialty Start Date End Date Jimmy Armando MD PCP - General Internal Medicine 03/06/23 documented as of this encounter
--- OUTSIDE RECORDS SUMMARY | 2025-03-04 12:01 | XMS_ITS | Referral Summary ---
Author Organization [facility] [address] Address [address] [place] [address] Care Team Providers Care Heavy Duty Truck Mechanic Name Role Phone Bulmaro Saravia MD Unavailable Kulwinder Lu MD Unavailable [phone] Horacio Charlton MD Unavailable Antonio Deras MD Unavailable [phone] Zenobia Laughlin DO Unavailable [phone] Sarahi Taylor MD Unavailable Chanelle Khan MD Primary Care Provider Encounters Date Type Department Care Team Description 02/15/2025 Orders Only [address] Medical Office Building [address] [place] [address] Harika Cruz MD Age-related osteoporosis without current pathological fracture (seeing Dr. Cruz) (Primary Dx) 02/14/2025 Orders Only [facility] [address] [place] [address] Dora Stewart RN 02/11/2025 Orders Only [address] Medical Office Building [address] [place] [address] Harika Cruz MD Age-related osteoporosis without current pathological fracture (Primary Dx) 02/10/[address] Office Building [address] [place] [phone] Harika Cruz MD 02/10/[address] [place] [address] Harika Cruz MD 02/10/2025 Orders Only [address] Building [address] [place] [address] Harika Cruz MD 02/04/2025 12:01 PM CDT - 02/04/2025 11:59 PM CDT Hospital Encounter [address] [address] Age-related osteoporosis without current pathological fracture (seeing Dr. Cruz) Discharge Disposition: Discharge to home or self care 02/04/2025 12:00 PM CDT Lab [facility] Outpatient Lab at [address] [phone] HTN (hypertension), benign (Primary Dx) 02/04/[address] [place] [address] Harika Cruz MD Treatment Plan Update (New reclast ) 02/03/2025 2:10 PM CDT Clinical Support [address] Building [address] [place] [address] Age-related osteoporosis without current pathological fracture (Primary Dx) 02/03/2025 2:40 PM CDT Office Visit [address] [place] [address] Harika Cruz MD Age-related osteoporosis without current pathological fracture (seeing Dr. Cruz) (Primary Dx) 01/25/2025 2:30 PM CDT Office Visit [facility] Gastroenterology at [address] [place] [address] Tisha Holm NP Gastroesophageal reflux disease without esophagitis (Primary Dx); History of colon polyps 01/18/2025 1:20 PM CDT Office Visit [facility] Rheumatology [address] [facility] 5[address] [place] [address] [place] [phone] Sarahi Taylor MD Rheumatoid arthritis involving multiple sites with positive rheumatoid factor (HCC) (Primary Dx) from Last 3 Months Allergies Active Allergy Reactions Criticality Noted Date [...] scale 1-4) Active hydrocortisone 2.5 % cream 08/08/20 23 Active melatonin tablet Take 1 tablet [...] vaginal opening 1-2 times per week for termite treater maintenance 42.5 g 11 07/06/20 24 Active gabapentin (NEURONTIN) 100 mg [...] 07/09/2023 Assessment & Plan (09/21/2023 11:01 AM SCREWMAKER AUTOMATIC): Seeing Dr. Saravia, cardiology who is managing/assessing Urethral caruncle 04/28/2023 Assessment & Plan (04/28/2023 5:50 PM CDT): -continue twice weekly pea sized amount to urethra Vaginal atrophy 04/28/2023 Assessment & Plan (04/28/2023 5:52 PM CDT): -continue twice weekly VET Rheumatoid arthritis involvi ng multiple sites with positive rheumatoid factor (CMS/HCC) ([facility]) 03/27/2023 Assessment & Plan (09/21/2023 11:13 AM SCREWMAKER AUTOMATIC): Monitored and managed by rheumatology Dr. Shaikh. Steel. Continue hydroxychloroquine and gabapentin Pelvic floor dysfunction 01/30/2023 Assessment & Plan (04/28/2023 5:49 PM CDT): Continue PFPT exercises Bilateral myofascial pain 01/30/2023 Urge incontinence of urine 07/30/2022 Assessment & Plan (04/28/2023 5:52 PM CDT): -95% improved with PFPT and lifestyle modifications Assessment & Plan (07/30/2022 6:38 PM CDT): Has some urethral prolapse. Refer to urogyn and follow up with job interviewer Hematuria 07/30/2022 Chronic right shoulder pain 07/02/2022 History of hypoglycemia 05/28/2022 Assessment & Plan (07/30/2022 5:26 PM CDT): Diet controlled. Insomnia 04/25/2022 Assessment & Plan (04/25/2022 2:24 PM CDT): Down to 50 mg from 75 mg of trazodone Lichen sclerosus et atrophicus 03/27/2022 Assessment & Plan (04/28/2023 5:52 PM CDT): -continue twice weekly clobetasol -follow up with [facility] Assessment & Plan (04/25/2022 2:33 PM CDT): Sees Dr. Bolanos and uses triamcinolone prn Mixed hyperlipidemia 09/05/2021 Assessment & Plan (09/21/2023 11:04 AM SCREWMAKER AUTOMATIC): LDL 165 in 06/27/21. Since then LDL has come down with last checked 03/03/23 at 112 Assessment & Plan (03/27/2023 11:07 AM CDT): Controlled. Cont diet and thyroid meds Medication side effects 09/05/2021 ADHD 02/22/2021 Overview (08/23/2021): Did not tolerate strattera Assessment & Plan (09/21/2023 11:04 AM SCREWMAKER AUTOMATIC): Stable managing without medication Assessment & Plan (04/25/2022 3:49 PM CDT): Not doing CBD any longer Feeling stable in this regard Assessment & Plan (10/24/2021 9:20 PM SCREWMAKER AUTOMATIC): Did not start effexor Cont cbd Assessment & Plan (08/23/2021 8:30 AM CDT): Feel reasonable to try low dose effexor- side effects were discussed. Advised it may take several weeks to improve symptoms. Assessment & Plan (02/22/2021 11:29 AM CDT): Did not tolerate strattera Not med managed currently GERD (gastroesophageal reflux disease) 0 Assessment & Plan (01/25/2025 3:00 PM CDT): [...] loss Assessment & Plan (09/21/2023 11:03 AM SCREWMAKER AUTOMATIC): Controlled/stable. Continue current meds and plan (Pepcid) Assessment & Plan (04/25/2022 2:23 PM CDT): Twice a day pepcid HTN (hypertension), benign 07/05/2020 Overview (10/24/2021): Cant use amlodopine dt leg swelling Hydralazine- tingling in legs Assessment & Plan (09/21/2023 11:02 AM SCREWMAKER AUTOMATIC): Controlled/stable. Continue current meds and plan continue Valsartan/HCTZ 160/12.5 mg daily, verapamil 120 mg daily Assessment & Plan (03/27/2023 11:07 AM CDT): Controlled/stable. Continue current meds and plan Assessment & Plan (07/30/2022 6:38 PM CDT): Controlled. monitor Assessment & Plan (04/25/2022 3:48 PM CDT): On hctz-valsartan- doing well, would cont Assessment & Plan (10/24/2021 9:21 PM SCREWMAKER AUTOMATIC): Controlled Stay off hydralazine Assessment & Plan (08/23/2021 8:34 AM CDT): Taking hydralazine- feels her b/l leg tingling is dt this, suggested starting b6. Cont christian Sees Dr> Luc in a few weeks, if tingling doesn't [...] 07/05/2020 Assessment & Plan (09/21/2023 11:03 AM SCREWMAKER AUTOMATIC): Controlled/stable. Continue current meds and plan (levothyroxine) [...] now. Assessment & Plan (09/21/2023 11:13 AM SCREWMAKER AUTOMATIC): Managed and monitored by Dr. Cruz. Getting [...] adenoma. Assessment & Plan (09/21/2023 11:02 AM SCREWMAKER AUTOMATIC): Seeing bone specialist. Who is managing/monitoring. 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 Not on file Not on file N ot on file Last Filed Vital Signs Vital Sign Reading Time Taken Comments Blood Pressure 136/81 01/25/2025 2:44 PM CDT Pulse 67 01/25/2025 2:44 PM CDT Temperature 36.9 C (98.5 F) 01/18/2025 1:30 PM CDT Respiratory Rate 11 07/26/2024 12:15 PM CDT Oxygen Saturation 99% 10/27/2024 8:50 AM SCREWMAKER AUTOMATIC Inhaled Oxygen Concentration - - Weight 48.1 kg (106 lb) 02/03/2025 2:13 PM CDT Height 147.3 cm (4' 10 ) 02/03/2025 2:13 PM CDT Body Mass Index 22.15 02/03/2025 2:13 PM CDT Plan of Treatment Not on file Medical Devices Implanted Type Area Completion Engineer Device Identifier Shelf Expiration Date Model / Serial / Lot [employer] Instinct Plus Endoscopic Clip Hemostatic [id number] - [id number] Implanted:Qty: 1 on 01/14/2023 by Ariela Rajput MD at [facility] [employer] [id number] 10/01/2025 [id number] / / [id number] Procedures Procedure Name Priority Date/Time Associated Diagnosis [...] current pathological fracture SCREENING MAMMOGRAM BILATERAL W SHAKA Schedule Routine, Read Routine (OP Routine) 07/29/2024 [...] of Race in Diagnosing Kidney Disease, JASN 2020). The CKD-EPI equation should not be used for patients with unstable renal function and has not been validated in children and those over 70. Current interpretive data was last reviewed 2021. Blood 02/04/2025 12:0 1 PM CDT 02/04/2025 8:47 PM CDT us Harika Cruz MD LAB BLOOD ORDERABLES Final Result JOANN MORGAN [address] [place] [address] * Vitamin D 25 hydroxy (02/04/2025 12:01 PM CDT) [facility] Vitamin D 25-OH 56 30 - 80 ng/mL Blood 02/04/2025 12:0 1 PM CDT 02/04/2025 8:47 PM CDT Harika Cruz MD LAB BLOOD ORDERABLES Final Result Performing Organization Address [facility] de Phone Number JOANN MORGAN [id number] [place] [address] * (ABNORMAL) PTH (02/04/2025 12:01 PM CDT) [facility] PTH 156(H) 15 - 65 pg/mL Blood 02/04/2025 12:0 1 PM CDT 02/04/2025 8:47 PM CDT Harika Cruz MD LAB BLOOD ORDERABLES Final Result Performing Organization Address [facility] de Phone Number JOANN MORGAN [phone] [place] [address] * (ABNORMAL) Basic metabolic panel (02/04/2025 12:01 PM CDT) [facility] Sodium 132(L) 135 - 145 mmol/L Potassium, pl 4.3 3.3 - 4.9 mmol/L [facility] Chloride 94(L) 97 - 110 mmol/L [facility] CO2 28 22 - 32 mmol/L [facility] Anion gap 10 2 - 15 mmol/L [facility] BUN 12 6 - 25 mg/dL [facility] Creatinine 0.64 0.60 - 1.10 mg/dL [facility] Glucose 83 70 - 199 mg/dL [facility] Comment: Interpretive Data Fasting glucose >/= 126 [...] 2022. Calcium 9.0 8.5 - 10.3 mg/dL JOANN MORGAN Blood 02/04/2025 12:0 1 PM CDT 02/04/2025 8:47 PM CDT us Harika Cruz MD LAB BLOOD ORDERABLES Final Result JOANN MORGAN [id number] Department [place] [address] * Dexa TBS Axial Skeleton Bone Density [...] smokeless tobacco. Currently on treatment with calcium, vitamin D, thyroid hormone, and diuretics and previously treated with zoledronic acid (Reclast), raloxifene (Evista), and hormone replacement therapy. INDICATIONS: Menopause status and history of osteoporosis. FINDINGS: BONE MINERAL DENSITY OF THE LUMBAR SPINE Bone Mineral Density (BMD) of the lumbar spine was measured from L1-L4 and the average density was calculated to be 0.879 gm/cm2. This corresponds to a T-score (standard deviations from the mean of young adults) of -1.5. When compared to the previous study of 01/22/2024 there has been no significant changes in bone density. BONE MINERAL DENSITY OF THE PROXIMAL FEMUR Bone Mineral Density (BMD) of the left hip total was found to be 0.684 gm/cm2. This corresponds to a T-score standard deviations from the mean of young adults of -2.1. Femoral neck is 0.513 gm/cm2 with a T-score (standard deviations from the mean of young adults) of -3.0. When compared to the previous study of 01/22/2024 there has been a -0.037 gm/cm (-5.1%) decrease in bone density that is considered significant. BONE MINERAL DENSITY OF THE FOREARM Bone Mineral density (BMD) of the left proximal 1/3 of the radius measures 0.654 gm/cm2. This corresponds to a T-score (standard deviations from the mean of young adults) of -0.7. When compared to the previous study of 01/22/2024 there has been no significant changes in bone density. A forearm bone density study was performed in addition to the routine study due to history of hyperparathyroidism. SUMMARY: Bone mineral density shows evidence of osteoporosis and marked increase risk of fracture. There has been a significant decrease in bone density since previous measurement. The lumbar spine Trabecular Bone Score is 1.291 which suggests partially degraded bone microarchitecture compared to the general population. Final decisions regarding diagnostic or therapeutic recommendations should include BMD, TBS, additional clinical risk factors as well the clinical context of the patient. Please see attached TBS results for further details. ADDITIONAL COMMENTS: Postmenopausal Women and Men Over 50: Diagnostic criteria: Osteoporosis: BMD at or below -2.5 T-score; Osteopenia (low bone mass): BMD between -1.0 and -2.5 T-score. If the patient has a history of a fragility fracture, a fracture that occurred with trauma equivalent to a fall from a standing position or less, then the diagnosis is osteoporosis regardless of bone density. The history and data sections of the bone mineral density scan were prepared by Erma Alvares (R)(CBDT) who is accredited by the International Society of Clinical Densitometry. The overall patient assessment and scan interpretation were performed by Harika Cruz M.D. who is certified by the International Society of Clinical Densitometry. [id number] us Harika Cruz MD IMG DXA PROCEDURES Final Re sult * Screening Mammogram Bilateral W Shaka (07/29/2024 2:16 PM CDT) Anatomical Region Laterality Modality Breast Bilateral Mammography Impressions 07/29/2024 2:18 PM CDT BI-RADS ATLAS category (overall): 1 - Negative There is no mammographic evidence of malignancy. A 1 year screening mammogram is recommended. The patient has been or will be contacted. We recommend annual screening mammography for women at average risk of breast cancer beginning at age 40, based on guidelines of the [place] [employer] (ACR Practice Parameter for the Performance of Screening and Diagnostic Mammography) and [place] [employer]. For women with and elevated risk of breast cancer, please refer to the ACR Practice Parameter for specific screening recommendations. The patient will be entered into a reminder system with a target due date of 1 year for her next screening exam. Narrative 07/29/2024 2:18 PM CDT Screening Mammogram Bilateral W Shaka: 07/29/24 The study was acquired using full field digital technology and interpreted from soft copy. 2D digital mammographic views, as well as 3D digital tomosynthesis were performed in the CC and MLO projections. CLINICAL: Encounter for screening mammogram for malignant neoplasm of breast. No relevant medical history has been documented for this patient. History of breast cancer in Neg Hx. COMPARISONS: 07/29/2023 Screening Mammogram Bilateral W Shaka 06/13/2022 Screening Mammogram Bilateral W Shaka 06/11/2021 Screening Mammogram Bilateral W Shaka 12/11/2018 SCREENING MAMMOGRAM 2D BILATERAL 12/11/2018 Screening Mammogram 12/11/2017 SCREENING MAMMOGRAM 2D BILATERAL 12/11/2017 Screening Mammogram 11/27/2016 SCREENING MAMMOGRAM 2D BILATERAL 11/06/2015 SCREENING MAMMOGRAM 2D BILATERAL 07/18/2014 SCREENING MAMMOGRAM 2D BILATERAL 07/12/2013 SCREENING MAMMOGRAM 2D BILATERAL BREAST TISSUE: There are scattered areas of fibroglandular density. FINDINGS: No suspicious masses, suspicious calcifications, or other suspicious findings are seen within either breast. There has been no suspicious change. us Horacio Charlton MD IMG MAMMO PROCEDURES Fin al Result * Hepatitis C antibody (03/03/2023 4:37 PM CDT) Hep C Ab Nonreactive Nonreactive JOANN MUIR Comment: Interpretive Data Nonreactive: Antibodies to HCV not detected. D [id number]|2025-03-04 12:01:00|2025-03-04 12:01:00|XMS_ITS|BKG DAEMON|External Medical Summaries|[id number]|" Encounter Summary Created on: March 04, 2025 Shawnee Roman : 1950 Sex: Female Author Organization [employer] [facility] Address [address] [place] [address] Care Team Providers Care Heavy Duty Truck Mechanic Name Role Phone Jimmy Armando MD Primary Care Provider [phone] Encounter Details Date Type Department Care Team (Latest Contact Info) Description 09/23/2008 Outpatient Historical HIS [facility] Penny Fuller MD [address] [facility] [address] [place] [address] Other Nonspecific Abnormal Serum Enzyme Levels Social History Tobacco Use Types Packs/Day Years Used Date Smoking Tobacco: Never Assessed Comments No Sex and Gender Information Value Date Recorded Sex Assigned at Not on file Legal Sex Female 4:53 AM SCREWMAKER [employer]OMATIC Gender Identity Not on file Sexual Orientation Not on file documented as of this encounter Plan of Treatment Upcoming Encounters Date Type Department Care Team (Late st Contact Info) Description 03/08/2025 3:30 PM CDT Office Visit [facility] Oncology and Hematology - [place] [address] [facility] [address] [place] [address] Antonio Deras MD [address] [facility] [address] [place] [address] documented as of this encounter Visit Diagnoses Diagnosis Other nonspecific abnormal serum enzyme levels documented in this encounter Care Teams Heavy Duty Truck Mechanic Relationship Specialty Start Date End Date Jimmy Armando MD PCP - General Internal Medicine 03/06/23 documented as of this encounter "
--- OUTSIDE RECORDS SUMMARY | 2025-03-04 12:02 | XMS_ITS | Encounter Summary ---
Author Organization [facility] Address [address] [place] [address] Care Team Providers Care Train Electronic Technician Name Role Phone Jimmy Armando MD Primary Care Provider [phone] Encounter Details Date Type Department Care Team (Latest Contact Info) Description 12/17/2004 Outpatient Historical [facility] [place] [address] [place] [address] SCREENING MAMM-MAILG NEOPL-OTHER (Primary Dx) Social History Tobacco Use Types Packs/Day Years Used Date Smoking Tobacco: Never Assessed Comments Unknown Sex and Gender Information Value Date Recorded Sex Assigned at Not on file Legal Sex Female 4:53 AM PAY 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 DEPARTMENT 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 Gender Identity Not on file Sexual Orientation Not on file documented as of this encounter Plan of Treatment Upcoming Encounters Date Type Department Care Team (Late st Contact Info) Description 03/08/2025 3:30 PM CDT Office Visit [facility] Oncology and Hematology - [place] [address] [facility] [address] [place] [address] Antonio Deras MD [address] [facility] [address] [place] [address] documented as of this encounter Visit Diagnoses Diagnosis Other screening mammogram- Primary documented in this encounter Care Teams Train Electronic Technician Relationship Specialty Start Date End Date Jimmy Armando MD PCP - General Internal Medicine 03/06/23 documented as of this encounter
--- OUTSIDE RECORDS SUMMARY | 2025-03-04 12:02 | XMS_ITS | Encounter Summary ---
Author Organization [facility] Address [address] [facility] [place] [address] Care Team Providers Care Ammunition Assembly I Laborer Name Role Phone Unavailable Primary Care Provider Unavailabl e Encounter Details Date Type Department Care Team (Late st Contact Info) Description 07/31/2023 Lab Requisition [facility] - DermPath Lab [address] [facility], [place] [id number] Ted Rojas MD [address] [address] Social History Tobacco Use Types Packs/Day Years Used Date Smoking Tobacco: Never Assessed Comments Unknown Sex and Gender Information Value Date Recorded Sex Assigned at Not on file Legal Sex Female 4:34 PM CDT Gender Identity Not on file Sexual Orientation Not on file documented as of this encounter Plan of Treatment Not on file documented as of this encounter Procedures Procedure Name Priority Date/Time Associated Diagnosis Comments DERMATOPATHOLOGY Routine 07/30/2023 12:0 0 AM CDT documented in this encounter Results * DERMATOPATHOLOGY (07/30/2023 12:00 AM CDT) Case Report Dermatopathology Report Case: [id number] Authorizing Provider: Ted Rojas MD Collected: 07/30/2023 12:00 AM Ordering Location: [facility] DermPath Lab Received: 08/01/2023 06:41 AM Pathologist: Samanta Miller MD Specimens: A) - Skin, right ant hairline B) - Skin, right upper arm 12:59 PM CDT DERMATOPATHOLOGY LABORATORY Final Diagnosis Specimen A. SKIN, right ant hairline: FOLLICULITIS, SUPPURATIVE, SUPERFICIAL PORTIONS OF (L73.8) Specimen B. SKIN, right upper arm: DERMATOFIBROMA (D23.9) 12:59 PM CDT DERMATOPATHOLOGY LABORATORY Clinical History A: Folliculitis vs BCCA Path# [id number] B: DF vs BCCA vs other Path# [id number] 12:59 PM CDT DERMATOPATHOLOGY LABORATORY Gross Description Specimen A: Received is one formalin filled container labeled with the patient's name and designated right ant hairline. The specimen consists of a shave biopsy measuring 3x3x1 mm. Jar 0. Specimen B: Received is one formalin filled container labeled with the patient's name and designated right upper arm. The specimen consists of a shave biopsy measuring 5x4x2 mm. Jar 0. 12:59 PM CDT DERMATOPATHOLOGY LABORATORY Microscopic Description Specimen A. SKIN, right ant hairline: Sections show superficial portions of rupture of the follicular infundibulum, with numerous neutrophils. Specimen B. SKIN, right upper arm: There is epidermal hyperplasia. Within the dermis, there are fibrohistiocytic cells in haphazard array among coarse collagen bundles. 12:59 PM CDT DERMATOPATHOLOGY LABORATORY Disclaimer An external and internal positive and negative controls are appropriate for the histochemical, immunohistochemical and immunofluorescence stain(s) in this case (if any), except where stated explicitly. The performance characteristics of the stain(s) cited in this report were developed and its performance characteristic determined by the Dermatopathology Laboratory at [facility], directed by Dr. Shasta Green. These tests need not be, and therefore are not, approved by the [place] Food and Drug Administration. The tests are used for clinical purposes. Billing Codes Specimen Charges Stain Charges 59774 99735 1 1 12:59 PM CDT DERMATOPATHOLOGY LABORATORY Embedded Images 12:59 PM CDT DERMATOPATHOLOGY LABORATORY Pathology/Cytology TISSUE SPECIMEN FROM SKIN / Unknown 07/30/2023 08/01/2023 6:41 AM CDT Miscellaneous samples (specimen) TISSUE SPECIMEN FROM SKIN / Unknown 07/30/2023 08/01/2023 6:41 AM CDT us Ted Rojas MD LAB - PATHOLOGY/CYTOLOGY ORDER BLAINE Final Result DERMATOPATHOLOGY LABORATORY [facility] - Department of Dermatology [facility] [address] [place] [address], [address] Floor [address] [phone] documented in this encounter Visit Diagnoses Not on filedocumented in this encounter
--- OUTSIDE RECORDS SUMMARY | 2025-03-04 12:02 | XMS_ITS | Encounter Summary ---
Author Organization [facility] Address [address] [place] [address] Care Team Providers Care Rhit Name Role Phone Jimmy Armando MD Primary Care Provider [phone] Encounter Details Date Type Department Care Team (Late st Contact Info) Description 10/31/2006 Outpatient [facility] [address] [place] [address]. [place], [place] [id number] Alyson Cheung MD Social History Tobacco Use Types Packs/Day Years Used Date Smoking Tobacco: Never Assessed Comments Unknown Sex and Gender Information Value Date Recorded Sex Assigned at Not on file Legal Sex Female 4:53 AM RECREATION ENGINEER Gender Identity Not on file Sexual Orientation Not on file documented as of this encounter Plan of Treatment Upcoming Encounters Date Type Department Care Team (Late st Contact Info) Description 03/08/2025 3:30 PM CDT Office Visit [facility] Oncology and Hematology - [place] [address] [place] [address] [address] [place] [address] Antonio Deras MD [address] [facility] [address] [place] [address] documented as of this encounter Visit Diagnoses Not on filedocumented in this encounter Care Teams Rhit Relationship Specialty Start Date End Date Jimmy Armando MD PCP - General Internal Medicine 03/06/23 documented as of this encounter
--- OUTSIDE RECORDS SUMMARY | 2025-03-04 12:02 | XMS_ITS | Encounter Summary ---
Author Organization [facility] Address [address] [place] [address] Care Team Providers Care Mule Operator Name Role Phone Jimmy Armando MD Primary Care Provider [phone] Encounter Details Date Type Department Care Team (Latest Contact Info) Description 06/14/2009 Outpatient Historical HIS [facility] Robin Rios MD [address] [facility] [address] [place] [address] Unspecified Osteoporosis Social History Tobacco Use Types Packs/Day Years Used Date Smoking Tobacco: Never Assessed Comments No Sex and Gender Information Value Date Recorded Sex Assigned at Not on file Legal Sex Female 4:53 AM KITCHEN MANAGER Gender Identity Not on file Sexual Orientation Not on file documented as of this encounter Plan of Treatment Upcoming Encounters Date Type Department Care Team (Late st Contact Info) Description 03/08/2025 3:30 PM CDT Office Visit [facility] Oncology and Hematology - [place] [address] [facility] [address] [place] [address] Antonio Deras MD [address] [facility] [address] [place] [address] documented as of this encounter Procedures Procedure Name Priority Date/Time Associated Diagnosis Comments T3 FREE Routine 06/14/2009 12:44 PM CDT TSH Routine 06/14/2009 12:44 PM CDT T4 FREE Routine 06/14/2009 12:44 PM CDT PTH INTACT Routine 06/14/2009 12:44 PM CDT COMPREHENSIVE METABOLIC PANEL Routine 06/14/2009 12:44 PM CDT documented in this encounter Results * (ABNORMAL) COMPREHENSIVE METABOLIC PANEL (06/14/2009 12:44 PM CDT) CALCIUM 9.7 8.6 - 10.2 mg/dL [facility] CREATININE 0.65 0.51 - 0.95 mg/dL [facility] TOTAL PROTEIN 7.5 6.3 - 8.6 g/dL [facility] POTASSIUM 3.9 3.5 - 4.9 mmol/L [facility] AST 27 12 - 32 U/L [facility] BUN 17 6 - 20 mg/dL [facility] CHLORIDE 100 96 - 108 mmol/L [facility] ALBUMIN 4.4 3.4 - 4.8 g/dL [facility] GLUCOSE 90 65 - 99 mg/dL [facility] SODIUM 139 135 - 145 mmol/L [facility] ALT 24 0 - 31 U/L [facility] BILIRUBIN TOTAL 0.5 0.2 - 1.0 mg/dL [facility] ALKALINE PHOSPHATASE 134(H) 35 - 104 U/L [facility] CO2 30 22 - 30 mmol/L [facility] GFR, >60 >=60 mL/min/1. 7 sq meter [facility] GFR >60 >=60 mL/min/1. 7 sq meter [facility] Comment: Modification of Diet in Renal Disease (MDRD) study formula. Estimated GFR rate interpretative information for both Americans and non- Americans is available on the [facility] Intranet at: [email or web address] Select: Lab Policies and Procedures Select: Reference Ranges - GFR Blood specimen (specimen) 06/14/2009 12:44 PM CDT 06/14/2009 1:13 PM CDT us Robin Rosado MD CHEMISTRY ORDERABLES Edited Performing Organization Address City/[facility]/ZIP Co de Phone Number [facility] CLIA# [id number] [address] [place] [address] * PTH INTACT (06/14/2009 12:44 PM CDT) CALCIUM 9.7 8.6 - 10.2 mg/dL [facility] PTH INTACT 64 15 - 65 pg/mL [facility] Blood specimen (specimen) 06/14/2009 12:44 PM CDT 06/14/2009 1:13 PM CDT us Robin Rosado MD CHEMISTRY ORDERABLES Edited Performing Organization Address [facility] Co de Phone Number [facility] CLIA# [id number] [address] [place] [address] * TSH (06/14/2009 12:44 PM CDT) TSH 1.72 0.27 - 4.20 uU/mL [facility] Blood specimen (specimen) 06/14/2009 12:44 PM CDT 06/14/2009 1:13 PM CDT us Robin Rosado MD CHEMISTRY ORDERABLES Final Result [facility] CLIA# [id number] [address] [place] [address] * T3 FREE (06/14/2009 12:44 PM CDT) T3 FREE 4.1 2.5 - 4.4 pg/mL [facility] Blood specimen (specimen) 06/14/2009 12:44 PM CDT 06/14/2009 1:13 PM CDT us Robin Rosado MD CHEMISTRY ORDERABLES Final Result Performing Organization Address [facility] de Phone Number [facility] CLIA# [id number] [address] [place] [address] * (ABNORMAL) T4 FREE (06/14/2009 12:44 PM CDT) T4 FREE 0.8(L) 0.9 - 1.7 ng/dL [facility] Blood specimen (specimen) 06/14/2009 12:44 PM CDT 06/14/2009 1:13 PM CDT us Robin Rosado MD CHEMISTRY ORDERABLES Final Result Performing Organization Address [facility] Co de Phone Number [facility] CLIA# [id number] [address] [place] [address] documented in this encounter Visit Diagnoses Diagnosis Osteoporosis, unspecified documented in this encounter Care Teams Mule Operator Relationship Specialty Start Date End Date Jimmy Armando MD PCP - General Internal Medicine 03/06/23 documented as of this encounter
--- OUTSIDE RECORDS SUMMARY | 2025-03-04 12:02 | XMS_ITS | Encounter Summary ---
Author Organization [facility] Address [address] [place] [address] Care Team Providers Care District Plant Engineer Name Role Phone Jimmy Armando MD Primary Care Provider [phone] Encounter Details Date Type Department Care Team (Latest Contact Info) Description 12/01/2008 Outpatient Historical HIS [facility] Penny Fuller MD [address] [facility] [address] [place] [address] Unspecified Essential Hypertension Social History Tobacco Use Types Packs/Day Years Used Date Smoking Tobacco: Never Assessed Comments No Sex and Gender Information Value Date Recorded Sex Assigned at Not on file Legal Sex Female 4:53 AM INSTRUCTOR OF EDUCATION Gender Identity Not on file Sexual Orientation Not on file documented as of this encounter Plan of Treatment Upcoming Encounters Date Type Department Care Team (Late st Contact Info) Description 03/08/2025 3:30 PM CDT Office Visit [facility] Oncology and Hematology - [place] [address] [place] [address] [facility] [address] [place] [address] Antonio Deras MD [address] [facility] [address] [place] [address] documented as of this encounter Visit Diagnoses Diagnosis Unspecified essential hypertension documented in this encounter Care Teams District Plant Engineer Relationship Specialty Start Date End Date Jimmy Armando MD PCP - General Internal Medicine 03/06/23 documented as of this encounter
--- OUTSIDE RECORDS SUMMARY | 2025-03-04 12:02 | XMS_ITS | Encounter Summary ---
Author Organization [facility] Address [address] [place] [address] Care Team Providers Care Home Health Care Respiratory Therapist Name Role Phone Jimmy Armando MD Primary Care Provider [phone] Encounter Details Date Type Department Care Team (Latest Contact Info) Description 04/07/2007 Outpatient Historical [facility] [place] [address] [place] [address] Other Screening Mammogram (Primary Dx) Social History Tobacco Use Types Packs/Day Years Used Date Smoking Tobacco: Never Assessed Comments Unknown Sex and Gender Information Value Date Recorded Sex Assigned at Not on file Legal Sex Female 4:53 AM INTERNATIONAL FIRST OFFICER Gender Identity Not on file Sexual Orientation Not on file documented as of this encounter Plan of Treatment Upcoming Encounters Date Type Department Care Team (Late st Contact Info) Description 03/08/2025 3:30 PM CDT Office Visit [facility] Oncology and Hematology - [place] [address] [facility] [address] [place] [address] Antonio Deras MD [address] [facility] [address] [place] [address] documented as of this encounter Visit Diagnoses Diagnosis Other screening mammogram- Primary documented in this encounter Care Teams Home Health Care Respiratory Therapist Relationship Specialty Start Date End Date Jimmy Armando MD PCP - General Internal Medicine 03/06/23 documented as of this encounter
--- OUTSIDE RECORDS SUMMARY | 2025-03-04 12:02 | XMS_ITS | Encounter Summary ---
Author Organization [facility] Address [address] [place] [address] Care Team Providers Care White Goods Appliance Tech Name Role Phone Jimmy Armando MD Primary Care Provider Encounter Details Date Type Department Care Team (Latest Contact Info) Description 08/18/2006 Outpatient Historical HIS [facility] Penny Fuller MD [address] [facility] [address] [place] [address] Unspecified Hypothyroidism (Primary Dx) Social History Tobacco Use Types Packs/Day Years Used Date Smoking Tobacco: Never Assessed Comments Unknown Sex and Gender Information Value Date Recorded Sex Assigned at Not on file Legal Sex Female 4:53 AM IN SERVICE COORDINATOR Gender Identity Not on file Sexual Orientation Not on file documented as of this encounter Plan of Treatment Upcoming Encounters Date Type Department Care Team (Late st Contact Info) Description 03/08/2025 3:30 PM CDT Office Visit [facility] Oncology and Hematology - [place] [address] [facility] [address] [place] [address] Antonio Deras MD [address] [facility] [address] [place] [address] documented as of this encounter Procedures Procedure Name Priority Date/Time Associated Diagnosis Comments TSH REFLEXIVE Routine 08/18/2006 4:07 PM IN SERVICE COORDINATOR documented in this encounter Results * TSH REFLEXIVE (08/18/2006 4:07 PM IN SERVICE COORDINATOR) TSH 2.60 0.27 - 4.20 uU/mL INTERFACE SYSTEM 08/18/2006 4:07 PM IN SERVICE COORDINATOR us Penny Kan MD CHEMISTRY ORDERABLES Final Resu lt INTERFACE SYSTEM Refer to clinic/hospital department documented in this encounter Visit Diagnoses Diagnosis Unspecified hypothyroidism- Primary documented in this encounter Care Teams White Goods Appliance Tech Relationship Specialty Start Date End Date Jimmy Armando MD PCP - General Internal Medicine 03/06/23 documented as of this encounter
--- OUTSIDE RECORDS SUMMARY | 2025-03-04 12:02 | XMS_ITS | Encounter Summary ---
Author Organization [facility] Address [address] [place] [address] Care Team Providers Care Lace Sewer Name Role Phone Jimmy Armando MD Primary Care Provider [phone] Encounter Details Date Type Department Care Team (Latest Contact Info) Description 04/19/2009 Outpatient Historical [facility] [address] [place] [address] Symptomatic Menopausal or Female Climacteric States Social History Tobacco Use Types Packs/Day Years Used Date Smoking Tobacco: Never Assessed Comments No Sex and Gender Information Value Date Recorded Sex Assigned at Not on file Legal Sex Female 4:53 AM TEMPERATURE REGULATOR Gender Identity Not on file Sexual Orientation Not on file documented as of this encounter Plan of Treatment Upcoming Encounters Date Type Department Care Team (Late st Contact Info) Description 03/08/2025 3:30 PM CDT Office Visit [facility] Oncology and Hematology - [place] [address] [facility] [address] [place] [address] Antonio Deras MD [address] [facility] [address] [place] [address] documented as of this encounter Procedures Procedure Name Priority Date/Time Associated Diagnosis Comments XR DEXA BONE DENSITY AXIAL 1 OR MORE SITES Routine 04/19/2009 3:21 PM CDT documented in this encounter Results * XR DEXA BONE DENSITY AXIAL 1 OR MORE SITES (04/19/2009 3:21 PM CDT) Anatomical Region Laterality Modality Other 04/19/2009 3:21 PM CDT Narrative 04/19/2009 3:28 PM CDT [facility] [address], [place] [address] Admit Date: 04/19/2009 [facility] Sex: F Admit Prov: SYLVIA PICKERING Date: 1950 Primary Care Prov: ADRIA KAUFFMAN CMRN: [id number] Room: [facility]: [id number] IMAGING SERVICES Ordering Prov: N/A Accession Number: [id number] Interpretation Examination: Bone Density Study (DEXA) Clinical History: 58 year-old postmenopausal female with osteopenia. Monitor for osteoporosis. Findings: Lateral radiograph of the lumbar spine: No evidence of fracture. Comparison values to prior exams: Lumbar Spine (L 1-4 ) bone mineral density is 1.05 g/sq cm which corresponds to a T-score of -1.1. The prior spine bone mineral density on 04/07/2007 was 1.14 g/sq cm which represents a decrease of 0.093 g/sq cm or -8.2 %. Left femoral neck bone mineral density is 0.72 g/sq cm which corresponds to a T-score of -2.3. The prior femoral neck bone mineral density on 04/07/2007 was 0.79 g/sq cm which represents a decrease of 0.061 g/sq cm or -7.8 %. Right femoral neck bone mineral density is 0.70 g/sq cm which corresponds to a T-score of -2.5. Impressions: Lumbar spine: This patient's bone mineral density of the spine is mildly osteopenic which is normal for age when compared to the normal range of young adults and present fracture risk is considered to be low. Hips: This patient's bone mineral density of the hip is very osteopenic when compared to the normal range of young adults and present fracture risk is considered to be moderate. Comments: Substantial bone mineral loss since the examination from 2 years ago. Detailed report to follow. . Dictated by: RADHA HEARD 04/19/2009 15:26 Electronically signed by: RADHA HEARD 04/19/2009 15:27 Procedure Note Radha Heard MD - 04/19/2009 [facility] [address] [place], [place] [address] Admit Date: 04/19/2009 [facility] Sex: F Admit Prov: SYLVIA PICKERING Date: 1950 Primary Care Prov: ADRIA KAUFFMAN CMRN: [id number] [id number] Ordering Prov: N/A Interpretation Examination: Bone Density Study (DEXA) Clinical History: 58 year-old postmenopausal female withosteopenia. Monitor for osteoporosis. Findings: Lateral radiograph of the lumbar spine: No evidence of fracture. Comparison values to prior exams: Lumbar Spine (L 1-4 ) bone mineral density is 1.05 g/sq cm which corresponds to a T-score of -1.1. The prior spine bone mineraldensity on 04/07/2007 was 1.14 g/sq cm which represents a decrease of 0.093 g/sqcm or -8.2 %. Left femoral neck bone mineral density is 0.72 g/sq cm whichcorresponds to a T-score of -2.3. The prior femoral neck bone mineral density on04/07/2007 was 0.79 g/sq cm which represents a decrease of 0.061 g/sq cm or -7.8%. Right femoral neck bone mineral density is 0.70 g/sq cm whichcorresponds to a T-score of -2.5. Impressions: Lumbar spine: This patient's bone mineral density of the spine ismildly osteopenic which is normal for age when compared to the normal rangeof young adults and present fracture risk is considered to be low. Hips: This patient's bone mineral density of the hip is veryosteopenic when compared to the normal range of young adults and presentfracture risk is considered to be moderate. Comments: Substantial bone mineral loss since the examination from 2years ago. Detailed report to follow. . Dictated by: RADHA HEARD 04/19/2009 15:26 Electronically signed by: RADHA HEARD 04/19/2009 15:27 us Sylvia Pickering MD DIAGNOSTIC IMAGING ORDERABLES F inal Result documented in this encounter Visit Diagnoses Diagnosis Symptomatic menopausal or female climacteric states documented in this encounter Care Teams Lace Sewer Relationship Specialty Start Date End Date Jimmy Armando MD PCP - General Internal Medicine 03/06/23 documented as of this encounter
--- OUTSIDE RECORDS SUMMARY | 2025-03-04 12:02 | XMS_ITS | Encounter Summary ---
Author Organization [facility] Address [address] [place] [address] Care Team Providers Care Wireless Sales Associate Name Role Phone Jimmy Armando MD Primary Care Provider [phone] Encounter Details Date Type Department Care Team (Latest Contact Info) Description 04/01/2007 Outpatient Historical HIS [facility] Penny Fuller MD [address] [facility] [address] [place] [address] Unspecified Hypothyroidism (Primary Dx) Social History Tobacco Use Types Packs/Day Years Used Date Smoking Tobacco: Never Assessed Comments Unknown Sex and Gender Information Value Date Recorded Sex Assigned at Not on file Legal Sex Female 4:53 AM ESTATE CONSERVATOR Gender Identity Not on file Sexual Orientation Not on file documented as of this encounter Plan of Treatment Upcoming Encounters Date Type Department Care Team (Late st Contact Info) Description 03/08/2025 3:30 PM CDT Office Visit [facility] Oncology and Hematology - Luisito [address] [facility] [address] [place] [address] Antonio Deras MD [address] [facility] [address] [place] [address] documented as of this encounter Procedures Procedure Name Priority Date/Time Associated Diagnosis Comments TSH WITH REFLEX FT4 AND FT3 Routine 04/01/2007 11:12 AM CDT CBC WITHOUT DIFFERENTIAL Routine 04/01/2007 11:12 AM CDT LIPID PANEL Routine 04/01/2007 11:12 AM CDT COMPREHENSIVE METABOLIC PANEL Routine 04/01/2007 11:12 AM CDT documented in this encounter Results * TSH WITH REFLEX FT4 AND FT3 (04/01/2007 11:12 AM CDT) TSH 3.24 0.27 - 4.20 uU/mL INTERFACE SYSTEM 04/01/2007 11:1 2 AM CDT Penny Kan MD CHEMISTRY ORDERABLES Edited Performing Organization Address [facility] de Phone Number INTERFACE SYSTEM Refer to clinic/hospital department * (ABNORMAL) CBC WITHOUT DIFFERENTIAL (04/01/2007 11:12 AM CDT) WBC 5.2 4.0 - 9.8 K/uL INTERFACE SYSTEM RBC 4.36 3.90 - 4.90 M/uL INTERFACE SYSTEM HEMOGLOBIN 14.5 11.8 - 14.8 g/dL INTERFACE SYSTEM HEMATOCRIT 41.2 35.5 - 44.0 % INTERFACE SYSTEM MCV 94.5 82.0 - 99.0 fL INTERFACE SYSTEM MCH 33.3(H) 27.2 - 32.6 pg INTERFACE SYSTEM MCHC 35.2 31.5 - 35.5 % INTERFACE SYSTEM RDW 12.9 11.5 - 14.5 % INTERFACE SYSTEM RDW-STDEV 44.3 37.1 - 48.7 fL INTERFACE SYSTEM PLATELETS 184 140 - 350 K/uL INTERFACE SYSTEM MPV 10.7 9.3 - 12.4 fL INTERFACE SYSTEM 04/01/2007 11:1 2 AM CDT Penny Kan MD HEMATOLOGY ORDERABLES Edited Performing Organization Address [facility] Co de Phone Number INTERFACE SYSTEM Refer to clinic/hospital department * (ABNORMAL) LIPID PANEL (04/01/2007 11:12 AM CDT) CHOLESTEROL 205(H) 100 - 199 mg/dL INTERFACE SYSTEM TRIGLYCERIDE 88 10 - 149 mg/dL INTERFACE SYSTEM HDL 67(H) 40 - 59 mg/dL INTERFACE SYSTEM CHOL/HDL RATIO 3.1 2.0 - 5.0 INTER FACE SYSTEM LDL CALCULATED 120(H) <=99 mg/dL INTERFACE SYSTEM LIPID PANEL COMMENT See Below INTERFACE SYSTEM Comment: The adult ATP and pediatric NCEP classifications for lipids are available on the [facility] Intranet at: [email or web address] Select: Lab Policies and Procedures Select: Reference Ranges - Lipids 04/01/2007 11:1 2 AM CDT Penny Kan MD CHEMISTRY ORDERABLES Edited INTERFACE SYSTEM Refer to clinic/hospital department * COMPREHENSIVE METABOLIC PANEL (04/01/2007 11:12 AM CDT) GLUCOSE 90 65 - 99 mg/dL INTERFACE SYSTEM CREATININE 0.74 0.51 - 0.95 mg/dL INTERFACE SYSTEM CALCIUM 8.8 8.4 - 10.2 mg/dL INTERFACE SYSTEM ALKALINE PHOSPHATASE 57 35 - 104 U/L INTERFACE SYSTEM AST 19 12 - 32 U/L INTERFACE SYSTEM ALT 13 0 - 31 U/L INTERFACE SYSTEM TOTAL PROTEIN 7.0 6.3 - 8.6 g/dL INTERFACE SYSTEM ALBUMIN 4.0 3.4 - 4.8 g/dL INTERFACE SYSTEM BILIRUBIN TOTAL 0.7 0.2 - 1.0 mg/dL INTERFACE SYSTEM BUN 13 6 - 20 mg/dL INTERFACE SYSTEM SODIUM 138 135 - 145 mmol/L INTERFACE SYSTEM POTASSIUM 4.2 3.5 - 4.9 mmol/L INTERFACE SYSTEM CHLORIDE 101 96 - 108 mmol/L INTERFACE SYSTEM CO2 27 22 - 30 mmol/L INTERFACE SYSTEM GFR, >60 >=60 mL/min/1.7 sq meter INTERFACE SYSTEM GFR >60 >=60 mL/min/1.7 sq meter INTERFACE SYSTEM Comment: Estimated GFR rate interpretative information for both Americans and non- Americans is available on the [facility] Intranet at: [email or web address] Select: Lab Policies and Procedures Select: Reference Ranges - GFR 04/01/2007 11:1 2 AM CDT Penny Kan MD CHEMISTRY ORDERABLES Edited INTERFACE SYSTEM Refer to clinic/hospital department documented in this encounter Visit Diagnoses Diagnosis Unspecified hypothyroidism- Primary documented in this encounter Care Teams Wireless Sales Associate Relationship Specialty Start Date End Date Jimmy Armando MD PCP - General Internal Medicine 03/06/23 documented as of this encounter
--- OUTSIDE RECORDS SUMMARY | 2025-03-04 12:02 | XMS_ITS | Encounter Summary ---
Author Organization [facility] Address [address] [place] [address] Care Team Providers Care Hotel Or Motel Receptionist Name Role Phone Jimmy Armando MD Primary Care Provider [phone] Encounter Details Date Type Department Care Team (Latest Contact Info) Description 11/07/2006 Outpatient Historical HIS [facility] Penny Fuller MD [address] [facility] [address] [place] [address] Cervical Spondylosis without Myelopathy (Primary Dx) Social History Tobacco Use Types Packs/Day Years Used Date Smoking Tobacco: Never Assessed Comments Unknown Sex and Gender Information Value Date Recorded Sex Assigned at Not on file Legal Sex Female 4:53 AM UM RN Gender Identity Not on file Sexual Orientation Not on file documented as of this encounter Plan of Treatment Upcoming Encounters Date Type Department Care Team (Late st Contact Info) Description 03/08/2025 3:30 PM CDT Office Visit [facility] Oncology and Hematology - Luisito [address] [facility] [address] [place] [address] Antonio Deras MD [address] [facility] [address] [place] [address] documented as of this encounter Procedures Procedure Name Priority Date/Time Associated Diagnosis Comments TSH WITH REFLEX FT4 AND FT3 Routine 11/07/2006 4:20 PM UM RN documented in this encounter Results * TSH WITH REFLEX FT4 AND FT3 (11/07/2006 4:20 PM UM RN) TSH 2.24 0.27 - 4.20 uU/mL INTERFACE SYSTEM 11/07/2006 4:20 PM UM RN us Penny Kan MD CHEMISTRY ORDERABLES Edited INTERFACE SYSTEM Refer to clinic/hospital department documented in this encounter Visit Diagnoses Diagnosis Cervical spondylosis without myelopathy- Primary documented in this encounter Care Teams Hotel Or Motel Receptionist Relationship Specialty Start Date End Date Jimmy Armando MD PCP - General Internal Medicine 03/06/23 documented as of this encounter
--- OUTSIDE RECORDS SUMMARY | 2025-03-04 12:02 | XMS_ITS | Encounter Summary ---
Author Organization [facility] Address [address] [place] [address] Care Team Providers Care Heat Treater Head Name Role Phone Jimmy Armando MD Primary Care Provider [phone] Encounter Details Date Type Department Care Team (Latest Contact Info) Description 04/30/2006 Outpatient Historical [facility], [address] Grant Jacobs MD [address] [place] [address] Dermatophytosis of Nail (Primary Dx) Social History Tobacco Use Types Packs/Day Years Used Date Smoking Tobacco: Never Assessed Comments Unknown Sex and Gender Information Value Date Recorded Sex Assigned at Not on file Legal Sex Female 4:53 AM SUPERVISOR INSPECTION ROOM Gender Identity Not on file Sexual Orientation Not on file documented as of this encounter Plan of Treatment Upcoming Encounters Date Type Department Care Team (Late st Contact Info) Description 03/08/2025 3:30 PM CDT Office Visit [facility] Oncology and Hematology - [place] [address] [place] [address] [address] [place] [address] Antonio Deras MD [address] [facility] [address] [place] [address] documented as of this encounter Visit Diagnoses Diagnosis Dermatophytosis of nail- Primary documented in this encounter Care Teams Heat Treater Head Relationship Specialty Start Date End Date Jimmy Armando MD PCP - General Internal Medicine 03/06/23 documented as of this encounter
--- OUTSIDE RECORDS SUMMARY | 2025-03-04 12:02 | XMS_ITS | Encounter Summary ---
Author Organization [facility] Address [address] [place] [address] Care Team Providers Care Softball Player Name Role Phone Jimmy Armando MD Primary Care Provider [phone] Encounter Details Date Type Department Care Team (Latest Contact Info) Description 12/17/2004 Outpatient Historical [facility] [address] [place] [address] OSTEOPOROSIS NOS (Primary Dx) Social History Tobacco Use Types Packs/Day Years Used Date Smoking Tobacco: Never Assessed Comments Unknown Sex and Gender Information Value Date Recorded Sex Assigned at Not on file Legal Sex Female 4:53 AM CRIBBER Gender Identity Not on file Sexual Orientation Not on file documented as of this encounter Plan of Treatment Upcoming Encounters Date Type Department Care Team (Late st Contact Info) Description 03/08/2025 3:30 PM CDT Office Visit [facility] Oncology and Hematology - Luisito [address] [facility] [address] [place] [address] Antonio Deras MD [address] [facility] [address] [place] [address] documented as of this encounter Visit Diagnoses Diagnosis Osteoporosis, unspecified- Primary documented in this encounter Care Teams Softball Player Relationship Specialty Start Date End Date Jimmy Armando MD PCP - General Internal Medicine 03/06/23 documented as of this encounter
--- OUTSIDE RECORDS SUMMARY | 2025-03-04 12:02 | XMS_ITS | Encounter Summary ---
Author Organization [facility] Address [address] [place] [address] Care Team Providers Care Sustainable Design Consultant Name Role Phone Jimmy Armando MD Primary Care Provider [phone] Encounter Details Date Type Department Care Team (Late st Contact Info) Description 05/15/2007 Outpatient Historical [facility] [place] [address] [place] [address] Abn Findings- Organs (Primary Dx) Social History Tobacco Use Types Packs/Day Years Used Date Smoking Tobacco: Never Assessed Comments Unknown Sex and Gender Information Value Date Recorded Sex Assigned at Not on file Legal Sex Female 4:53 AM PARKING WORKER Gender Identity Not on file Sexual Orientation Not on file documented as of this encounter Plan of Treatment Upcoming Encounters Date Type Department Care Team (Late Contact Info) Description 03/08/2025 3:30 PM CDT Office Visit [facility] Oncology and Hematology - Luisito [address] [address] [place] [address] Antonio Deras MD [address] [facility] [address] [place] [address] documented as of this encounter Visit Diagnoses Diagnosis Nonspecific (abnormal) findings on radiological and other examination of genitourinary organs- Primary documented in this encounter Care Teams Sustainable Design Consultant Relationship Specialty Start Date End Date Jimmy Armando MD PCP - General Internal Medicine 03/06/23 documented as of this encounter
--- OUTSIDE RECORDS SUMMARY | 2025-03-04 12:02 | XMS_ITS | Encounter Summary ---
Author Organization [facility] Address [address] [place] [address] Care Team Providers Care Tobacco Wetter Name Role Phone Jimmy Armando MD Primary Care Provider [phone] Encounter Details Date Type Department Care Team (Latest Contact Info) Description 03/19/2006 Outpatient Historical HIS [facility] [place] [address] [place] [address] Other Screening Mammogram (Primary Dx) Social History Tobacco Use Types Packs/Day Years Used Date Smoking Tobacco: Never Assessed Comments Unknown Sex and Gender Information Value Date Recorded Sex Assigned at Not on file Legal Sex Female 4:53 AM TESTER COMPRESSED GASES Gender Identity Not on file Sexual Orientation Not on file documented as of this encounter Plan of Treatment Upcoming Encounters Date Type Department Care Team (Late st Contact Info) Description 03/08/2025 3:30 PM CDT Office Visit [facility] Oncology and Hematology - Luisito [address] [facility] [address] [place] [address] Antonio Deras MD [address] [facility] [address] [place] [address] documented as of this encounter Visit Diagnoses Diagnosis Other screening mammogram- Primary documented in this encounter Care Teams Tobacco Wetter Relationship Specialty Start Date End Date Jimmy Armando MD PCP - General Internal Medicine 03/06/23 documented as of this encounter
--- OUTSIDE RECORDS SUMMARY | 2025-03-04 12:02 | XMS_ITS | Clinical Summary ---
Author Organization [facility] Address [address] [place] [address] Care Team Providers Care Utility Pipe Layer Name Role Phone Unavailable Primary Care Provider Unavailabl e Source Comments [facility],non-owned Affiliates and Associated Physician Practices is amultiple site organization consisting of ambulatory clinics and hospital sitesin [place], [place], [place] and [place]. This disclosure is being madepursuant to the Care Everywhere program and may not contain all information available regarding this patient. Last updated 18.[facility] Social History Tobacco Use Types Packs/Day Years Used Date Smoking Tobacco: Never Assessed Comments Unknown Sex and Gender Information Value Date Recorded Sex Assigned at Not on file Legal Sex Female 4:34 PM CDT Gender Identity Not on file Sexual Orientation Not on file Plan of Treatment Health Maintenance Due Date Last Done Comments BONE DENSITY TESTING 1950 MEDICARE AWV 12 MONTHS 1950 HEPATITIS C SCREENING 12/02/1966 DTAP/TDAP/TD VACCINES (1 - Tdap) 1967 PNEUMOCOCCAL VACCINE 50+ (1 of 1 - PCV) 1998 ZOSTER VACCINE (1 of 2) 1998 Respiratory Syncytial Virus (RSV) Vaccine Pt: or over 60 yrs (1 - 1-dose 75+ series) 2023 COVID-19 VACCINE ( - 2023-2 5 season) 2024 DEPRESSION SCREENING 10/20/2024 INFLUENZA VACCINE (Season Ended) 2025 HEPATITIS B VACCINE Aged Out No longe r eligible based on patient's age to complete this topic HIB VACCINE Aged Out No longer eligi ble based on patient's age to complete this topic HPV VACCINE Aged Out No longer eligi ble based on patient's age to complete this topic MENINGOCOCCAL (Group B) VACC INE SHARED DECISION-MAKING Aged Out No longer eligibl e based on patient's age to complete this topic MENINGOCOCCAL GROUPS A/C/Y/W VACCINE Aged Out No longer eligible b ased on patient's age to complete this topic Insurance MEDICARE
--- OUTSIDE RECORDS SUMMARY | 2025-03-04 12:02 | XMS_ITS | Encounter Summary ---
Author Organization [facility] Address [address] [place] [address] Care Team Providers Care Health Administrator Name Role Phone Jimmy Armando MD Primary Care Provider [phone] Encounter Details Date Type Department Care Team (Late st Contact Info) Description 10/24/2006 Outpatient [facility] [address] [place] [address]. [place], [place] [id number] Alyson Cheung MD Social History Tobacco Use Types Packs/Day Years Used Date Smoking Tobacco: Never Assessed Comments Unknown Sex and Gender Information Value Date Recorded Sex Assigned at Not on file Legal Sex Female 4:53 AM RUBBER TURNER Gender Identity Not on file Sexual Orientation Not on file documented as of this encounter Plan of Treatment Upcoming Encounters Date Type Department Care Team (Late st Contact Info) Description 03/08/2025 3:30 PM CDT Office Visit [facility] Oncology and Hematology - [place] [address] [place] [address] 200 [place] [address] Antonio Deras MD [address] [facility] [address] [place] [address] documented as of this encounter Visit Diagnoses Not on filedocumented in this encounter Care Teams Health Administrator Relationship Specialty Start Date End Date Jimmy Armando MD PCP - General Internal Medicine 03/06/23 documented as of this encounter
--- OUTSIDE RECORDS SUMMARY | 2025-03-04 12:02 | XMS_ITS | Encounter Summary ---
Author Organization [facility] Address [address] [place] [address] Care Team Providers Care Diagnostic Cardiac Sonographer Name Role Phone Jimmy Armando MD Primary Care Provider [phone] Encounter Details Date Type Department Care Team (Latest Contact Info) Description 06/25/2007 Outpatient Historical [facility] [place] [address] [place] [address] Polyp of Corpus Uteri (Primary Dx) Social History Tobacco Use Types Packs/Day Years Used Date Smoking Tobacco: Never Assessed Comments Unknown Sex and Gender Information Value Date Recorded Sex Assigned at Not on file Legal Sex Female 4:53 AM WORKFORCE DEVELOPMENT VICE PRESIDENT Gender Identity Not on file Sexual Orientation Not on file documented as of this encounter Plan of Treatment Upcoming Encounters Date Type Department Care Team (Late st Contact Info) Description 03/08/2025 3:30 PM CDT Office Visit [facility] Oncology and Hematology - Luisito [address] [facility] [address] [place] [address] Antonio Deras MD [address] [facility] [address] [place] [address] documented as of this encounter Procedures Procedure Name Priority Date/Time Associated Diagnosis Comments POC , URINE Routine 06/25/2007 12:15 PM CDT HEMOGLOBIN AND HEMATOCRIT Routine 06/09/2007 12:11 PM CDT documented in this encounter Results * POC , URINE (06/25/2007 12:15 PM CDT) , URINE POC Negative Negative INTERFACE SYSTEM 06/25/2007 12:1 5 PM CDT Result [facility] Omaira Montgomery MD POINT OF CARE TESTING Edited Performing Organization Address [facility] Phone Number INTERFACE SYSTEM Refer to clinic/hospital department * (ABNORMAL) HEMOGLOBIN AND HEMATOCRIT (06/09/2007 12:11 PM CDT) HEMOGLOBIN 15.2(H) 11.8 - 14.8 g/dL INTERFACE SYSTEM HEMATOCRIT 42.6 35.5 - 44.0 % INTERFACE SYSTEM 06/09/2007 12:1 1 PM CDT Omaira Montgomery MD HEMATOLOGY ORDERABLES Edited Performing Organization Address [facility] Phone Number INTERFACE SYSTEM Refer to clinic/hospital department documented in this encounter Visit Diagnoses Diagnosis Polyp of corpus uteri- Primary documented in this encounter Care Teams Diagnostic Cardiac Sonographer Relationship Specialty Start Date End Date Jimmy Armando MD PCP - General Internal Medicine 03/06/23 documented as of this encounter
--- OUTSIDE RECORDS SUMMARY | 2025-03-04 12:02 | XMS_ITS | Encounter Summary ---
Author Organization [facility] Address [address] [place] [address] Care Team Providers Care Dynamometer Tuner Name Role Phone Jimmy Armando MD Primary Care Provider [phone] Encounter Details Date Type Department Care Team (Late st Contact Info) Description 11/07/2006 Outpatient Historical [facility] [address] 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 Gender Identity Not on file Sexual Orientation Not on file documented as of this encounter Plan of Treatment Upcoming Encounters Date Type Department Care Team (Late st Contact Info) Description 03/08/2025 3:30 PM CDT Office Visit [facility] Oncology and Hematology - Luisito [address] [facility] 200 [place] [address] Antonio Deras MD [address] [facility] [address] [place] [address] documented as of this encounter Visit Diagnoses Not on filedocumented in this encounter Care Teams Dynamometer Tuner Relationship Specialty Start Date End Date Jimmy Armando MD PCP - General Internal Medicine 03/06/23 documented as of this encounter
--- OUTSIDE RECORDS SUMMARY | 2025-03-04 12:02 | XMS_ITS | Encounter Summary ---
Author Organization [facility] Address 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 Gender Identity Not on file Sexual Orientation Not on file documented as of this encounter Plan of Treatment Upcoming Encounters Date Type Department Care Team (Late Contact Info) Description 03/08/2025 3:30 PM CDT Office Visit [facility] Oncology and Hematology - [place] [address] [place] [address] [address] [place] [address] Antonio Deras MD [address] [facility] [address] [place] [address] documented as of this encounter Visit Diagnoses Diagnosis Unspecified hearing loss documented in this encounter Care Teams Band Tacker Relationship Specialty Start Date End Date Jimmy Armando MD PCP - General Internal Medicine 03/06/23 documented as of this encounter
--- OUTSIDE RECORDS SUMMARY | 2025-03-04 12:02 | XMS_ITS | Encounter Summary ---
Author Organization [facility] Address [address] [place] [address] Care Team Providers Care Denitrator Operator Name Role Phone Jimmy Armando MD Primary Care Provider [phone] Encounter Details Date Type Department Care Team (Late st Contact Info) Description 06/04/2006 Outpatient Historical [facility] [address] [facility] [address] [address] Penny Kan MD [address] [facility] [address] [place] [address] Social History Tobacco Use Types Packs/Day Years Used Date Smoking Tobacco: Never Assessed Comments Unknown Sex and Gender Information Value Date Recorded Sex Assigned at Not on file Legal Sex Female 4:53 AM SCAFFOLD BUILDER Gender Identity Not on file Sexual Orientation Not on file documented as of this encounter Plan of Treatment Upcoming Encounters Date Type Department Care Team (Late st Contact Info) Description 03/08/2025 3:30 PM CDT Office Visit [facility] Oncology and Hematology - Luisito [address] [facility] [address] [place] [address] Antonio Deras MD [address] [facility] [address] [place] [address] documented as of this encounter Visit Diagnoses Not on filedocumented in this encounter Care Teams Denitrator Operator Relationship Specialty Start Date End Date Jimmy Armando MD PCP - General Internal Medicine 03/06/23 documented as of this encounter
--- OUTSIDE RECORDS SUMMARY | 2025-03-04 12:02 | XMS_ITS | Encounter Summary ---
Author Organization [facility] Address [address] [place] [address] Care Team Providers Care Rug Setter Axminster Name Role Phone Jimmy Armando MD Primary Care Provider [phone] Encounter Details Date Type Department Care Team (Late st Contact Info) Description 02/10/2007 Outpatient Historical [facility] AUDI[facility] Penny Kan MD [address] [facility] [address] [place] [address] Fitting and Adjustment of Hearing Aid (Primary Dx) Social History Tobacco Use Types Packs/Day Years Used Date Smoking Tobacco: Never Assessed Comments Unknown Sex and Gender Information Value Date Recorded Sex Assigned at Not on file Legal Sex Female 4:53 AM MANAGER OF PROCUREMENT Gender Identity Not on file Sexual Orientation Not on file documented as of this encounter Plan of Treatment Upcoming Encounters Date Type Department Care Team (Late st Contact Info) Description 03/08/2025 3:30 PM CDT Office Visit [facility] Oncology and Hematology - Luis[place] [address] [facility] [address] [place] [address] Antonio Deras MD [address] [facility] [address] [place] [address] documented as of this encounter Visit Diagnoses Diagnosis Fitting and adjustment of hearing aid- Primary documented in this encounter Care Teams Rug Setter Axminster Relationship Specialty Start Date End Date Jimmy Armando MD PCP - General Internal Medicine 03/06/23 documented as of this encounter
--- OUTSIDE RECORDS SUMMARY | 2025-03-04 12:02 | XMS_ITS | Encounter Summary ---
Author Organization [facility] Address [address] [place] [address] Care Team Providers Care Soap Drier Operator Name Role Phone Jimmy Armando MD Primary Care Provider [phone] Encounter Details Date Type Department Care Team (Latest Contact Info) Description 06/26/2004 Outpatient Historical [facility], [address] [place] [address] [place] [address] GYNECOLOGIC EXAMINATION (Primary Dx) Social History Tobacco Use Types Packs/Day Years Used Date Smoking Tobacco: Never Assessed Comments Unknown Sex and Gender Information Value Date Recorded Sex Assigned at Not on file Legal Sex Female 4:53 AM EAR NOSE AND THROAT SPECIALIST Gender Identity Not on file Sexual Orientation Not on file documented as of this encounter Plan of Treatment Upcoming Encounters Date Type Department Care Team (Late st Contact Info) Description 03/08/2025 3:30 PM CDT Office Visit [facility] Oncology and Hematology - [place] [address] [place] [address] [address] [place] [address] Antonio Deras MD [address] [facility] [address] [place] [address] documented as of this encounter Visit Diagnoses Diagnosis Gynecological examination- Primary documented in this encounter Care Teams Soap Drier Operator Relationship Specialty Start Date End Date Jimmy Armando MD PCP - General Internal Medicine 03/06/23 documented as of this encounter
--- OUTSIDE RECORDS SUMMARY | 2025-03-04 12:02 | XMS_ITS | Encounter Summary ---
Author Organization [facility] Address [address] [place] [address] Care Team Providers Care Family Assistant Name Role Phone Jimmy Armando MD Primary Care Provider Encounter Details Date Type Department Care Team (Late Contact Info) Description 07/11/2005 Outpatient Historical [place] [address] [place] [address] FEMALE GENITAL SYMPTOMS NOS (Primary Dx) Social History Tobacco Use Types Packs/Day Years Used Date Smoking Tobacco: Never Assessed Comments Unknown Sex and Gender Information Value Date Recorded Sex Assigned at Not on file Legal Sex Female 4:53 AM ZIGZAG STITCHER Gender Identity Not on file Sexual Orientation Not on file documented as of this encounter Plan of Treatment Upcoming Encounters Date Type Department Care Team (Late Contact Info) Description 03/08/2025 3:30 PM CDT Office Visit [facility] Oncology and Hematology - [place] [address] [facility] [address] [place] [address] Antonio Deras MD [address] [facility] [address] [place] [address] documented as of this encounter Visit Diagnoses Diagnosis Unspecified symptom associated with female genital organs- Primary documented in this encounter Care Teams Family Assistant Relationship Specialty Start Date End Date Jimmy Armando MD PCP - General Internal Medicine 03/06/23 documented as of this encounter
--- OUTSIDE RECORDS SUMMARY | 2025-03-04 12:02 | XMS_ITS | Encounter Summary ---
Author Organization [facility] Address [address] [place] [address] Care Team Providers Care Websphere Message Broker Developer Name Role Phone Jimmy Armando MD Primary Care Provider [phone] Encounter Details Date Type Department Care Team (Late st Contact Info) Description 03/03/2007 Outpatient [facility] [address] [place] [address]. [place], [place] [id number] Alyson Cheung MD Social History Tobacco Use Types Packs/Day Years Used Date Smoking Tobacco: Never Assessed Comments Unknown Sex and Gender Information Value Date Recorded Sex Assigned at Not on file Legal Sex Female 4:53 AM SALESPERSON MEN'S HATS Gender Identity Not on file Sexual Orientation Not on file documented as of this encounter Plan of Treatment Upcoming Encounters Date Type Department Care Team (Late st Contact Info) Description 03/08/2025 3:30 PM CDT Office Visit [facility] Oncology and Hematology - [place] [address] [place] [address] 200 [place] [address] Antonio Deras MD [address] [facility] [address] [place] [address] documented as of this encounter Visit Diagnoses Not on filedocumented in this encounter Care Teams Websphere Message Broker Developer Relationship Specialty Start Date End Date Jimmy Armando MD PCP - General Internal Medicine 03/06/23 documented as of this encounter
--- OUTSIDE RECORDS SUMMARY | 2025-03-04 12:02 | XMS_ITS | Encounter Summary ---
Author Organization [facility] Address [address] [place] [address] Care Team Providers Care Last Repairer Name Role Phone Jimmy Armando MD Primary Care Provider [phone] Encounter Details Date Type Department Care Team (Latest Contact Info) Description 11/22/2002 Outpatient Historical HIS [facility] [address] [place] [address] SCREENING MAMM-MAILG NEOPL-OTHER (Primary Dx) Social History Tobacco Use Types Packs/Day Years Used Date Smoking Tobacco: Never Assessed Comments Unknown Sex and Gender Information Value Date Recorded Sex Assigned at Not on file Legal Sex Female 4:53 AM POLITICAL CONSULTANT Gender Identity Not on file Sexual Orientation Not on file documented as of this encounter Plan of Treatment Upcoming Encounters Date Type Department Care Team (Late st Contact Info) Description 03/08/2025 3:30 PM CDT Office Visit [facility] Oncology and Hematology - [place] [address] [facility] [address] [place] [address] Antonio Deras MD [address] [facility] [address] [place] [address] documented as of this encounter Visit Diagnoses Diagnosis Other screening mammogram- Primary documented in this encounter Care Teams Last Repairer Relationship Specialty Start Date End Date Jimmy Armando MD PCP - General Internal Medicine 03/06/23 documented as of this encounter
--- OUTSIDE RECORDS SUMMARY | 2025-03-04 12:02 | XMS_ITS | Encounter Summary ---
Author Organization [facility] Address [address] [place] [address] Care Team Providers Care Cigarette Seller Name Role Phone Jimmy Armando MD Primary Care Provider [phone] Encounter Details Date Type Department Care Team (Latest Contact Info) Description 12/26/2003 Outpatient Historical HIS [facility] [place] [place] [address] [place] [address] UNSP ABNORMAL MAMMOGRAM (Primary Dx) Social History Tobacco Use Types Packs/Day Years Used Date Smoking Tobacco: Never Assessed Comments Unknown Sex and Gender Information Value Date Recorded Sex Assigned at Not on file Legal Sex Female 4:53 AM MAINTENANCE TECHNICIAN 2ND SHIFT Gender Identity Not on file Sexual Orientation Not on file documented as of this encounter Plan of Treatment Upcoming Encounters Date Type Department Care Team (Late st Contact Info) Description 03/08/2025 3:30 PM CDT Office Visit [facility] Oncology and Hematology - [place] [address] [facility] [address] [place] [address] Antonio Deras MD [address] [facility] [address] [place] [address] documented as of this encounter Visit Diagnoses Diagnosis Abnormal mammogram, unspecified- Primary documented in this encounter Care Teams Cigarette Seller Relationship Specialty Start Date End Date Jimmy Armando MD PCP - General Internal Medicine 03/06/23 documented as of this encounter
--- OUTSIDE RECORDS SUMMARY | 2025-03-04 12:02 | XMS_ITS | Encounter Summary ---
Author Organization [facility] Address [address] [place] [address] Care Team Providers Care Explosive Operator Supervisor Name Role Phone Jimmy Armando MD Primary Care Provider [phone] Encounter Details Date Type Department Care Team (Late st Contact Info) Description 07/28/2007 Outpatient Historical [facility] Geriatrics [address] [facility] [address] [address] Penny Kan MD [address] [facility] [address] [place] [address] Social History Tobacco Use Types Packs/Day Years Used Date Smoking Tobacco: Never Assessed Comments Unknown Sex and Gender Information Value Date Recorded Sex Assigned at Not on file Legal Sex Female 4:53 AM SOLVENT RECOVERER Gender Identity Not on file Sexual Orientation Not on file documented as of this encounter Plan of Treatment Upcoming Encounters Date Type Department Care Team (Late st Contact Info) Description 03/08/2025 3:30 PM CDT Office Visit [facility] Oncology and Hematology - Luis[place] [address] [facility] 200 [place] [address] Antonio Deras MD [address] [facility] [address] [place] [address] documented as of this encounter Visit Diagnoses Not on filedocumented in this encounter Care Teams Explosive Operator Supervisor Relationship Specialty Start Date End Date Jimmy Armando MD PCP - General Internal Medicine 03/06/23 documented as of this encounter
--- OUTSIDE RECORDS SUMMARY | 2025-03-04 12:02 | XMS_ITS | Encounter Summary ---
Author Organization [facility] Address [address] [place] [address] Care Team Providers Care Target Aircraft Technician Name Role Phone Jimmy Armando MD Primary Care Provider [phone] Encounter Details Date Type Department Care Team (Late st Contact Info) Description 11/24/2006 Outpatient [facility] [address] [place] [address]. [place], [place] [id number] Alyson Cheung MD Social History Tobacco Use Types Packs/Day Years Used Date Smoking Tobacco: Never Assessed Comments Unknown Sex and Gender Information Value Date Recorded Sex Assigned at Not on file Legal Sex Female 4:53 AM FURNACE STOCK INSPECTOR Gender Identity Not on file Sexual Orientation Not on file documented as of this encounter Plan of Treatment Upcoming Encounters Date Type Department Care Team (Late st Contact Info) Description 03/08/2025 3:30 PM CDT Office Visit [facility] Oncology and Hematology - [place] [address] [place] [address] 200 [place] [address] Antonio Deras MD [address] [facility] [address] [place] [address] documented as of this encounter Visit Diagnoses Not on filedocumented in this encounter Care Teams Target Aircraft Technician Relationship Specialty Start Date End Date Jimmy Armando MD PCP - General Internal Medicine 03/06/23 documented as of this encounter
--- OUTSIDE RECORDS SUMMARY | 2025-03-04 12:02 | XMS_ITS | Encounter Summary ---
Author Organization [facility] Address [address] [place] [address] Care Team Providers Care Automatic Transmission Mechanic Name Role Phone Jimmy Armando MD Primary Care Provider Encounter Details Date Type Department Care Team (Late Contact Info) Description 04/04/2005 Outpatient Historical [facility] AUDIOLOGY Conversion, History ADJUSTMENT HEARING AID (Primary Dx) Social History Tobacco Use Types Packs/Day Years Used Date Smoking Tobacco: Never Assessed Comments Unknown Sex and Gender Information Value Date Recorded Sex Assigned at Not on file Legal Sex Female 4:53 AM DINING ROOM TABLES SET UP ATTENDANT Gender Identity Not on file Sexual Orientation Not on file documented as of this encounter Plan of Treatment Upcoming Encounters Date Type Department Care Team (Late Contact Info) Description 03/08/2025 3:30 PM CDT Office Visit [facility] Oncology and Hematology - [place] [address] [place] [address] [facility] [address] [place] [phone] Antonio Deras MD [address] [facility] [address] [place] [address] documented as of this encounter Visit Diagnoses Diagnosis Fitting and adjustment of hearing aid- Primary documented in this encounter Care Teams Automatic Transmission Mechanic Relationship Specialty Start Date End Date Jimmy Armando MD PCP - General Internal Medicine 03/06/23 documented as of this encounter
--- OUTSIDE RECORDS SUMMARY | 2025-03-04 12:02 | XMS_ITS | Encounter Summary ---
Author Organization [facility] Address [address] [place] [address] Care Team Providers Care Clinical Director Name Role Phone Jimmy Armando MD Primary Care Provider [phone] Encounter Details Date Type Department Care Team (Latest Contact Info) Description 03/04/2006 Outpatient Historical [facility], [address] Grant Jacobs MD [address] [place] [address] Dermatophytosis of Nail (Primary Dx) Social History Tobacco Use Types Packs/Day Years Used Date Smoking Tobacco: Never Assessed Comments Unknown Sex and Gender Information Value Date Recorded Sex Assigned at Not on file Legal Sex Female 4:53 AM LITERACY EDUCATION PROFESSOR Gender Identity Not on file Sexual Orientation Not on file documented as of this encounter Plan of Treatment Upcoming Encounters Date Type Department Care Team (Late st Contact Info) Description 03/08/2025 3:30 PM CDT Office Visit [facility] Oncology and Hematology - [place] [address] [place] [address] 200 [place] [address] Antonio Deras MD [address] [facility] [address] [place] [address] documented as of this encounter Visit Diagnoses Diagnosis Dermatophytosis of nail- Primary documented in this encounter Care Teams Clinical Director Relationship Specialty Start Date End Date Jimmy Armando MD PCP - General Internal Medicine 03/06/23 documented as of this encounter
--- OUTSIDE RECORDS SUMMARY | 2025-03-04 12:02 | XMS_ITS | Encounter Summary ---
Author Organization [facility] Address [address] [place] [address] Care Team Providers Care Log Yard Manager Name Role Phone Jimmy Armando MD Primary Care Provider Encounter Details Date Type Department Care Team (Latest Contact Info) Description 06/04/2006 Outpatient Historical HIS [facility] Penny Fuller MD [address] [facility] [address] [place] [address] Unspecified Hypothyroidism (Primary Dx) Social History Tobacco Use Types Packs/Day Years Used Date Smoking Tobacco: Never Assessed Comments Unknown Sex and Gender Information Value Date Recorded Sex Assigned at Not on file Legal Sex Female 4:53 AM BYPRODUCTS EXTRACTOR Gender Identity Not on file Sexual Orientation Not on file documented as of this encounter Plan of Treatment Upcoming Encounters Date Type Department Care Team (Late st Contact Info) Description 03/08/2025 3:30 PM CDT Office Visit [facility] Oncology and Hematology - Luis[place] [address] [facility] 200 [place] [address] Antonio Deras MD [address] [facility] [address] [place] [address] documented as of this encounter Procedures Procedure Name Priority Date/Time Associated Diagnosis Comments TSH REFLEXIVE Routine 06/04/2006 12:12 PM CDT T3 FREE Routine 06/04/2006 12:12 PM CDT T4 FREE Routine 06/04/2006 12:12 PM CDT documented in this encounter Results * (ABNORMAL) T3 FREE (06/04/2006 12:12 PM CDT) T3 FREE 4.8(H) 2.5 - 4.4 pg/mL INTERFACE SYSTEM 06/04/2006 12:1 2 PM CDT Penny Kan MD CHEMISTRY ORDERABLES Final Resu lt Performing Organization Address [facility] Phone Number INTERFACE SYSTEM Refer to clinic/hospital department * T4 FREE (06/04/2006 12:12 PM CDT) T4 FREE 0.9 0.9 - 1.7 ng/dL INTERFACE SYSTEM 06/04/2006 12:1 2 PM CDT Penny Kan MD CHEMISTRY ORDERABLES Final Resu lt Performing Organization Address [facility] Phone Number INTERFACE SYSTEM Refer to clinic/hospital department * (ABNORMAL) TSH REFLEXIVE (06/04/2006 12:12 PM CDT) TSH 0.04(L) 0.27 - 4.20 uU/mL INTERFACE SYSTEM 06/04/2006 12:1 2 PM CDT Penny Kan MD CHEMISTRY ORDERABLES Final Resu lt Performing Organization Address [facility] Phone Number INTERFACE SYSTEM Refer to clinic/hospital department documented in this encounter Visit Diagnoses Diagnosis Unspecified hypothyroidism- Primary documented in this encounter Care Teams Log Yard Manager Relationship Specialty Start Date End Date Jimmy Armando MD PCP - General Internal Medicine 03/06/23 documented as of this encounter
--- OUTSIDE RECORDS SUMMARY | 2025-03-04 12:02 | XMS_ITS | Encounter Summary ---
Author Organization [facility] Address [address] [place] [address] Care Team Providers Care Utility Clerk Name Role Phone Jimmy Armando MD Primary Care Provider [phone] Encounter Details Date Type Department Care Team (Late st Contact Info) Description 02/27/2007 Outpatient Historical [facility] Geriatrics [address] [facility] [address] [address] Penny Kan MD [address] [facility] [address] [place] [address] Social History Tobacco Use Types Packs/Day Years Used Date Smoking Tobacco: Never Assessed Comments Unknown Sex and Gender Information Value Date Recorded Sex Assigned at Not on file Legal Sex Female 4:53 AM DOG BEHAVIORIST Gender Identity Not on file Sexual Orientation Not on file documented as of this encounter Plan of Treatment Upcoming Encounters Date Type Department Care Team (Late st Contact Info) Description 03/08/2025 3:30 PM CDT Office Visit [facility] Oncology and Hematology - Luis[place] [address] [facility] [address] [place] [address] Antonio Deras MD [address] [facility] [address] [place] [address] documented as of this encounter Visit Diagnoses Not on filedocumented in this encounter Care Teams Utility Clerk Relationship Specialty Start Date End Date Jimmy Armando MD PCP - General Internal Medicine 03/06/23 documented as of this encounter
--- OUTSIDE RECORDS SUMMARY | 2025-03-04 12:02 | XMS_ITS | Encounter Summary ---
Author Organization [facility] Address [address] [place] [address] Care Team Providers Care Associate Professor Of Geology Name Role Phone Jimmy Armando MD Primary Care Provider [phone] Encounter Details Date Type Department Care Team (Latest Contact Info) Description 09/09/2006 Outpatient Historical HIS [facility] Penny Fuller MD [address] [facility] [address] [place] [address] Other Malaise and Fatigue (Primary Dx) Social History Tobacco Use Types Packs/Day Years Used Date Smoking Tobacco: Never Assessed Comments Unknown Sex and Gender Information Value Date Recorded Sex Assigned at Not on file Legal Sex Female 4:53 AM BARREL INSPECTOR Gender Identity Not on file Sexual Orientation Not on file documented as of this encounter Plan of Treatment Upcoming Encounters Date Type Department Care Team (Late st Contact Info) Description 03/08/2025 3:30 PM CDT Office Visit [facility] Oncology and Hematology - Luisito [address] [facility] [address] [place] [address] Antonio Deras MD [address] [facility] [address] [place] [address] documented as of this encounter Procedures Procedure Name Priority Date/Time Associated Diagnosis Comments SEDIMENTATION RATE Routine 09/09/2006 2: 59 PM BARREL INSPECTOR CBC WITHOUT DIFFERENTIAL Routine 09/09/2006 2:59 PM BARREL INSPECTOR COMPREHENSIVE METABOLIC PANEL Routine 09/09/2006 2:59 PM BARREL INSPECTOR documented in this encounter Results * SEDIMENTATION RATE (09/09/2006 2:59 PM BARREL INSPECTOR) ESR (SEDIMENTATION RATE) 18 0 - 30 mm/hr INTERFACE SYSTEM 09/09/2006 2:59 PM BARREL INSPECTOR Penny Kan MD HEMATOLOGY ORDERABLES Final Res ult Performing Organization Address [facility] de Phone Number INTERFACE SYSTEM Refer to clinic/hospital department * (ABNORMAL) CBC WITHOUT DIFFERENTIAL (09/09/2006 2:59 PM BARREL INSPECTOR) WBC 9.0 4.0 - 9.8 K/uL INTERFACE SYSTEM RBC 4.46 3.90 - 4.90 M/uL INTERFACE SYSTEM HEMOGLOBIN 14.6 11.8 - 14.8 g/dL INTERFACE SYSTEM HEMATOCRIT 41.5 35.5 - 44.0 % INTERFACE SYSTEM MCV 93.0 82.0 - 99.0 fL INTERFACE SYSTEM MCH 32.7(H) 27.2 - 32.6 pg INTERFACE SYSTEM MCHC 35.2 31.5 - 35.5 % INTERFACE SYSTEM RDW 13.2 11.5 - 14.5 % INTERFACE SYSTEM RDW-STDEV 45.3 37.1 - 48.7 fL INTERFACE SYSTEM PLATELETS 226 140 - 350 K/uL INTERFACE SYSTEM MPV 10.5 9.3 - 12.4 fL INTERFACE SYSTEM 09/09/2006 2:59 PM BARREL INSPECTOR Penny Kan MD HEMATOLOGY ORDERABLES Final Res ult Performing Organization Address [facility] Co de Phone Number INTERFACE SYSTEM Refer to clinic/hospital department * (ABNORMAL) COMPREHENSIVE METABOLIC PANEL (09/09/2006 2:59 PM BARREL INSPECTOR) GLUCOSE 99 65 - 99 mg/dL INTERFACE SYSTEM CREATININE 0.62 0.51 - 0.95 mg/dL INTERFACE SYSTEM Comment:Note: Effective 08/20 New Methodolgy and Reference Ranges CALCIUM 9.9 8.4 - 10.2 mg/dL INTERFACE SYSTEM ALKALINE PHOSPHATASE 71 35 - 104 U/L INTERFACE SYSTEM AST 22 12 - 32 U/L INTERFACE SYSTEM ALT 18 0 - 31 U/L INTERFACE SYSTEM TOTAL PROTEIN 7.1 6.3 - 8.6 g/dL INTERFACE SYSTEM ALBUMIN 4.2 3.4 - 4.8 g/dL INTERFACE SYSTEM BILIRUBIN TOTAL 0.3 0.2 - 1.0 mg/dL INTERFACE SYSTEM BUN 15 6 - 20 mg/dL INTERFACE SYSTEM SODIUM 141 135 - 145 mmol/L INTERFACE SYSTEM POTASSIUM 3.6 3.5 - 4.9 mmol/L INTERFACE SYSTEM CHLORIDE 103 96 - 108 mmol/L INTERFACE SYSTEM CO2 32(H) 22 - 30 mmol/L INTERFACE SYSTEM 09/09/2006 2:59 PM BARREL INSPECTOR us Penny Kan MD CHEMISTRY ORDERABLES Final Resu lt INTERFACE SYSTEM Refer to clinic/hospital department documented in this encounter Visit Diagnoses Diagnosis Other malaise and fatigue- Primary documented in this encounter Care Teams Associate Professor Of Geology Relationship Specialty Start Date End Date Jimmy Armando MD PCP - General Internal Medicine 03/06/23 documented as of this encounter
--- OUTSIDE RECORDS SUMMARY | 2025-03-04 12:02 | XMS_ITS | Encounter Summary ---
Author Organization [facility] Address [address] [facility] Attn: Epic Prelude ADT SARA TARIQ [address] Care Team Providers Care Farmworker Grain Name Role Phone Jimmy Armando MD Primary Care Provider [phone] Encounter Details Date Type Department Care Team (Late st Contact Info) Description 06/09/2007 Outpatient Historical William Guadalupe MD NO ADDRESS ON FILE Social History Tobacco Use Types Packs/Day Years Used Date Smoking Tobacco: Never Assessed Comments Unknown Sex and Gender Information Value Date Recorded Sex Assigned at Not on file Legal Sex Female 4:53 AM MASTER AUTOMOTIVE TECHNICIAN Gender Identity Not on file Sexual Orientation Not on file documented as of this encounter Plan of Treatment Upcoming Encounters Date Type Department Care Team (Late st Contact Info) Description 03/08/2025 3:30 PM CDT Office Visit [facility] Oncology and Hematology - [place] [address] [facility] [address] [place] [address] Antonio Deras MD [address] [facility] [address] [place] [address] documented as of this encounter Visit Diagnoses Not on filedocumented in this encounter Care Teams Farmworker Grain Relationship Specialty Start Date End Date Jimmy Armando MD PCP - General Internal Medicine 03/06/23 documented as of this encounter
--- OUTSIDE RECORDS SUMMARY | 2025-03-04 12:02 | XMS_ITS | Encounter Summary ---
Author Organization [facility] Address [address] [place] [address] Care Team Providers Care Carcass Splitter Name Role Phone Jimmy Armando MD Primary Care Provider Encounter Details Date Type Department Care Team (Late Contact Info) Description 05/08/2004 Outpatient Historical [facility] AUDIOLOGY Conversion, History HEARING LOSS NOS (Primary Dx) Social History Tobacco Use Types Packs/Day Years Used Date Smoking Tobacco: Never Assessed Comments Unknown Sex and Gender Information Value Date Recorded Sex Assigned at Not on file Legal Sex Female 4:53 AM AIRCRAFT ENGINE MECHANIC Gender Identity Not on file Sexual Orientation Not on file documented as of this encounter Plan of Treatment Upcoming Encounters Date Type Department Care Team (Late st Contact Info) Description 03/08/2025 3:30 PM CDT Office Visit [facility] Oncology and Hematology - [place] [address] [place] [address] [facility] [address] [place] [id number] Antonio Deras MD [address] [facility] [address] [place] [address] documented as of this encounter Visit Diagnoses Diagnosis Unspecified hearing loss- Primary documented in this encounter Care Teams Carcass Splitter Relationship Specialty Start Date End Date Jimmy Armando MD PCP - General Internal Medicine 03/06/23 documented as of this encounter
--- OUTSIDE RECORDS SUMMARY | 2025-03-04 12:02 | XMS_ITS | Encounter Summary ---
Author Organization [facility] Address [address] [place] [address] Care Team Providers Care Key Operator Name Role Phone Jimmy Armando MD Primary Care Provider [phone] Encounter Details Date Type Department Care Team (Latest Contact Info) Description 08/23/[address]patient [address] [facility] Conversion, History HEARING LOSS NOS (Primary Dx) Social History Tobacco Use Types Packs/Day Years Used Date Smoking Tobacco: Never Assessed Comments Unknown Sex and Gender Information Value Date Recorded Sex Assigned at Not on file Legal Sex Female 4:53 AM HAND I TUBE BENDER Gender Identity Not on file Sexual Orientation Not on file documented as of this encounter Plan of Treatment Upcoming Encounters Date Type Department Care Team (Late st Contact Info) Description 03/08/2025 3:30 PM CDT Office Visit [facility] Oncology and Hematology - Luis[place] [address] [facility] 200 [place] [address] Antonio Deras MD [address] [facility] [address] [place] [address] documented as of this encounter Visit Diagnoses Diagnosis Unspecified hearing loss- Primary documented in this encounter Care Teams Key Operator Relationship Specialty Start Date End Date Jimmy Armando MD PCP - General Internal Medicine 03/06/23 documented as of this encounter
--- OUTSIDE RECORDS SUMMARY | 2025-03-04 12:02 | XMS_ITS | Encounter Summary ---
Author Organization [facility] Address [address] [place] [address] Care Team Providers Care Gill Net Stringer Name Role Phone Jimmy Armando MD Primary Care Provider [phone] Encounter Details Date Type Department Care Team (Late Contact Info) Description 04/05/2004 Outpatient Historical [facility] AUDIOLOGY Conversion, History ADJUSTMENT HEARING AID (Primary Dx) Social History Tobacco Use Types Packs/Day Years Used Date Smoking Tobacco: Never Assessed Comments Unknown Sex and Gender Information Value Date Recorded Sex Assigned at Not on file Legal Sex Female 4:53 AM FISHING ROD MECHANIC Gender Identity Not on file Sexual Orientation Not on file documented as of this encounter Plan of Treatment Upcoming Encounters Date Type Department Care Team (Late Contact Info) Description 03/08/2025 3:30 PM CDT Office Visit [facility] Oncology and Hematology - [place] [address] [place] [address] [facility] [address] [place] [phone] Antonio Deras MD [address] [facility] [address] [place] [address] documented as of this encounter Visit Diagnoses Diagnosis Fitting and adjustment of hearing aid- Primary documented in this encounter Care Teams Gill Net Stringer Relationship Specialty Start Date End Date Jimmy Armando MD PCP - General Internal Medicine 03/06/23 documented as of this encounter
--- OUTSIDE RECORDS SUMMARY | 2025-03-04 12:02 | XMS_ITS | Encounter Summary ---
Author Organization [facility] Address [address] [place] [address] Care Team Providers Care Plumbing Designer Name Role Phone Jimmy Armando MD Primary Care Provider [phone] Encounter Details Date Type Department Care Team (Latest Contact Info) Description 04/07/2007 Outpatient Historical [facility] [place] [address] [place] [address] Malignant Neoplasm of Breast (Female), Unspecified Site (CMS/HCC) (Primary Dx) Social History Tobacco Use Types Packs/Day Years Used Date Smoking Tobacco: Never Assessed Comments Unknown Sex and Gender Information Value Date Recorded Sex Assigned at Not on file Legal Sex Female 4:53 AM LAWN CARE TECHNICIAN Gender Identity Not on file Sexual Orientation Not on file documented as of this encounter Plan of Treatment Upcoming Encounters Date Type Department Care Team (Late st Contact Info) Description 03/08/2025 3:30 PM CDT Office Visit [facility] Oncology and Hematology - [place] [address] [facility] [address] [place] [address] Antonio Deras MD [address] [facility] [address] [place] [address] documented as of this encounter Visit Diagnoses Diagnosis Malignant neoplasm of breast (female), unspecified site- Primary documented in this encounter Care Teams Plumbing Designer Relationship Specialty Start Date End Date Jimmy Armando MD PCP - General Internal Medicine 03/06/23 documented as of this encounter
--- OUTSIDE RECORDS SUMMARY | 2025-03-04 12:02 | XMS_ITS | Encounter Summary ---
Author Organization [facility] Address [address] [place] [address] Care Team Providers Care Shirt Sewer Name Role Phone Jimmy Armando MD Primary Care Provider Encounter Details Date Type Department Care Team (Late st Contact Info) Description 04/28/2006 Outpatient Historical [facility] Rian Najera MD NO ADDRESS ON FILE Special Screening for Malignant Neoplasms, Colon (Primary Dx) Social History Tobacco Use Types Packs/Day Years Used Date Smoking Tobacco: Never Assessed Comments Unknown Sex and Gender Information Value Date Recorded Sex Assigned at Not on file Legal Sex Female 4:53 AM SCREEN OPERATOR Gender Identity Not on file Sexual Orientation Not on file documented as of this encounter Plan of Treatment Upcoming Encounters Date Type Department Care Team (Late st Contact Info) Description 03/08/2025 3:30 PM CDT Office Visit [facility] Oncology and Hematology - [place] [address] [place] [address] [facility] 200 [place] [address] Antonio Deras MD [address] [facility] [address] [place] [address] documented as of this encounter Visit Diagnoses Diagnosis Special screening for malignant neoplasms, colon- Primary documented in this encounter Care Teams Shirt Sewer Relationship Specialty Start Date End Date Jimmy Armando MD PCP - General Internal Medicine 03/06/23 documented as of this encounter
--- OUTSIDE RECORDS SUMMARY | 2025-03-04 12:02 | XMS_ITS | Encounter Summary ---
Author Organization [facility] Address [address] [place] [address] Care Team Providers Care Structural Steel Painter Name Role Phone Jimmy Armando MD Primary Care Provider [phone] Encounter Details Date Type Department Care Team (Latest Contact Info) Description 12/16/2003 Outpatient Historical HIS [facility] [place] [address] [place] [address] SCREENING MAMM-MAILG NEOPL-OTHER (Primary Dx) Social History Tobacco Use Types Packs/Day Years Used Date Smoking Tobacco: Never Assessed Comments Unknown Sex and Gender Information Value Date Recorded Sex Assigned at Not on file Legal Sex Female 4:53 AM VP INFORMATICS Gender Identity Not on file Sexual Orientation Not on file documented as of this encounter Plan of Treatment Upcoming Encounters Date Type Department Care Team (Late st Contact Info) Description 03/08/2025 3:30 PM CDT Office Visit [facility] Oncology and Hematology - [place] [address] [facility] [address] [place] [address] Antonio Deras MD [address] [facility] [address] [place] [address] documented as of this encounter Visit Diagnoses Diagnosis Other screening mammogram- Primary documented in this encounter Care Teams Structural Steel Painter Relationship Specialty Start Date End Date Jimmy Armando MD PCP - General Internal Medicine 03/06/23 documented as of this encounter
--- OUTSIDE RECORDS SUMMARY | 2025-03-04 12:02 | XMS_ITS | Encounter Summary ---
Author Organization [facility] Address [address] [place] [address] Care Team Providers Care Cyber Systems Administrator Name Role Phone Jimmy Armando MD Primary Care Provider [phone] Encounter Details Date Type Department Care Team (Latest Contact Info) Description 04/19/2009 Outpatient Historical HIS [facility] [place] [address] [place] [address] Other Screening Mammogram Social History Tobacco Use Types Packs/Day Years Used Date Smoking Tobacco: Never Assessed Comments No Sex and Gender Information Value Date Recorded Sex Assigned at Not on file Legal Sex Female 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 Gender Identity Not on file Sexual Orientation Not on file documented as of this encounter Plan of Treatment Upcoming Encounters Date Type Department Care Team (Late st Contact Info) Description 03/08/2025 3:30 PM CDT Office Visit [facility] Oncology and Hematology - [place] [address] [facility] [address] [place] [address] Antonio Deras MD [address] [facility] [address] [place] [address] documented as of this encounter Procedures Procedure Name Priority Date/Time Associated Diagnosis Comments MAMMO SCREEN BILAT W OR WO CAD Routine 04/19/2009 3:58 PM CDT documented in this encounter Results * MAMMO DIGITAL SCREEN BILAT (04/19/2009 3:58 PM CDT) Anatomical Region Laterality Modality Breast Bilateral Other 04/19/2009 3:58 PM CDT Narrative 04/20/2009 7:26 AM CDT [facility] [address] [place], [place] [address] Admit Date: 04/19/2009 ABELSHAWNEE Zapata Sex: F Admit Prov: OMAIRA PICKERING Date: 1950 Primary Care Prov: ADRIA KAUFFMAN CMRN: [id number] Room: SOY N: [id number] IMAGING SERVICES Ordering Prov: OMAIRA PICKERING Accession Number: [id number] Interpretation BILATERAL FULL FIELD DIGITAL SCREENING MAMMOGRAM WITH CAD. Date: 04/19/2009 History: Routine Screening. Technique: Full field digital craniocaudal and mediolateral oblique projections of both breasts were obtained. Computer aided diagnosis was performed. Comparison: March 2008, March 2007, February 2006 and November 2004. Breast Parenchymal Composition: Scattered fibroglandular densities. Findings: No suspicious mass, suspicious microcalcifications, or architectural distortion in either breast is identified. Since the prior study, there has been no significant interval change. The computer aided diagnosis detects no significant abnormality. Overall Assessment: BI-RADS category 1: Negative. Recommendation: Annual mammography is recommended. Assessment BIRADS: 1-Negative Recommendation: Normal interval follow-up Dictated by: RADHA GRANADOS Electronically signed by: RADHA GRANADOS 04/20/2009 07:25 Transcribed: 04/19/2009 21:18 MNJ Procedure Note Radha Granados MD - 04/20/2009 [address] [address] [place], [place] [address] Admit Date: 04/19/2009 SHAWNEE العراقي Sex: F Admit Prov: OMAIRA PICKERING Date: 1950 Primary Care Prov: JAMARI, ADRIA CMRN: [id number] Room: SOY SSN: [id number] IMAGING SERVICES Ordering Prov: OMAIRA PICKERING Interpretation BILATERAL FULL FIELD DIGITAL SCREENING MAMMOGRAM WITH CAD. Date: 04/19/2009 History: Routine Screening. Technique: Full field digital craniocaudal and mediolateral oblique projections of both breasts were obtained. Computer aided diagnosiswas performed. Comparison: March 2008, March 2007, February 2006 and November 2004. Breast Parenchymal Composition: Scattered fibroglandular densities. Findings: No suspicious mass, suspicious microcalcifications, or architectural distortion in either breast is identified. Since theprior study, there has been no significant interval change. The computeraided diagnosis detects no significant abnormality. Overall Assessment: BI-RADS category 1: Negative. Recommendation: Annual mammography is recommended. Assessment BIRADS: 1-Negative Recommendation: Normal interval follow-up Dictated by: RADHA GRANADOS Electronically signed by: RADHA GRANADOS 04/20/2009 07:25 Transcribed: 04/19/2009 21:18 SDJ Omaira Pickering MD MAMMO ORDERABLES Final Result documented in this encounter Visit Diagnoses Diagnosis Other screening mammogram documented in this encounter Care Teams Cyber Systems Administrator Relationship Specialty Start Date End Date Jimmy Armando MD PCP - General Internal Medicine 03/06/23 documented as of this encounter
--- OUTSIDE RECORDS SUMMARY | 2025-03-04 12:02 | XMS_ITS | Encounter Summary ---
Author Organization [facility] Address [address] [place] [address] Care Team Providers Care Composite Science Teacher Name Role Phone Jimmy Armando MD Primary Care Provider [phone] Encounter Details Date Type Department Care Team (Latest Contact Info) Description 11/29/2008 Outpatient Historical [facility] Penny Fuller MD [address] [facility] [address] [place] [address] Pain in Joint, Multiple Sites Social History Tobacco Use Types Packs/Day Years Used Date Smoking Tobacco: Never Assessed Comments No Sex and Gender Information Value Date Recorded Sex Assigned at Not on file Legal Sex Female 4:53 AM IN HOME CAREGIVER Gender Identity Not on file Sexual Orientation Not on file documented as of this encounter Plan of Treatment Upcoming Encounters Date Type Department Care Team (Late st Contact Info) Description 03/08/2025 3:30 PM CDT Office Visit [facility] Oncology and Hematology - Luisito [address] [facility] [address] [place] [address] Antonio Deras MD [address] [facility] [address] [place] [address] documented as of this encounter Visit Diagnoses Diagnosis Pain in joint, multiple sites documented in this encounter Care Teams Composite Science Teacher Relationship Specialty Start Date End Date Jimmy Armando MD PCP - General Internal Medicine 03/06/23 documented as of this encounter
--- OUTSIDE RECORDS SUMMARY | 2025-03-04 12:02 | XMS_ITS | Encounter Summary ---
Author Organization [facility] Address [address] [place] [address] Care Team Providers Care Sugar Plantation Manager Name Role Phone Jimmy Armando MD Primary Care Provider Encounter Details Date Type Department Care Team (Latest Contact Info) Description 02/11/2006 Outpatient Historical [facility] Penny Fuller MD [address] [facility] [address] [place] [address] Unspecified Hypothyroidism (Primary Dx) Social History Tobacco Use Types Packs/Day Years Used Date Smoking Tobacco: Never Assessed Comments Unknown Sex and Gender Information Value Date Recorded Sex Assigned at Not on file Legal Sex Female 4:53 AM 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 Gender Identity Not on file Sexual Orientation Not on file documented as of this encounter Plan of Treatment Upcoming Encounters Date Type Department Care Team (Late st Contact Info) Description 03/08/2025 3:30 PM CDT Office Visit [facility] Oncology and Hematology - [place] [address] [facility] [address] [place] [address] Antonio Deras MD [address] [facility] [address] [place] [address] documented as of this encounter Procedures Procedure Name Priority Date/Time Associated Diagnosis Comments TSH REFLEXIVE Routine 02/11/2006 12:39 PM CDT CBC WITHOUT DIFFERENTIAL Routine 02/11/2006 12:39 PM CDT T3 FREE Routine 02/11/2006 12:39 PM CDT T4 FREE Routine 02/11/2006 12:39 PM CDT LIPID PANEL Routine 02/11/2006 12:39 PM CDT COMPREHENSIVE METABOLIC PANEL Routine 02/11/2006 12:39 PM CDT documented in this encounter Results * (ABNORMAL) T3 FREE (02/11/2006 12:39 PM CDT) T3 FREE 8.8(H) 2.5 - 4.4 pg/mL INTERFACE SYSTEM 02/11/2006 12:3 9 PM CDT Penny Kan MD CHEMISTRY ORDERABLES Final Resu lt Performing Organization Address [facility] Phone Number INTERFACE SYSTEM Refer to clinic/hospital department * T4 FREE (02/11/2006 12:39 PM CDT) T4 FREE 1.3 0.9 - 1.7 ng/dL INTERFACE SYSTEM 02/11/2006 12:3 9 PM CDT Penny Kan MD CHEMISTRY ORDERABLES Final Resu lt Performing Organization Address [facility] Phone Number INTERFACE SYSTEM Refer to clinic/hospital department * (ABNORMAL) TSH REFLEXIVE (02/11/2006 12:39 PM CDT) TSH 0.03(L) 0.27 - 4.20 uU/mL INTERFACE SYSTEM 02/11/2006 12:3 9 PM CDT us Penny Kan MD CHEMISTRY ORDERABLES Final Resu lt Performing Organization Address [facility] Phone Number INTERFACE SYSTEM Refer to clinic/hospital department * (ABNORMAL) CBC WITHOUT DIFFERENTIAL (02/11/2006 12:39 PM CDT) WBC 6.8 4.0 - 9.8 K/uL INTERFACE SYSTEM RBC 4.71 3.90 - 4.90 M/uL INTERFACE SYSTEM HEMOGLOBIN 15.2(H) 11.8 - 14.8 g/dL INTERFACE SYSTEM HEMATOCRIT 42.8 35.5 - 44.0 % INTERFACE SYSTEM MCV 90.9 82.0 - 99.0 fL INTERFACE SYSTEM MCH 32.3 27.2 - 32.6 pg INTERFACE SYSTEM MCHC 35.5 31.5 - 35.5 % INTERFACE SYSTEM RDW 12.7 11.5 - 14.5 % INTERFACE SYSTEM RDW-STDEV 42.6 37.1 - 48.7 fL INTERFACE SYSTEM PLATELETS 193 140 - 350 K/uL INTERFACE SYSTEM MPV 10.9 9.3 - 12.4 fL INTERFACE SYSTEM 02/11/2006 12:3 9 PM CDT us Penny Kan MD HEMATOLOGY ORDERABLES Final Res ult INTERFACE SYSTEM Refer to clinic/hospital department * (ABNORMAL) LIPID PANEL (02/11/2006 12:39 PM CDT) CHOLESTEROL 160 100 - 199 mg/dL INTERFACE SYSTEM TRIGLYCERIDE 85 10 - 149 mg/dL INTERFACE SYSTEM HDL 63(H) 40 - 59 mg/dL INTERFACE SYSTEM CHOL/HDL RATIO 2.5 2.0 - 5.0 INTER FACE SYSTEM Comment:See interpretive david a section for risk classifications. LDL CALCULATED 80 <=99 mg/dL INTERFACE SYSTEM LIPID PANEL COMMENT See Below INTERFACE SYSTEM Comment: Adult ATP III Classifications: Cholesterol (mg/dL) Triglyceride (mg/dL) Desirable <200 Normal <150 Borderline 200 - 239 Borderline High 150 - 199 High >=240 High 200 - 499 Very High >=500 HDL Cholesterol (mg/dL) LDL (mg/dL) Low (increased risk) <40 Optimal <100 High (reduced risk) >=60 Near or above optimal 100 - 129 Borderline 130 - 159 High 160 - 189 Very High >=190 LDL calculation is not accurate if Triglycerides are greater than 400 mg /dL Pediatric NCEP Classifications: Cholesterol(<20 years),(mg/dL) Triglyceride Desirable <170 Pediatric classification Borderline 170 - 199 not defined. High >=200 HDL (<5 years) LDL (mg/dL) No Reference Range Established Desirable <110 Borderline 110 - 129 High >=130 02/11/2006 12:3 9 PM CDT Penny Kan MD CHEMISTRY ORDERABLES Final Resu lt Performing Organization Address [facility] Co de Phone Number INTERFACE SYSTEM Refer to clinic/hospital department * COMPREHENSIVE METABOLIC PANEL (02/11/2006 12:39 PM CDT) GLUCOSE 92 65 - 109 mg/dL INTERFACE SYSTEM CREATININE 0.7 0.4 - 1.2 mg/dL INTERFACE SYSTEM CALCIUM 9.2 8.6 - 10.2 mg/dL INTERFACE SYSTEM AST 15 12 - 32 U/L INTERFACE SYSTEM ALKALINE PHOSPHATASE 82 35 - 104 U/L INTERFACE SYSTEM ALT 14 0 - 31 U/L INTERFACE SYSTEM BILIRUBIN TOTAL 0.6 0.2 - 1.0 mg/dL INTERFACE SYSTEM ALBUMIN 4.1 3.4 - 4.8 g/dL INTERFACE SYSTEM TOTAL PROTEIN 7.1 6.3 - 8.6 g/dL INTERFACE SYSTEM BUN 19 6 - 20 mg/dL INTERFACE SYSTEM SODIUM 142 135 - 145 mmol/L INTERFACE SYSTEM POTASSIUM 4.5 3.5 - 4.9 mmol/L INTERFACE SYSTEM CHLORIDE 104 96 - 108 mmol/L INTERFACE SYSTEM CO2 30 22 - 30 mmol/L INTERFACE SYSTEM 02/11/2006 12:3 9 PM CDT Penny Kan MD CHEMISTRY ORDERABLES Final Resu lt Performing Organization Address [facility] Co de Phone Number INTERFACE SYSTEM Refer to clinic/hospital department documented in this encounter Visit Diagnoses Diagnosis Unspecified hypothyroidism- Primary documented in this encounter Care Teams Sugar Plantation Manager Relationship Specialty Start Date End Date Jimmy Armando MD PCP - General Internal Medicine 03/06/23 documented as of this encounter
--- OUTSIDE RECORDS SUMMARY | 2025-03-04 12:02 | XMS_ITS | Encounter Summary ---
Author Organization [facility] Address [address] [place] [address] Care Team Providers Care Morgue Keeper Name Role Phone Jimmy Armando MD Primary Care Provider [phone] Encounter Details Date Type Department Care Team (Latest Contact Info) Description 01/09/2009 Outpatient Historical [facility] Penny Fuller MD [address] [facility] [address] [place] [id number] Unspecified Essential Hypertension Social History Tobacco Use Types Packs/Day Years Used Date Smoking Tobacco: Never Assessed Comments No Sex and Gender Information Value Date Recorded Sex Assigned at Not on file Legal Sex Female 4:53 AM CERAMICS ENGINEER Gender Identity Not on file Sexual Orientation Not on file documented as of this encounter Plan of Treatment Upcoming Encounters Date Type Department Care Team (Late st Contact Info) Description 03/08/2025 3:30 PM CDT Office Visit [facility] - [place] [address] [place] [address] [facility] [address] [place] [address] Antonio Deras MD [address] [facility] [address] [place] [address] documented as of this encounter Visit Diagnoses Diagnosis Unspecified essential hypertension documented in this encounter Care Teams Morgue Keeper Relationship Specialty Start Date End Date Jimmy Armando MD PCP - General Internal Medicine 03/06/23 documented as of this encounter
--- OUTSIDE RECORDS SUMMARY | 2025-03-04 12:02 | XMS_ITS | Encounter Summary ---
Author Organization [facility] Address [address] [place] [address] Care Team Providers Care User Experience Researcher Name Role Phone Jimmy Armando MD Primary Care Provider [phone] Encounter Details Date Type Department Care Team (Late st Contact Info) Description 09/09/2006 Outpatient Historical [facility] [address] [facility] [address] [address] Penny aKn MD [address] [facility] [address] [place] [address] Social History Tobacco Use Types Packs/Day Years Used Date Smoking Tobacco: Never Assessed Comments Unknown Sex and Gender Information Value Date Recorded Sex Assigned at Not on file Legal Sex Female 4:53 AM DOCK ATTENDANT Gender Identity Not on file Sexual Orientation Not on file documented as of this encounter Plan of Treatment Upcoming Encounters Date Type Department Care Team (Late st Contact Info) Description 03/08/2025 3:30 PM CDT Office Visit [facility] Oncology and Hematology - [place] [address] [facility] [address] [place] [address] Antonio Deras MD [address] [facility] [address] [place] [address] documented as of this encounter Visit Diagnoses Not on filedocumented in this encounter Care Teams User Experience Researcher Relationship Specialty Start Date End Date Jimmy Armando MD PCP - General Internal Medicine 03/06/23 documented as of this encounter
--- OUTSIDE RECORDS SUMMARY | 2025-03-04 12:02 | XMS_ITS | Encounter Summary ---
Author Organization [facility] Address [address] [place] [address] Care Team Providers Care Long Wall Shear Operator Name Role Phone Jimmy Armando MD Primary Care Provider [phone] Encounter Details Date Type Department Care Team (Late st Contact Info) Description 12/24/2006 Outpatient [facility] [address] [place] [address]. [place], [place] [id number] Alyson Cheung MD Social History Tobacco Use Types Packs/Day Years Used Date Smoking Tobacco: Never Assessed Comments Unknown Sex and Gender Information Value Date Recorded Sex Assigned at Not on file Legal Sex Female 4:53 AM DIRECTOR MARKETING ANALYTICS Gender Identity Not on file Sexual Orientation Not on file documented as of this encounter Plan of Treatment Upcoming Encounters Date Type Department Care Team (Late st Contact Info) Description 03/08/2025 3:30 PM CDT Office Visit [facility] Oncology and Hematology - [place] [address] [place] [address] [address] [place] [address] Antonio Deras MD [address] [facility] [address] [place] [address] documented as of this encounter Visit Diagnoses Not on filedocumented in this encounter Care Teams Long Wall Shear Operator Relationship Specialty Start Date End Date Jimmy Armando MD PCP - General Internal Medicine 03/06/23 documented as of this encounter
[2025-03-04 12:16] LABS: Basophils Percent Auto 0.5 % (0.2-1.2); Eosinophils Percent Auto 0.3 % (0-4.4); Hematocrit 39.8 % (37.0-47.0); Hemoglobin 14.1 g/dL (12.0-15.0); Immature Granulocyte Absolute 0.01 K/mm3 (0.00-0.031); Immature Granulocyte Percent A 0.2 % (0-0.5); Lymphocytes Absolute Auto 0.67 K/mm3 (0.9-3.2); Lymphocytes Percent Auto 11.2 % (18.3-44.2); Mean Corpuscular HGB Conc 35.4 g/dl (32-36); Mean Corpuscular Hemoglobin 34.3 pg (26-34); Mean Corpuscular Volume 96.8 fl (80-100); Mean Platelet Volume 9.8 fl (7.4-10.4); Monocytes Absolute Auto 0.5 K/mm3 (0.1-0.6); Neutrophils Absolute Auto 4.7 K/mm3 (1.3-6.7); Neutrophils Percent Auto 78.8 % (45.5-73.1); Platelet Count Result 207 k/mm3 (150-375); Red Blood Count 4.11 M/mm3 (4.2-5.4); Red Cell Distribution Width 11.9 % (11.5-14.5)
[2025-03-04 16:30] LABS: Alanine Aminotransferase 18 U/L (6-35); Alkaline Phosphatase 70 U/L (38-126); Anion Gap 8 mmol/L (4-12); Aspartate Amino Transferase 44 U/L (14-36); Bilirubin,Total 0.7 mg/dL (0.2-1.3); Blood Urea Nitrogen 11 mg/dL (7-17); Calcium 8.7 mg/dL (8.4-10.2); Carbon Dioxide 25 mmol/L (22-30); Chloride 98 mmol/L (98-107); Estimated Glomerular Filt Rate > 60; Glucose 115 mg/dL (65-110); Potassium 4.2 mmol/L (3.4-5.0); Sodium 131 mmol/L (137-145)
== END 2025-03-04 11:59 | disposition home or self-care (01) ==
LOC: ANHLAB 11:59
PROVIDERS: PCP Internal Medicine Endocrinology, Diabetes & Metabolism; Visit Provider Internal Medicine Hematology & Oncology
DX: D75.89 Other specified diseases of blood and blood-forming organs (principal)
CPT/HCPCS: 36415; 80053; 82607; 85025